=== PATIENT | male | born 1960 | race Caucasian/White ===

== ENCOUNTER 2019-03-18 17:07 | Emergency (ER) | payer MEDICARE, SELFPAY ==
[2019-03-18 17:21] VITALS: BP 132/76; PULSE 62; RESP 20; TEMP 36.7; O2SAT 100; BMI 28.5
[2019-03-18 18:54] LABS: Basophils # 0.1 10^3/uL (0.0-0.1); Basophils % 0.6 %; Eosinophils # 0.2 10^3/uL (0.0-0.8); Eosinophils % 1.9 %; Hematocrit 50.4 % (42.0-52.0); Hemoglobin 16.5 g/dL (11.7-16.6); Lymphocytes % 18.2 %; Mean Corpuscular HGB Conc 32.7 g/dL (30.0-36.0); Mean Corpuscular Hemoglobin 28.3 pg (28.0-34.0); Mean Corpuscular Volume 86.4 fL (80-94); Mean Platelet Volume 10.6 fL (7.4-10.4); Monocytes # 0.9 10^3/uL (0.2-0.9); Monocytes % 8.1 %; Neutrophils # 7.6 10^3/uL (1.8-7.7); Neutrophils % 70.6 %; Nucleated Red Blood Cells % 0 %; Platelet Count 210 10^3/cmm (130-400); Red Blood Count 5.83 10^6/uL (4.1-5.3); Red Cell Distribution Width 13.8 % (12.1-15.1); White Blood Count 10.8 10^3/uL (4.0-10.0)
[2019-03-18 19:02] LABS: Alanine Aminotransferase 20 U/L (0-41); Albumin Level 4.8 g/dL (3.5-5.2); Alkaline Phosphatase 106 IU/L (40-130); Anion Gap 16.1 (5-19); Aspartate Amino Transferase 17 U/L (0-40); Blood Urea Nitrogen 11 mg/dL (6-20); Carbon Dioxide 26 mmol/L (22-29); Chloride 99 mmol/L (98-107); Glomerular Filtration Rate 98.9 mL/min (90-130); Glucose 139 mg/dL (74-109); Lipase 196 U/L (13-60); Potassium 4.1 mmol/L (3.5-5.1); Sodium 137 mmol/L (136-145); Total Bilirubin 0.5 mg/dL (0.15-1.2); Total Protein 7.8 g/dL (6.6-8.7)
--- NOTE | 2019-03-18 19:47 | ED_ITS ---
Entered by Karena Stroud, acting as scribe for Lisa Sanchez Mar 18, 2019 17:07 HPI - Abdominal Pain General: Chief Complaint: Abdominal Pain Stated Complaint: abd pain Time Seen by Provider: 03/18/19 19:46 Source: patient Mode of arrival: ambulatory Limitations: no limitations History of Present Illness: HPI narrative: 59 yo male presents to ED with complaints of abdominal pain, nausea, and back pain. He said it feels like his stomach is going to blow up. The patient states this began Friday03.13.2019. He said he has pancreatitis. He said he has basically been on a liquid diet since then, with the exception of some eggs. The patient states he has had this pancreatitis flare due to eating the wrong foods. He denies alcohol use. MD elicited complaint: abdominal pain Pertinent past history: other (pancreatitis) Onset (ago): day(s) (5 days) Pain Consistency: constant Location: Diffuse Severity: moderate Quality: cramping Radiation: none Migration to: no migration Exacerbating factors: nothing Relieving factors: nothing Associated Symptoms: Denies chills, coffee ground emesis, constipation, GI cramping, diarrhea, dysuria, fever(s), hematochezia, hematuria, hematemesis, melena, nausea, syncope and vomiting Review of Systems Const: Denies: fever or chills Card: Denies: syncope GI: Denies: nausea, vomiting, vomiting blood, coffee grounds in vomit, diarrhea, constipation, cramping, blood in stool or black tarry stool : Denies: painful urination or blood in urine PFSH ED PFSH: Statuses (acute, chronic, etc) shown below reflect problem list status as previously entered and may not be historically accurate Social History Smoking and tobacco status: current every day smoker Physical Exam Const: COMMON NORMALS: no apparent distress, oriented x3, no limitations, healthy appearing and well nourished EXAM LIMITATIONS: no altered mental status GENERAL APPEARANCE: cooperative, well kempt and well developed ORIENTATION/CONSCIOUSNESS: Yes awake HENMT: COMMON NORMALS: normocephalic, head/scalp atraumatic, hearing grossly normal bilaterally, external ears normal, EAC's normal, external nose normal and moist oral mucous membranes HEAD & SCALP: normal to inspection, normocephalic and atraumatic FACE & SINUS: normal facial exam and face symmetric NOSE: external nose normal and nares normal EXTERNAL EAR: Yes external ears normal EXTERNAL AUDITORY CANAL: EAC's normal MOUTH: oral and palatal mucosa normal and tongue normal Eye: COMMON NORMALS: PERRL, EOMs intact bilaterally, conjunctivae normal and no scleral icterus GENERAL EYE: normal appearance of both eyes and normal light reflex CONJUNCTIVA: Yes conjunctivae normal SCLERA: sclerae normal CORNEA: Yes corneas normal PUPIL: Yes PERRL DIRECT OPHTHALMOSCOPY: Yes normal light reflex Neck/C-Spine: COMMON NORMALS: full ROM, no lymphadenopathy, supple, no meningeal signs and no JVD GENERAL: Yes normal visual inspection and Yes trachea midline CERVICAL SPINE: Yes cervical ROM normal Chest: COMMONS NORMALS: inspection of chest normal and palpation of chest normal Resp: COMMON NORMALS: normal respiratory effort, no retractions, no use of accessory muscles and clear to auscultation bilaterally EFFORT & INSPECTION: Yes able to speak in complete sentences AUSCULTATION: clear to auscultation bilaterally Cardio: COMMON NORMALS: no JVD, regular rate, regular rhythm, S1 normal heart sound, S2 normal heart sound, no gallops, no clicks, no murmurs and no rub JUGULAR VENOUS DISTENTION: no JVD RATE: regular rate RHYTHM: regular rhythm HEART SOUNDS: S1 normal and S2 normal GI: COMMON NORMALS: soft to palpation and no hepatosplenomegaly PALPATION: Yes soft, Yes tender Details: other (Diffusely) and Yes no hepatosplenomegaly : COMMON NORMALS: Yes no CVA tenderness BLADDER/KIDNEY EXAM: Yes no CVA tenderness Back/Pelvis: COMMON NORMALS: no CVA tenderness, thoracic and lumbar spine normal to inspection, no thoracic nor lumbar tenderness and thoraco-lumbar ROM normal Extremity: COMMON NORMALS: normal to inspection, full ROM, normal capillary refill, no joint enlargement, no clubbing, cyanosis or edema and no calf tenderness Neuro: COMMON NORMALS: oriented x3, CN's II-XII intact bilaterally, moves all extremities, no focal motor deficits and no sensory deficits noted MENINGEAL SIGNS: Yes no meningeal signs Psych: COMMON NORMALS: mental status grossly normal, thought process normal, cooperative, affect normal, speech normal and activity/motor behavior normal APPEARANCE: Yes well kempt SPEECH: Yes normal speech THOUGHT PROCESS: normal thought process Skin: COMMON NORMALS: no rashes or lesions noted, skin turgor normal, no jaundice, no petechiae and no mottling GENERAL SKIN EXAM: no rashes or les ions noted and turgor normal Course Vital Signs: Vital signs: Vital Signs Temperature 98.0 F 03/18/19 17:21 Pulse Rate 50 L 03/18/19 23:57 Respiratory Rate 18 03/18/19 23:57 Blood Pressure 123/60 03/18/19 23:57 Pulse Oximetry 98 03/18/19 23:57 MDM - Abdominal Pain MDM Narrative: Medical decision making narrative: 2345-we have been waiting for Dr. Austin to admit the patient but now the patient has changed his mind and wants to be discharged. He agrees to return should his symptoms change or worsen but at this time he would like to go home. He agrees to return should his symptoms change or worsen but his plan is to follow-up with his primary care physician Dr. Flores tomorrow and he will return here only if necessary. He agrees to follow a clear liquid diet, take pain medications and nausea medicines as necessary. Lab Data: Attestation: I reviewed the patient's lab results. Labs: Lab Results 03/18/19 03/18/19 03/18/19 Range/Units 18:40 18:40 21:01 WBC 10.8 H (4.0-10.0) 10^3/ uL RBC 5.83 H (4.1-5.3) 10^6/u L Hgb 16.5 (11.7-16.6) g/dL Hct 50.4 (42.0-52.0) % MCV 86.4 (80-94) fL MCH 28.3 (28.0-34.0) pg MCHC 32.7 (30.0-36.0) g/dL RDW 13.8 (12.1-15.1) % Plt Count 210 (130-400) 10^3/c mm MPV 10.6 H (7.4-10.4) fL Neut % (Auto) 70.6 % Lymph % (Auto) 18.2 % [place] % (Auto) 8.1 % Eos % (Auto) 1.9 % Baso % (Auto) 0.6 % Neut # (Auto) 7.6 (1.8-7.7) 10^3/u L Lymph # (Auto) 2.0 (0.8-4.8) 10^3/u L [place] # (Auto) 0.9 (0.2-0.9) 10^3/u L Eos # (Auto) 0.2 (0.0-0.8) 10^3/u L Baso # (Auto) 0.1 (0.0-0.1) 10^3/u L Nucleated RBC % (a uto) 0 % Nucleated RBCs # 0.0 /100WBC Sodium 137 (136-145) mmol/L Potassium 4.1 (3.5-5.1) mmol/L Chloride 99 (98-107) mmol/L Carbon Dioxide 26 (22-29) mmol/L Anion Gap 16.1 (5-19) BUN 11 (6-20) mg/dL Creatinine 0.8 (0.7-1.2) mg/dL GFR Calculation 98.9 (90-130) mL/min Glucose 139 H (74-109) mg/dL Calcium 10.0 (8.6-10.0) mg/Dl Total Bilirubin 0.5 (0.15-1.2) mg/dL AST 17 (0-40) U/L ALT 20 (0-41) U/L Alkaline Phosphata se 106 (40-130) IU/L Total Protein 7.8 (6.6-8.7) g/dL Albumin 4.8 (3.5-5.2) g/dL Globulin 3.0 (1.3-4.6) g/dL Lipase 196 H (13-60) U/L Urine Color Yellow (Yellow) Urine Appearance Clear (CLEAR) Urine pH 5 (5-7) Ur Specific Gravit y 1.025 (1.005-1.030) Urine Protein Neg (Negative) Urine Glucose (UA) Norm (Normal) Urine Ketones 2+ H (Negative) Urine Occult Blood Neg (Negative) Urine Nitrate Negative (Negative) Urine Bilirubin Neg (NEGATIVE) Urine Urobilinogen 1 H (Negative) mg/dL Ur Leukocyte Rachel ase Negative (Negative) Urine RBC 0-4 H (0-2) /hpf Urine WBC None (0-5) /hpf Ur Squamous Epith Cells None (0-5) Urine Bacteria Trace (NONE) Urine Mucus 2+ Imaging Data ^: CT Abd/Pel: Radiologist's impression: [facility] [address] [place] [address] CT Scan Report Signed Patient: Pranav Johnson MR#: [id number] : 1960 Acct:[id number] Age/Sex: 59 / M ADM Date: 03/18/19 Loc: ER Attending Dr: Ordering Physician: Lisa Sanchez DO Date of Service: 03/18/19 Procedure(s): CT abdomen pelvis w con* [id number] Accession Number(s): [id number] cc: Lisa Sanchez DO PROCEDURE INFORMATION: Exam: CT Abdomen And Pelvis With Contrast Exam date and time: 03/18/2019 8:27 PM Age: 59 years old Clinical indication: Abdominal pain; Prior surgery; Surgery type: Gb TECHNIQUE: Imaging protocol: Computed tomography of the abdomen and pelvis with intravenous contrast. Total DLP: 846.68 mGy-cm Radiation optimization: All CT scans at this facility use at least one of these dose optimization techniques: automated exposure control; mA and/or kV adjustment per patient size (includes targeted exams where dose is matched to clinical indication); or iterative reconstruction. Contrast material: OMNI 300; Contrast volume: 95 ml; Contrast route: IV; COMPARISON: CT Abdom[place] [id number] 01/12/2019 5:12 PM FINDINGS: Lungs: Lung bases are clear. Liver: The liver is normal. Gallbladder and bile ducts: The gallbladder is absent. There is no intrahepatic or extrahepatic bile duct dilation. Pancreas: There is subtle diffuse peripancreatic edema. Calcifications are seen in the pancreatic head suggesting chronic pancreatitis. The pancreatic duct is mildly dilated in the head. No mass. No fluid collection. Spleen: The spleen is unremarkable. Adrenals: The adrenal glands are unremarkable. Kidneys and ureters: There is a nonobstructive stone in the left kidney. There is no hydronephrosis or ureteral dilation. The right kidney and ureter are unremarkable. Stomach and bowel: The stomach is unremarkable. The small bowel is nondilated. There is no sign of inflammation. The colon is unremarkable. Appendix: The appendix is normal. Intraperitoneal space: There is no free air or significant intraperitoneal free fluid. Vasculature: There is mild aortic atherosclerotic disease. Lymph nodes: There is no lymphadenopathy in the retroperitoneum, mesentery, pelvis or inguinal regions. Bladder: The urinary bladder is unremarkable. Reproductive: The prostate and seminal vesicles are unremarkable. Bones/joints: There is moderate degenerative disease in the lumbar spine. There is mild degenerative disease of the right hip. Soft tissues: The abdominal wall is intact. CT/CT abdomen pelvis w con* [id number] IMPRESSION: Suspect mild acute on chronic interstitial edematous pancreatitis. No hemorrhage or fluid collection. Radiation Dose CTDIVOL = (mGy): DLP = 846.68 (mGy-cm) Dictated By: Matthias Castrejon MD 03/18/192129 Signed By: Matthias Castrejon MD 03/18/192130 Discharge Plan Discharge Patient Disposition: Home, Self-Care Clinical Impression: Pancreatitis Qualifiers: Chronicity: chronic Pancreatitis type: idiopathic Qualified Code(s): K86.1 - Other chronic pancreatitis Condition: Stable Prescriptions: [place] 5-325 mg tablet 1 tab PO Q8H PRN (Reason: pain) Qty: 14 RF: 0 Discharge Orders: Discharge Order (Routine); Ordered 03/18/19 Ordered By: Lisa Sanchez Referrals: Hector Flores DO [Primary Care Provider] - 1-3 days Discharge Diet: Clear Liquid Discharge Activity: Increase activity as tolerated Patient Instructions: Pancreatitis (ED) Activity Restrictions/Additional Instructions: Please return to the ER immediately for any of the signs or symptoms listed on your discharge instruction sheets, worsening/changing of your symptoms, you are not getting better as quickly as expected, or for ANY other cause or concerns. Follow a clear liquid diet and take the pain medications as I have prescribed you. Be certain to follow-up with Dr. Flores or return here if your symptoms change or worsen at all. Discharge Date/Time: 03/18/19 23:59 Coding Level of Care Code ED Supervisor [employer] for Chg Fwd The documentation recorded by the Luanne meehan Valerie R, accurately reflects the service I personally performed and the decisions made by Daniel henderson Eli N Mar 18, 2019 17:07
--- NOTE | 2019-03-18 19:52 | CTR_ITS ---
PROCEDURE INFORMATION: Exam: CT Abdomen And Pelvis With Contrast Exam date and time: 03/18/2019 8:27 PM Age: 59 years old Clinical indication: Abdominal pain; Prior surgery; Surgery type: Gb TECHNIQUE: Imaging protocol: Computed tomography of the abdomen and pelvis with intravenous contrast. Total DLP: 846.68 mGy-cm Radiation optimization: All CT scans at this facility use at least one of these dose optimization techniques: automated exposure control; mA and/or kV adjustment per patient size (includes targeted exams where dose is matched to clinical indication); or iterative reconstruction. Contrast material: OMNI 300; Contrast volume: 95 ml; Contrast route: IV; COMPARISON: CT Abdomen/[place] [id number] 01/12/2019 5:12 PM FINDINGS: Lungs: Lung bases are clear. Liver: The liver is normal. Gallbladder and bile ducts: The gallbladder is absent. There is no intrahepatic or extrahepatic bile duct dilation. Pancreas: There is subtle diffuse peripancreatic edema. Calcifications are seen in the pancreatic head suggesting chronic pancreatitis. The pancreatic duct is mildly dilated in the head. No mass. No fluid collection. Spleen: The spleen is unremarkable. Adrenals: The adrenal glands are unremarkable. Kidneys and ureters: There is a nonobstructive stone in the left kidney. There is no hydronephrosis or ureteral dilation. The right kidney and ureter are unremarkable. Stomach and bowel: The stomach is unremarkable. The small bowel is nondilated. There is no sign of inflammation. The colon is unremarkable. Appendix: The appendix is normal. Intraperitoneal space: There is no free air or significant intraperitoneal free fluid. Vasculature: There is mild aortic atherosclerotic disease. Lymph nodes: There is no lymphadenopathy in the retroperitoneum, mesentery, pelvis or inguinal regions. Bladder: The urinary bladder is unremarkable. Reproductive: The prostate and seminal vesicles are unremarkable. Bones/joints: There is moderate degenerative disease in the lumbar spine. There is mild degenerative disease of the right hip. Soft tissues: The abdominal wall is intact. CT/CT abdomen pelvis w con* [id number] IMPRESSION: Suspect mild acute on chronic interstitial edematous pancreatitis. No hemorrhage or fluid collection. Radiation Dose CTDIVOL = (mGy): DLP = 846.68 (mGy-cm)
[2019-03-18 20:32] VITALS: RESP 18; O2SAT 96
[2019-03-18] MEDS: HYDROmorphone 1 mg/mL INJ 1 mL IVP ×2 (20:32→21:57)
[2019-03-18] MEDS: ondansetron 2 mg/ML SDV 2 mL 4 MG IVP (20:33)
[2019-03-18] MEDS: sodium chloride 0.9% 2,857.62 ML 2857.6 ML IV (20:34)
[2019-03-18] MEDS: iohexol 300 mg/mL 100 mL Btl 95 ML IV (20:46)
[2019-03-18 21:20] LABS: Bilirubin Urine Neg (NEGATIVE); Blood Urine Neg (Negative); Glucose Urine UA Norm (Normal); Ketones Urine 2+ (Negative); Leukocyte Esterase Urine Negative (Negative); Nitrate Urine Negative (Negative); Protein Urine Neg (Negative); Specific Gravity, Urine 1.025 (1.005-1.030); Urine Appearance Clear (CLEAR); Urine Color Yellow (Yellow); Urobilinogen Urine 1 mg/dL (Negative); pH Urine 5 (5-7)
--- NOTE | 2019-03-18 21:27 | PC.NURSE ---
PT WAITING CT RESULTS AND LAB RESULTS. IVF'S INFUSING WITHOUT DIFFICULTY. MONITOR RECORDING VITAL SIGNS. NAD. RESTING WITH EYES OPEN.
[2019-03-18 21:32] LABS: Add Urine Culture? No; Bacteria Urine TRACE; Mucus Urine 2+; RBC Urine 0-4 /hpf (0-2)
[2019-03-18 23:57] VITALS: BP 123/60; PULSE 50; RESP 18; O2SAT 98
== END 2019-03-18 23:59 | disposition home or self-care (01) ==
PROVIDERS: Emergency Medicine; Emergency Provider Emergency Medicine; Family Provider Family Medicine; PCP Family Medicine
DX: K86.1 Other chronic pancreatitis (principal); F17.210 Nicotine dependence, cigarettes, uncomplicated
CPT/HCPCS: 36415; 74177; 80053; 81001; 83690; 85025; 96360; 96374; 96375; 99282; J1170; J2405; J7030; Q9967

== ENCOUNTER → 2019-07-28 11:02 | Outpatient (BNVA) | payer MEDICARE, SELFPAY | PROVIDERS: Family Provider Family Medicine; PCP Family Medicine; Visit Provider Family Medicine | DX: K86.1 Other chronic pancreatitis (principal); E55.9 Vitamin D deficiency, unspecified | CPT/HCPCS: 36415; 80053; 80061; 82150; 82306; 83690; 85025 ==

== ENCOUNTER 2019-10-14 19:18 | Emergency (ER) | payer MEDICARE, SELFPAY ==
[2019-10-14] VITALS (7 sets, daily range): BP systolic 107–123; BP diastolic 61–83; PULSE 70–83; RESP 14–17; TEMP 37.3; O2SAT 94–96; BMI 27.1
--- NOTE | 2019-10-14 20:03 | XRR_ITS ---
PROCEDURE INFORMATION: Exam: XR Chest, 1 View Exam date and time: 10/14/2019 8:29 PM Age: 59 years old Clinical indication: Other: Pleuritic pain; Prior surgery; Surgery type: Gb TECHNIQUE: Imaging protocol: XR of the chest Views: 1 view. COMPARISON: CR Chest 2 views* [id number] 07/20/2015 7:11 PM FINDINGS: Lungs: Linear platelike atelectasis suspected within the lingula adjacent to the left heart border. Lungs are otherwise well aerated. Pleural space: Unremarkable. No pleural effusion. No pneumothorax. Heart/Mediastinum: Unremarkable. No cardiomegaly. Bones/joints: Unremarkable. XR/XR chest 1V portable [id number] IMPRESSION: Linear platelike atelectasis suspected within the lingula adjacent to the left heart border. Lungs are otherwise well aerated.
--- NOTE | 2019-10-14 20:03 | CTR_ITS ---
PROCEDURE INFORMATION: Exam: CT Abdomen And Pelvis With Contrast Exam date and time: 10/14/2019 8:14 PM Age: 59 years old Clinical indication: Abdominal pain; Localized; Right lower quadrant (rlq); Prior surgery; Surgery type: Gb, pancreatic stent TECHNIQUE: Imaging protocol: Computed tomography of the abdomen and pelvis with intravenous contrast. Radiation optimization: All CT scans at this facility use at least one of these dose optimization techniques: automated exposure control; mA and/or kV adjustment per patient size (includes targeted exams where dose is matched to clinical indication); or iterative reconstruction. Contrast material: OMNI 300; Contrast volume: 95 ml; Contrast route: INTRAVENOUS (IV); COMPARISON: CT abdomen pelvis w con* [id number] 03/18/2019 9:00 PM RADIATION DOSE METRICS: Total DLP (mGy-cm): 717.28 FINDINGS: Liver: Normal. No mass. Gallbladder and bile ducts: Cholecystectomy. Pancreas: Pancreatic duct stent. Spleen: Normal. No splenomegaly. Adrenals: Normal. No mass. Kidneys and ureters: Left kidney nonobstructive calyceal stone. Stomach and bowel: Constipation. Appendix: No evidence of appendicitis. Intraperitoneal space: Unremarkable. No free air. No significant fluid collection. Vasculature: Unremarkable. No abdominal aortic aneurysm. Lymph nodes: Unremarkable. No enlarged lymph nodes. Bladder: Unremarkable as visualized. Reproductive: Unremarkable as visualized. Bones/joints: Unremarkable. No acute fracture. Soft tissues: Unremarkable. CT/CT abdomen pelvis w con* [id number] IMPRESSION: 1. Negative for acute inflammatory process in the abdomen or pelvis 2. Pancreatic duct stent. 3. Cholecystectomy. 4. Left kidney nonobstructive calyceal stone. 5. Constipation. Radiation Dose CTDIVOL = (mGy): DLP = 717.28 (mGy-cm)
--- NOTE | 2019-10-14 20:06 | W.ED.ABDPA2 ---
HPI - Abdominal Pain General: Chief Complaint: Abdominal Pain Stated Complaint: ab pain Time Seen by Provider: 10/14/19 19:59 Source: patient Mode of arrival: ambulatory Limitations: no limitations History of Present Illness: HPI narrative: Pranav is a nice 59-year-old male who comes in complaining of right upper quadrant abdominal pain. 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 He denies any vomiting but has been nauseated. He denies any lower abdominal pain. He has been constipated but he states that is not atypical for him. The patient is most concerned about his pancreatic stent. 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 There is currently still a stent in place and he is scheduled to have it out next Friday. Patient is concerned this could be causing that problem. He states his pain is not like his typical pancreatic pain and more like a pulled muscle. The patient states it is possible he may have just pulled a muscle when he was painting. His gallbladder is gone. Denies any cough or shortness of breath or chest pain. Associated Symptoms: Denies chills, coffee ground emesis, constipation, GI cramping, diarrhea, dysuria, fever(s), heartburn, hematochezia, hematuria, hematemesis, melena, nausea, syncope and vomiting Review of Systems Const: Denies: fever(s), chills, body aches, fatigue, malaise or diaphoresis Eyes: Denies: change in vision, blurry vision, blind spots, photophobia, eye discharge or eye redness ENMT: Denies: throat pain, odynophagia, hoarseness, swelling of lips/tongue, oral sores, ear or mastoid pain, ear discharge, change in hearing or nasal discharge Card: Denies: chest pain, palpitations, irregular heart rhythm, edema, lightheadedness, syncope, pre-syncope, dyspnea on exertion or orthopnea Resp: Denies: dyspnea, productive cough, non-productive cough, wheezing, hemoptysis or chest congestion GI: Denies: nausea, vomiting, hematemesis, coffee ground emesis, heartburn, diarrhea, constipation, GI cramping, hematochezia or melena : Denies: flank pain, dysuria, urinary frequency, urinary urgency or hematuria Musc: Denies: neck pain, back pain, extremity pain, extremity swelling, joint pain, joint swelling, joint redness, joint warmth or joint stiffness Skin/Breast: Denies: rash, pruritus, erythema, skin tenderness or jaundice Neuro: Denies: headache(s), numbness in extremities, weakness in extremities, sensory changes, lack of coordination, difficulty walking, dizziness, vertigo, confusion, Slurred speech present or seizure-like activity Ian/Lymph: Denies: easy bruising, easy bleeding, petechiae, purpura or enlarged lymph nodes All/Imm: Denies: urticaria, throat swelling, tongue swelling, facial swelling or acute wheezing PFSH ED PFSH: Medical History (Updated 10/14/19 @ 22:04 by Lisa Sanchez) Acute pancreatitis Diabetes GERD (gastroesophageal reflux disease) Hyperlipidemia Idiopathic chronic pancreatitis Insomnia Presence of pancreatic duct stent PTSD (post-traumatic stress disorder) Surgical History (Updated 10/14/19 @ 20:07 by Lisa Sanchez) History of back surgery S/P cholecystectomy Social History Smoking and tobacco status: current every day smoker cigarettes Packs smoked per day: 1 Alcohol intake: never Physical Exam Const: COMMON NORMALS: no acute distress, patient oriented x3, no limitations, healthy appearing and well nourished GENERAL APPEARANCE: cooperative, well kempt and well developed HENMT: COMMON NORMALS: normocephalic, atraumatic, external ears normal, EAC's normal and Normal external nose present HEAD & SCALP: normal to inspection, normocephalic and atraumatic FACE & SINUS: normal facial exam and face symmetric NOSE: Normal external nose present and Normal nares present EXTERNAL EAR: Yes external ears normal EXTERNAL AUDITORY CANAL: EAC's normal MOUTH: Normal oral and palatal mucosa present, lip normal and tongue normal Eye: COMMON NORMALS: Equal, round and reactive pupils present and conjunctivae normal GENERAL EYE: appearance normal, both eyes and all related structures ALIGNMENT: Yes alignment normal PERIORBITAL: periorbital findings normal EYELID: eyelids normal CONJUNCTIVA: Yes conjunctivae normal SCLERA: sclerae normal PUPIL: Yes Equal, round and reactive pupils present Neck/C-Spine: COMMON NORMALS: full ROM, no lymphadenopathy, supple, no meningeal signs and no JVD GENERAL: Yes normal visual inspection and Yes trachea midline Chest: COMMONS NORMALS: normal inspection of the chest and normal palpation of entire chest wall Resp: COMMON NORMALS: normal respiratory effort, No retractions and No use of accessory muscles EFFORT & INSPECTION: Yes able to speak in complete sentences and Yes symmetric chest movement AUSCULTATION: no crackles, no rales, no rhonchi and no wheezes Cardio: COMMON NORMALS: no JVD, regular rate, regular rhythm, S1 normal heart sound present and S2 normal heart sound present RATE: regular rate RHYTHM: regular rhythm HEART SOUNDS: S1 normal heart sound present, S2 normal heart sound present, no click, no gallops, no murmurs, no rubs and abnormal split S2 GI: COMMON NORMALS: Soft to palpation and No hepatosplenomegaly present PALPATION: Yes Soft to palpation, Yes Tenderness to palpation present (GI) (Moderate diffusely), No Guarding due to palpation present (GI), No Rigid due to palpation, Yes No hepatosplenomegaly present, No Hernia present, No Palpable mass present and No Pulsatile mass present : COMMON NORMALS: Yes no CVA tenderness BLADDER/KIDNEY EXAM: Yes no CVA tenderness Back/Pelvis: COMMON NORMALS: no CVA tenderness, thoracic and lumbar spine normal to inspection, no thoracic nor lumbar tenderness and thoraco-lumbar ROM normal Extremity: COMMON NORMALS: normal to inspection, full ROM, capillary refill normal, no joint enlargement, no clubbing, cyanosis or edema and no calf tenderness Neuro: COMMON NORMALS: patient oriented x3, CN's II-XII intact bilaterally, moves all extremities, no focal motor deficits and no sensory deficits noted MENINGEAL SIGNS: Yes no meningeal signs SPEECH: speech normal Psych: COMMON NORMALS: mental status grossly normal, Normal thought process present, cooperative, normal affect, speech normal and activity/motor behavior normal APPEARANCE: Yes well kempt SPEECH: Yes normal speech THOUGHT PROCESS: Normal thought process present Skin: COMMON NORMALS: no rashes or lesions noted, turgor normal, no jaundice, no petechiae and no mottling GENERAL SKIN EXAM: no rashes or lesions noted and turgor normal Course Vital Signs: Vital signs: Vital Signs Temperature 99.1 F 10/14/19 19:54 Pulse Rate 75 10/14/19 22:11 Respiratory Rate 16 10/14/19 22:11 Blood Pressure 115/67 10/14/19 22:11 Pulse Oximetry 95 10/14/19 22:11 MDM - Abdominal Pain MDM Narrative: Medical decision making narrative: The case was reviewed with 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 Reyes. He agrees with the patient's work-up and plan. He believes the patient can be discharged to follow-up with him on Friday as scheduled. I see no sign of acute life threats in the patient's abdomen or based upon his history or physical exam. He could be gastritis, pulled muscle, early pneumonia, or several other things that could be present. The patient declines any further evaluation and care at this time as a CT scan is shown his stents in place he is satisfied and ready to go home. He agrees to return should his symptoms change or worsen and he will follow-up as directed with his plant maintenance engineer. Lab Data: Attestation: I reviewed the patient's lab results. Labs: Lab Results 10/14/19 10/14/19 10/14/19 Range/Units 20:05 20:05 20:05 WBC 11.7 H (4.0-10.0) 10^3/ uL RBC 5.68 H (4.1-5.3) 10^6/u L Hgb 16.6 (11.7-16.6) g/dL Hct 50.9 (42.0-52.0) % MCV 89.6 (80-94) fL MCH 29.2 (28.0-34.0) pg MCHC 32.6 (30.0-36.0) g/dL RDW 13.3 (12.1-15.1) % Plt Count 188 (130-400) 10^3/c mm MPV 10.2 (7.4-10.4) fL Neut % (Auto) 67.0 % Lymph % (Auto) 18.5 % [place] % (Auto) 10.1 % Eos % (Auto) 2.7 % Baso % (Auto) 0.8 % Neut # (Auto) 7.84 H (1.8-7.7) 10^3/u L Lymph # (Auto) 2.2 (0.8-4.8) 10^3/u L [place] # (Auto) 1.2 H (0.2-0.9) 10^3/u L Eos # (Auto) 0.3 (0.0-0.8) 10^3/u L Baso # (Auto) 0.1 (0.0-0.1) 10^3/u L Nucleated RBC % (a uto) 0 % Nucleated RBCs # 0.0 /100WBC D-Dimer 0.54 (0-0.59) ug/mIFE U Sodium 136 (136-145) mmol/L Potassium 4.5 (3.5-5.1) mmol/L Chloride 98 (98-107) mmol/L Carbon Dioxide 30 H (22-29) mmol/L Anion Gap 12.5 (5-19) BUN 18 (6-20) mg/dL Creatinine 1.0 (0.7-1.2) mg/dL GFR Calculation 76.5 L (90-130) mL/min Glucose 135 H (65-115) mg/dL Calculated Osmolal ity 281 L (285-295) mOsm/k g Calcium 9.6 (8.5-10.5) mg/dL Total Bilirubin 0.5 (0.15-1.2) mg/dL AST 15 (0-40) U/L ALT 16 (0-41) U/L Alkaline Phosphata se 110 (40-130) IU/L Total Protein 7.5 (6.6-8.7) g/dL Albumin 4.6 (3.5-5.2) g/dL Globulin 2.9 (1.3-4.6) g/dL Lipase 130 H (13-60) U/L Urine Color (Yellow) Urine Appearance (CLEAR) Urine pH (5-7) Ur Specific Gravit y (1.005-1.030) Urine Protein (Negative) Urine Glucose (UA) (Normal) Urine Ketones (Negative) Urine Blood (Negative) Urine Nitrate (Negative) Urine Bilirubin (NEGATIVE) Urine Urobilinogen (Negative) mg/dL Ur Leukocyte Rachel ase (Negative) Urine RBC (0-2) /hpf Urine WBC (0-5) /hpf Ur Squamous Epith Cells (0-5) Amorphous Sediment Urine Bacteria (NONE) 10/14/19 Range/Units 21:16 WBC (4.0-10.0) 10^3/ uL RBC (4.1-5.3) 10^6/u L Hgb (11.7-16.6) g/dL Hct (42.0-52.0) % MCV (80-94) fL MCH (28.0-34.0) pg MCHC (30.0-36.0) g/dL RDW (12.1-15.1) % Plt Count (130-400) 10^3/c mm MPV (7.4-10.4) fL Neut % (Auto) % Lymph % (Auto) % [place] % (Auto) % Eos % (Auto) % Baso % (Auto) % Neut # (Auto) (1.8-7.7) 10^3/u L Lymph # (Auto) (0.8-4.8) 10^3/u L [place] # (Auto) (0.2-0.9) 10^3/u L Eos # (Auto) (0.0-0.8) 10^3/u L Baso # (Auto) (0.0-0.1) 10^3/u L Nucleated RBC % (a uto) % Nucleated RBCs # /100WBC D-Dimer (0-0.59) ug/mIFE U Sodium (136-145) mmol/L Potassium (3.5-5.1) mmol/L Chloride (98-107) mmol/L Carbon Dioxide (22-29) mmol/L Anion Gap (5-19) BUN (6-20) mg/dL Creatinine (0.7-1.2) mg/dL GFR Calculation (90-130) mL/min Glucose (65-115) mg/dL Calculated Osmolal ity (285-295) mOsm/k g Calcium (8.5-10.5) mg/dL Total Bilirubin (0.15-1.2) mg/dL AST (0-40) U/L ALT (0-41) U/L Alkaline Phosphata se (40-130) IU/L Total Protein (6.6-8.7) g/dL Albumin (3.5-5.2) g/dL Globulin (1.3-4.6) g/dL Lipase (13-60) U/L Urine Color Dark yellow (Yellow) Urine Appearance Clear (CLEAR) Urine pH 5 (5-7) Ur Specific Gravit y 1.020 (1.005-1.030) Urine Protein Neg (Negative) Urine Glucose (UA) 4+ H (Normal) Urine Ketones Negative (Negative) Urine Blood Neg (Negative) Urine Nitrate Negative (Negative) Urine Bilirubin Neg (NEGATIVE) Urine Urobilinogen 1 H (Negative) mg/dL Ur Leukocyte Rachel ase Negative (Negative) Urine RBC Rare (0-2) /hpf Urine WBC 0-4 H (0-5) /hpf Ur Squamous Epith Cells Rare (0-5) Amorphous Sediment Not Reportable Urine Bacteria Trace (NONE) Imaging Data ^: CXR: My impression: No acute cardiopulmonary findings. Atelectasis left lung base CT Abd/Pel: Radiologist's impression: [place] [address] CT Scan Report Signed Patient: Pranav Johnson Unit #: [id number] : [id number] Age/Sex: 59 / M ADM Date: 10/14/19 Loc: ER Room/Bed: Attending Dr: Ordering Provider/Ordering MD: Lisa Sanchez DO Date of Service: 10/14/19 Procedure(s): CT abdomen pelvis w con* [id number] Accession Number(s): [id number] Report Number: [id number] PROCEDURE INFORMATION: Exam: CT Abdomen And Pelvis With Contrast Exam date and time: 10/14/2019 8:14 PM Age: 59 years old Clinical indication: Abdominal pain; Localized; Right lower quadrant (rlq); Prior surgery; Surgery type: Gb, pancreatic stent TECHNIQUE: Imaging protocol: Computed tomography of the abdomen and pelvis with intravenous contrast. Radiation optimization: All CT scans at this facility use at least one of these dose optimization techniques: automated exposure control; mA and/or kV adjustment per patient size (includes targeted exams where dose is matched to clinical indication); or iterative reconstruction. Contrast material: OMNI 300; Contrast volume: 95 ml; Contrast route: INTRAVENOUS (IV); COMPARISON: CT abdomen pelvis w con* [id number] 03/18/2019 9:00 PM RADIATION DOSE METRICS: Total DLP (mGy-cm): 717.28 FINDINGS: Liver: Normal. No mass. Gallbladder and bile ducts: Cholecystectomy. Pancreas: Pancreatic duct stent. Spleen: Normal. No splenomegaly. Adrenals: Normal. No mass. Kidneys and ureters: Left kidney nonobstructive calyceal stone. Stomach and bowel: Constipation. Appendix: No evidence of appendicitis. Intraperitoneal space: Unremarkable. No free air. No significant fluid collection. Vasculature: Unremarkable. No abdominal aortic aneurysm. Lymph nodes: Unremarkable. No enlarged lymph nodes. Bladder: Unremarkable as visualized. Reproductive: Unremarkable as visualized. Bones/joints: Unremarkable. No acute fracture. Soft tissues: Unremarkable. CT/CT abdomen pelvis w con* [id number] IMPRESSION: 1. Negative for acute inflammatory process in the abdomen or pelvis 2. Pancreatic duct stent. 3. Cholecystectomy. 4. Left kidney nonobstructive calyceal stone. 5. Constipation. Radiation Dose CTDIVOL = (mGy): DLP = 717.28 (mGy-cm) Dictated By: Wander Park MD Signed By: Wander Park MD Signed Date/Time: 10/14/192048 DD/ 47 Discharge Plan Discharge Patient Disposition: Home Clinical Impression: Abdominal pain Qualifiers: Abdominal location: upper abdomen, unspecified Qualified Code(s): R10.10 - Upper abdominal pain, unspecified Condition: Stable Prescriptions: New Zofran 4 mg tablet 4 mg PO Q6H PRN (Reason: nausea and vomiting) Qty: 20 RF: 0 No Action cholecalciferol (vitamin D3) 50,000 unit capsule 50,000 unit PO .week RF: 0 lovastatin 40 mg tablet 40 mg PO QDAY RF: 0 sildenafil [Viagra] 100 mg tablet 100 mg PO QDAY PRNRF: 0 fluticasone propionate 50 mcg/actuation spray,suspension 1 spray INTRANASAL BID RF: 0 (DME) blood-glucose meter [FreeStyle [place]] Kit See Rx Instructions .ROUTE .MEDSUPPLY Qty: 1 RF: 0 (DME) FreeStyle Lite Strips Strip See Rx Instructions .ROUTE .MEDSUPPLY Qty: 10 RF: 0 Creon 24,000-76,000 -120,000 unit capsule,delayed release(DR/EC) 1 cap PO TID Qty: 90 RF: 11 pregabalin 50 mg capsule 50 mg PO BID Qty: 60 RF: 2 Discharge Orders: Discharge Order (Routine); Ordered 10/14/19 Ordered By: Lisa Sanchez Referrals: Hector Flores DO [Primary Care Provider] - 1-3 days Discharge Diet: Advance as tolerated and Clear Liquid Discharge Activity: Increase activity as tolerated Patient Instructions: Abdominal Pain (ED) Activity Restrictions/Additional Instructions: Please return to the ER immediately for any of the signs or symptoms listed on your discharge instruction sheets, worsening/changing of your symptoms, you are not getting better as quickly as expected, or for ANY other cause or concerns. I have reviewed your case with Dr. Reyes, he wants you to continue to take your medications that he has prescribed you. Be certain to follow-up on Friday for your pancreas stent to be removed. Return to the ER for return of your pain, fever, vomiting, blood in her stools, or for any other cause for concern. Discharge Date/Time: 10/14/19 22:12 Coding Level of Care Code ED Assistant Controller for Lilia Calvin Exam Comprehensive
[2019-10-14 20:20] LABS: Basophils # 0.1 10^3/uL (0.0-0.1); Basophils % 0.8 %; Eosinophils # 0.3 10^3/uL (0.0-0.8); Eosinophils % 2.7 %; Hematocrit 50.9 % (42.0-52.0); Hemoglobin 16.6 g/dL (11.7-16.6); Lymphocytes # 2.2 10^3/uL (0.8-4.8); Lymphocytes % 18.5 %; Mean Corpuscular HGB Conc 32.6 g/dL (30.0-36.0); Mean Corpuscular Hemoglobin 29.2 pg (28.0-34.0); Mean Corpuscular Volume 89.6 fL (80-94); Mean Platelet Volume 10.2 fL (7.4-10.4); Monocytes # 1.2 10^3/uL (0.2-0.9); Monocytes % 10.1 %; Neutrophils # 7.84 10^3/uL (1.8-7.7); Nucleated Red Blood Cells % 0 %; Platelet Count 188 10^3/cmm (130-400); Red Blood Count 5.68 10^6/uL (4.1-5.3); Red Cell Distribution Width 13.3 % (12.1-15.1); White Blood Count 11.7 10^3/uL (4.0-10.0)
[2019-10-14] MEDS: HYDROmorphone 1 mg/mL INJ 1 mL IVP ×2 (20:23→21:03)
[2019-10-14] MEDS: ondansetron 2 mg/ML SDV 2 mL 4 MG IVP (20:23)
[2019-10-14] MEDS: sodium chloride 0.9% 1,000 ML 999 ML IV (20:23)
[2019-10-14 20:31] LABS: Alanine Aminotransferase 16 U/L (0-41); Albumin Level 4.6 g/dL (3.5-5.2); Alkaline Phosphatase 110 IU/L (40-130); Anion Gap 12.5 (5-19); Aspartate Amino Transferase 15 U/L (0-40); Blood Urea Nitrogen 18 mg/dL (6-20); Calcium 9.6 mg/dL (8.5-10.5); Carbon Dioxide 30 mmol/L (22-29); Chloride 98 mmol/L (98-107); Globulin 2.9 g/dL (1.3-4.6); Glomerular Filtration Rate 76.5 mL/min (90-130); Glucose 135 mg/dL (65-115); Lipase 130 U/L (13-60); Osmolality Calculated 281 mOsm/kg (285-295); Potassium 4.5 mmol/L (3.5-5.1); Sodium 136 mmol/L (136-145); Total Bilirubin 0.5 mg/dL (0.15-1.2); Total Protein 7.5 g/dL (6.6-8.7)
[2019-10-14] MEDS: iohexol 300 mg/mL 100 mL Btl IV (20:31)
[2019-10-14 21:15] LABS: D Dimer 0.54 ug/mIFEU (0-0.59)
[2019-10-14] MEDS: sodium chloride 0.9% 1,000 ML 100 ML IV (21:39)
[2019-10-14] MEDS: cyclobenzaprine 10 mg Tablet PO (21:53)
[2019-10-14] MEDS: lidocaine 2% viscous 15 ML, aluminum-mag hydrox-simethicon 30 ML, sucralfate oral liq 1 GM PO (21:54)
[2019-10-14 21:57] LABS: Bacteria Urine TRACE; Bilirubin Urine Neg (NEGATIVE); Blood Urine Neg (Negative); Glucose Urine UA 4+ (Normal); Ketones Urine Negative (Negative); Leukocyte Esterase Urine Negative (Negative); Nitrate Urine Negative (Negative); Protein Urine Neg (Negative); RBC Urine RARE /hpf (0-2); Squamous Epithelial Cell Urine RARE (0-5); Urine Appearance Clear (CLEAR); Urine Color Dark Yellow (Yellow); Urobilinogen Urine 1 mg/dL (Negative); WBC Urine 0-4 /hpf (0-5); pH Urine 5 (5-7)
== END 2019-10-14 22:12 | disposition home or self-care (01) ==
PROVIDERS: Emergency Medicine; Emergency Provider Emergency Medicine; PCP Family Medicine
DX: R10.10 Upper abdominal pain, unspecified (principal); E78.5 Hyperlipidemia, unspecified; F17.210 Nicotine dependence, cigarettes, uncomplicated; E11.9 Type 2 diabetes mellitus without complications
CPT/HCPCS: 12345; 71045; 74177; 80053; 81001; 83690; 85025; 85378; 96360; 96361; 96374; 96375; 96376; 99283; 99284; J1170; J2405; J7030; Q9967

== ENCOUNTER 2019-11-24 09:27 | Outpatient (CLI) | payer MEDICARE, SELFPAY ==
[2019-11-24 09:59] LABS: Basophils # 0.1 10^3/uL (0.0-0.1); Basophils % 1.4 %; Eosinophils # 0.3 10^3/uL (0.0-0.8); Eosinophils % 3.5 %; Hematocrit 56.2 % (42.0-52.0); Hemoglobin 17.8 g/dL (11.7-16.6); Lymphocytes % 23.2 %; Mean Corpuscular HGB Conc 31.7 g/dL (30.0-36.0); Mean Corpuscular Hemoglobin 28.3 pg (28.0-34.0); Mean Corpuscular Volume 89.3 fL (80-94); Monocytes # 0.7 10^3/uL (0.2-0.9); Monocytes % 8.1 %; Neutrophils # 5.48 10^3/uL (1.8-7.7); Neutrophils % 62.8 %; Nucleated Red Blood Cells % 0 %; Platelet Count 215 10^3/cmm (130-400); Red Blood Count 6.29 10^6/uL (4.1-5.3); Red Cell Distribution Width 13.4 % (12.1-15.1); White Blood Count 8.7 10^3/uL (4.0-10.0)
[2019-11-24 10:19] LABS: Estmated Average Glucose 177; Hemoglobin A1C 7.8 % (4.0-6.0)
[2019-11-24 10:21] LABS: Alanine Aminotransferase 21 U/L (0-41); Albumin Level 4.5 g/dL (3.5-5.2); Alkaline Phosphatase 116 IU/L (40-130); Anion Gap 15.4 (5-19); Aspartate Amino Transferase 13 U/L (0-40); Blood Urea Nitrogen 14 mg/dL (6-20); Calcium 9.2 mg/dL (8.5-10.5); Carbon Dioxide 26 mmol/L (22-29); Chloride 102 mmol/L (98-107); Chol HDL Ratio 5.68 mg/dL (1.0-5.00); Cholesterol 193 mg/dL (0-200); Globulin 3.2 g/dL (1.3-4.6); Glomerular Filtration Rate 86.4 mL/min (90-130); Glucose 238 mg/dL (65-115); HDL Cholesterol 34 mg/dL (60-100); LDL Cholesterol Calculated 89 mg/dL (50-129); LDL HDL Ratio 2.62 RATIO (0.00-3.22); Osmolality Calculated 292 mOsm/kg (285-295); Potassium 4.4 mmol/L (3.5-5.1); Sodium 139 mmol/L (136-145); Total Bilirubin 0.5 mg/dL (0.15-1.2); Total Protein 7.7 g/dL (6.6-8.7); Triglycerides 348 mg/dL (0-150)
== END 2019-11-24 09:28 | disposition home or self-care (01) ==
LOC: LAB 09:29
PROVIDERS: PCP Family Medicine; Visit Provider Family Medicine
DX: E11.9 Type 2 diabetes mellitus without complications (principal); E78.5 Hyperlipidemia, unspecified; Z96.89 Presence of other specified functional implants; Z00.00 Encounter for general adult medical examination without abnormal findings
CPT/HCPCS: 80053; 80061; 83036; 85025

== ENCOUNTER 2019-12-16 07:54 | Outpatient (CLI) | payer MEDICARE, SELFPAY ==
[2019-12-16 08:40] LABS: Basophils # 0.1 10^3/uL (0.0-0.1); Basophils % 1.2 %; Eosinophils # 0.3 10^3/uL (0.0-0.8); Eosinophils % 3.2 %; Hematocrit 53.4 % (42.0-52.0); Hemoglobin 17.5 g/dL (11.7-16.6); Lymphocytes % 23.4 %; Mean Corpuscular HGB Conc 32.8 g/dL (30.0-36.0); Mean Corpuscular Hemoglobin 28.5 pg (28.0-34.0); Mean Corpuscular Volume 87.1 fL (80-94); Mean Platelet Volume 10.5 fL (7.4-10.4); Monocytes # 0.6 10^3/uL (0.2-0.9); Monocytes % 7.6 %; Neutrophils % 63.9 %; Nucleated Red Blood Cells % 0 %; Platelet Count 194 10^3/cmm (130-400); Red Blood Count 6.13 10^6/uL (4.1-5.3); Red Cell Distribution Width 13.2 % (12.1-15.1); White Blood Count 8.5 10^3/uL (4.0-10.0)
--- NOTE | 2019-12-16 10:07 | ONC CON_ITS ---
Dr. Reid New Patient Note Patient: Pranav Johnson Unit #: [id number]: 1960 Dicatated By: Juan Reid M.D.Date of Visit: Dec 16, 2019 Onc MED New Patient/Consult Referring Physician: Dr. Hector Flores M.D. History of Present Illness: Mr. Pranav Johnson, is a 59-year-old gentleman with 40+ year history of heavy smoking. 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 As per patient, it was about couple of months ago he was told about 'high' red blood counts. But patient denies any headaches blurred vision double vision denies any shortness of breath denies any oxygen use, denies any chest pain or heaviness. Patient still smokes about a pack a day.No family history of blood disorder or polycythemia No fever chills, no wheezing or shortness of breath, no palpitation, no lower extremity edema, no abdominal fullness, no peripheral lymphadenopathy, no night sweats., No jaundice Past Medical History: Mr. Johnson's medical history consists of gastroesophageal reflux disease, hyperlipidemia, idiopathic chronic pancreatitis, post traumatic stress disorder, and type II diabetes. Past Surgical History: Mr. Johnson's surgical/procedural history consists of back surgery and cholecystectomy. Medications: [place]on 1 [place]apsule ([place] [address]45 Units) Capsule Delayed Release Particles Oral t.i.d., Lovastatin 1 Tablet (of 40 mg) Oral daily, Lyrica 1 Capsule (of 50 mg) Oral b.i.d., metFORMIN HCl 1 Tablet (of 500 mg) Oral b.i.d., Vitamin D2 1 Tablet (of 50 mcg ) Oral q 1 week Allergies: Nabumetone Social History: Mr. Johnson is . He is a daily smoker who smokes 1.0 pack/day. He has no history of drinking. He has indicated exposure to the following products: cigarettes. Family History: There is no documented family history. Review Of Symptoms: Constitutional - Appetite is diminished and weight has decreased. No fever, night sweats, or hot flashes. Energy level is fair, ENMT - Positive for sinus congestion/drainage. No mouth sores. No sore throat or difficulty swallowing, Hematologic/Lymphatic - No abnormal bruising or bleeding, Respiratory - No shortness of breath. No cough. No pleuritic pain or hemoptysis, Cardiovascular - No angina pain. No palpitations, Gastrointestinal - Positive for nausea, no vomiting. Positive for heartburn and acid reflux. No diarrhea. Positive for constipation. No blood in the stool or black stools, Genitourinary (M) - No dysuria or hematuria. Positive for urinary frequency. No urgency or incontinence, Musculoskeletal - No joint or bone pain, Neurologic - No headache, Positive for dizziness. No numbness or tingling. No other focal neurologic symptoms, Psychiatric - Positive for anxiety, depression and insomnia. Vital Signs: Performed on Dec 16, 2019 08:48: 0, 26.12, 2.10 sq.m, 72 in, 97 %, 76 /min, 18 /min, 135/78 mm(hg), 97.8 F (LOW), and 192.6 lbs (HIGH). Performance Status: 0 - Fully active, able to carry on all predisease activities without restrictions. (ECOG) Physical Examination: ENMT - No mouth sores, no thrush, no jaundice, Respiratory - Poor air entry with bilateral lateral mild wheezing, Cardiovascular - Regular rate and rhythm of heart, Abdomen - Soft, bowel sounds present, Extremities - No visible edema. Lab/Imaging: Most recent lab results are not available for this patient. Impression: Polycythemia, secondary to hypoxia due to chronic smoking, COPD, or sleep apnea, or primary due to myeloproliferative disorder like P vera or erythropoietin like secreting tumor.Labs checked on November 24, 2019 showed white blood count 8.7 hemoglobin 17.8 hematocrit 56.2 platelets 215,000 with a normal differential History of chronic smoking 40+ year, still smoking about a pack a day. COPD Chronic pancreatitis due to pancreas duct stone Diabetes mellitus Plan: Discussed with patient regarding his labs white blood count 8.5 hemoglobin 17.5 hematocrit 53.4 platelets 194,000 with a normal differential Clinically, patient doing well with no signs symptoms due to polycythemia, etiology remained unclear but could be secondary to chronic hypoxemia due to chronic smoking or underlying COPD but other conditions like primary/myeloproliferative disorder P vera cannot be ruled out. At this point will consider erythropoietin level, Johan 2 mutation testing, check pulse ox on exertion, andPatient was advised to maintain good hydration and take 1 aspirin a day then return to clinic in 2 weeks with CBC CMP and chest x-ray Patient was advised to quit smoking and was offered any assistance he may need. Signed By: Juan Reid M.D. <<Signature on File>>
[2019-12-24 22:18] LABS: CALR Exon 9 Mutation NOT DETECTED (NOT DETECTED); CSF3R Exon 14/17 Mutation NOT DETECTED (NOT DETECTED); JAK2 Exon 12 Mutation NOT DETECTED (NOT DETECTED); JAK2 V617 Block Specimen ID NG; JAK2 V617 Clinical Indication NG; JAK2 V617 Mutation NOT DETECTED (NOT DETECTED); JAK2 V617 Specimen Source NG; MPL Exon 12 Mutation NOT DETECTED (NOT DETECTED)
== END 2019-12-16 07:55 | disposition home or self-care (01) ==
LOC: ONCMED 07:57
PROVIDERS: PCP Family Medicine; Visit Provider Internal Medicine Hematology & Oncology
DX: D75.1 Secondary polycythemia (principal); F17.210 Nicotine dependence, cigarettes, uncomplicated; J44.9 Chronic obstructive pulmonary disease, unspecified; K86.89 Other specified diseases of pancreas; E11.9 Type 2 diabetes mellitus without complications; Z79.84 Long term (current) use of oral hypoglycemic drugs
CPT/HCPCS: 85025; 99203

== ENCOUNTER 2019-12-20 08:08 | Outpatient (CLI) | payer MEDICARE, SELFPAY ==
[2019-12-21 15:43] LABS: Erythropoietin 12.4 mIU/mL (2.6-18.5)
== END 2019-12-20 08:09 | disposition home or self-care (01) ==
LOC: ONCMED 08:10
PROVIDERS: PCP Family Medicine; Visit Provider Internal Medicine Hematology & Oncology
DX: D75.1 Secondary polycythemia (principal)
CPT/HCPCS: 36415; 82668

== ENCOUNTER 2019-12-31 06:15 | Outpatient (CLI) | payer MEDICARE, SELFPAY ==
[2019-12-31 08:45] LABS: Basophils # 0.1 10^3/uL (0.0-0.1); Basophils % 1.2 %; Eosinophils # 0.2 10^3/uL (0.0-0.8); Eosinophils % 2.4 %; Hematocrit 54.7 % (42.0-52.0); Hemoglobin 17.8 g/dL (11.7-16.6); Lymphocytes # 2.8 10^3/uL (0.8-4.8); Mean Corpuscular HGB Conc 32.5 g/dL (30.0-36.0); Mean Corpuscular Hemoglobin 28.8 pg (28.0-34.0); Mean Corpuscular Volume 88.4 fL (80-94); Mean Platelet Volume 10.5 fL (7.4-10.4); Monocytes # 0.9 10^3/uL (0.2-0.9); Monocytes % 8.7 %; Neutrophils # 5.91 10^3/uL (1.8-7.7); Neutrophils % 59.2 %; Nucleated Red Blood Cells % 0 %; Platelet Count 242 10^3/cmm (130-400); Red Blood Count 6.19 10^6/uL (4.1-5.3)
[2019-12-31 09:02] LABS: Alanine Aminotransferase 12 U/L (0-41); Albumin Level 4.3 g/dL (3.5-5.2); Alkaline Phosphatase 113 IU/L (40-130); Anion Gap 15.2 (5-19); Aspartate Amino Transferase 11 U/L (0-40); Blood Urea Nitrogen 16 mg/dL (6-20); Calcium 9.2 mg/dL (8.5-10.5); Carbon Dioxide 27 mmol/L (22-29); Chloride 104 mmol/L (98-107); Globulin 3.3 g/dL (1.3-4.6); Glomerular Filtration Rate 86.4 mL/min (90-130); Glucose 179 mg/dL (65-115); Osmolality Calculated 300 mOsm/kg (285-295); Potassium 4.2 mmol/L (3.5-5.1); Sodium 142 mmol/L (136-145); Total Bilirubin 0.3 mg/dL (0.15-1.2); Total Protein 7.6 g/dL (6.6-8.7)
--- NOTE | 2019-12-31 09:47 | ONC FU_ITS ---
Dr. Reid follow up note Patient: Pranav Johnson Unit #: [id number]: 1960 Dicatated By: Juan Reid M.D.Date of Visit:Dec 31, 2019 Onc Med Follow-up/Prog Note History of Present Illness: Mr. Pranav Johnson, is a 59-year-old gentleman with 40+ year history of heavy smoking. 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 As per patient, it was about couple of months ago he was told about 'high' red blood counts. But patient denies any headaches blurred vision double vision denies any shortness of breath denies any oxygen use, denies any chest pain or heaviness. Patient still smokes about a pack a day. Johan 2 mutation checked on December 16, 2019 showed no mutation detected No fever chills, no wheezing or shortness of breath, no palpitation, no lower extremity edema, no abdominal fullness, no peripheral lymphadenopathy, no night sweats., Came for follow-up, denies any specific complaints, no fever no chills no nausea vomiting, no headaches no chest pain no heaviness no palpitation , Still smoking about pack a day and maintaining good hydration and taking aspirin a day Medications: Creon 1 Capsule (of 11845-54552 Units) Capsule Delayed Release Particles Oral t.i.d., Lovastatin 1 Tablet (of 40 mg) Oral daily, Lyrica 1 Capsule (of 50 mg) Oral b.i.d., metFORMIN HCl 1 Tablet (of 500 mg) Oral b.i.d., Vitamin D2 1 Tablet (of 50 mcg ) Oral q 1 week Allergies: Nabumetone Review of Systems: Constitutional - Appetite is diminished and weight has decreased. No fever, night sweats, or hot flashes. Energy level is fair, ENMT - Positive for sinus congestion/drainage. No mouth sores. No sore throat or difficulty swallowing, Hematologic/Lymphatic - No abnormal bruising or bleeding, Respiratory - No shortness of breath. No cough. No pleuritic pain or hemoptysis, Cardiovascular - No angina pain. No palpitations, Gastrointestinal - Positive for nausea, no vomiting. Positive for heartburn and acid reflux. No diarrhea. Positive for constipation. No blood in the stool or black stools, Genitourinary (M) - No dysuria or hematuria. Positive for urinary frequency. No urgency or incontinence, Musculoskeletal - No joint or bone pain, Neurologic - No headache, Positive for dizziness. No numbness or tingling. No other focal neurologic symptoms, Psychiatric - Positive for anxiety, depression and insomnia. Vital Signs: Performed on Dec 31, 2019 09:08 Height - 72.00 in Weight - 193.2 lbs (HIGH) BSA - 2.10 sq.m BMI - 26.20 Temperature - 97.8 F (LOW) Pulse - 77 /min Respiration - 18 /min BP - 117/66 mm(hg) O2 Sat - 97 % Pain - 0 Performance Status: 0 - Fully active, able to carry on all predisease activities without restrictions. (ECOG) Physical Examination: ENMT - No mouth sores, no thrush, no jaundice, Respiratory - Lungs are clear to auscultation, Cardiovascular - Regular rate and rhythm of heart, Abdomen - Soft, bowel sounds present, Extremities - No visible edema. Lab/Imaging: Most recent lab results are not available for this patient. Impression: Polycythemia, secondary to hypoxia due to chronic smoking, COPD, or sleep apnea,Less likely primary due to myeloproliferative disorder like P vera or erythropoietin like secreting tumor As Johan 2 mutation checked December 16, 2019 showed no abnormal mutation Labs checked on November 24, 2019 showed white blood count 8.7 hemoglobin 17.8 hematocrit 56.2 platelets 215,000 with a normal differential History of chronic smoking 40+ year, still smoking about a pack a day. COPD Chronic pancreatitis due to pancreas duct stone Diabetes mellitus Plan: Discussed with patient regarding his labs white blood count 10 hemoglobin 17.8 hematocrit 54.7 platelets 242,000 CMP within normal limits and Johan 2 mutation results which showed no mutation detected Clinically, patient doing well with no new signs symptoms, maintaining good hydration, taking aspirin a day but still smoking about pack a day and his follow-up CBC shows persistent polycythemia which is secondary to chronic smoking causing hypoxemia which is causing secondary polycythemia, patient was advised to quit smoking and was offered any assistance he may need. Patient is not symptomatic but if his hematocrit continues to go up and beyond 55, then we may consider phlebotomy, patient was advised usually patient with secondary polycythemia when treated with phlebotomy symptoms he experienced symptoms like generalized weakness and fatigue. So it would be better for him to quit smoking, with that there is a good possibility is secondary polycythemia may resolve. Patient said he would quit smoking, Patient was advised to call in case he has any unusual headaches or heaviness in chest Return to clinic in 1 month with CBC. Signed By: Juan Reid M.D. <<Signature on File>>
== END 2019-12-31 06:16 | disposition home or self-care (01) ==
LOC: ONCMED 06:17
PROVIDERS: PCP Family Medicine; Visit Provider Internal Medicine Hematology & Oncology
DX: D75.1 Secondary polycythemia (principal); F17.210 Nicotine dependence, cigarettes, uncomplicated; J44.9 Chronic obstructive pulmonary disease, unspecified; K86.1 Other chronic pancreatitis; E11.9 Type 2 diabetes mellitus without complications; Z79.84 Long term (current) use of oral hypoglycemic drugs
CPT/HCPCS: 36415; 80053; 85025; G0463

== ENCOUNTER 2020-01-27 05:57 | Outpatient (CLI) | payer MEDICARE, SELFPAY ==
[2020-01-27 10:10] LABS: Basophils # 0.1 10^3/uL (0.0-0.1); Eosinophils # 0.3 10^3/uL (0.0-0.8); Eosinophils % 3.4 %; Hematocrit 50.9 % (42.0-52.0); Hemoglobin 16.4 g/dL (11.7-16.6); Lymphocytes # 1.8 10^3/uL (0.8-4.8); Lymphocytes % 20.4 %; Mean Corpuscular HGB Conc 32.2 g/dL (30.0-36.0); Mean Platelet Volume 10.3 fL (7.4-10.4); Monocytes # 0.6 10^3/uL (0.2-0.9); Monocytes % 7.3 %; Neutrophils # 5.88 10^3/uL (1.8-7.7); Neutrophils % 67.2 %; Nucleated Red Blood Cells % 0 %; Platelet Count 207 10^3/cmm (130-400); Red Blood Count 5.85 10^6/uL (4.1-5.3); Red Cell Distribution Width 12.5 % (12.1-15.1); White Blood Count 8.8 10^3/uL (4.0-10.0)
[2020-01-27 11:19] LABS: Alanine Aminotransferase 14 U/L (0-41); Albumin Level 4.3 g/dL (3.5-5.2); Alkaline Phosphatase 102 IU/L (40-130); Anion Gap 13.9 (5-19); Aspartate Amino Transferase 11 U/L (0-40); Blood Urea Nitrogen 12 mg/dL (6-20); Calcium 9.3 mg/dL (8.5-10.5); Carbon Dioxide 29 mmol/L (22-29); Chloride 101 mmol/L (98-107); Globulin 2.9 g/dL (1.3-4.6); Glomerular Filtration Rate 98.9 mL/min (90-130); Glucose 234 mg/dL (65-115); Osmolality Calculated 297 mOsm/kg (285-295); Potassium 3.9 mmol/L (3.5-5.1); Sodium 140 mmol/L (136-145); Total Bilirubin 0.4 mg/dL (0.15-1.2); Total Protein 7.2 g/dL (6.6-8.7)
== END 2020-01-27 05:58 | disposition home or self-care (01) ==
PROVIDERS: PCP Family Medicine; Visit Provider Internal Medicine Medical Oncology
DX: D75.1 Secondary polycythemia (principal)
CPT/HCPCS: 36415; 80053; 85025

== ENCOUNTER 2020-01-28 05:57 | Outpatient (CLI) | payer MEDICARE, SELFPAY ==
--- NOTE | 2020-01-28 10:26 | ONC FU_ITS ---
Dr. Reid follow up note Patient: Pranav Johnson Unit #: [id number]: 1960 Dicatated By: Juan Reid M.D.Date of Visit:Jan 28, 2020 Onc Med Follow-up/Prog Note History of Present Illness: Mr. Pranav Johnson, is a 59-year-old gentleman with 40+ year history of heavy smoking. 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 As per patient, it was about couple of months ago he was told about 'high' red blood counts. But patient denies any headaches blurred vision double vision denies any shortness of breath denies any oxygen use, denies any chest pain or heaviness. Patient still smokes about a pack a day. Johan 2 mutation checked on December 16, 2019 showed no mutation detected No fever chills, no wheezing or shortness of breath, no palpitation, no lower extremity edema, no abdominal fullness, no peripheral lymphadenopathy, no night sweats., Came for follow-up, denies any specific complaints, no headaches no shortness of breath no chest pain, no fever chills, no nausea or vomiting, no diarrhea constipation. Patient said he has cut down his smoking significantly now smoke about half a pack or less a day Medications: Creon 1 Capsule ([place] 77406-57445 Units) Capsule Delayed Release Particles Oral t.i.d., Lovastatin 1 Tablet (of 40 mg) Oral daily, Lyrica 1 Capsule (of 50 mg) Oral b.i.d., metFORMIN HCl 1 Tablet (of 500 mg) Oral b.i.d., Vitamin D2 1 Tablet (of 50 mcg ) Oral q 1 week Allergies: Nabumetone Review of Systems: Review of Systems is not available for this patient. Vital Signs: Performed on Jan 28, 2020 09:05 Height - 72.00 in Weight - 188.2 lbs (LOW) BSA - 2.08 sq.m BMI - 25.52 Temperature - 98.0 F (LOW) Pulse - 75 /min Respiration - 18 /min BP - 122/78 mm(hg) O2 Sat - 96 % Pain - 0 Performance Status: 0 - Fully active, able to carry on all predisease activities without restrictions. (ECOG) Physical Examination: ENMT - No mouth sores, no thrush, no jaundice, Respiratory - Lungs are clear to auscultation, Cardiovascular - Regular rate and rhythm of heart, Abdomen - Soft, bowel sounds present, Extremities - No visible edema or rash. Lab/Imaging: Test performed on Dec 31, 2019 08:33 Sodium 142 mmol/L Potassium 4.2 mmol/L Chloride 104 mmol/L CO2 27 mmol/L Anion Gap 15.2 BUN 16 mg/dL Creatinine 0.9 mg/dL Cr Clearance (Est) 109.54 mL/min eGFR 86.4 mL/min Glucose 179 mg/dL Osmolality - Calculated 300 mOsm/kg Calcium 9.2 mg/dL Protein, Total 7.6 g/dL Albumin 4.3 g/dL Globulin 3.3 g/dL Bilirubin, Total 0.3 mg/dL ALT (SGPT) 12 U/L AST (SGOT) 11 U/L Alkaline Phosphatase 113 IU/L WBC 10.0 10 3/uL RBC 6.19 10 6/uL HGB 17.8 g/dL HCT 54.7 % MCV 88.4 fL MCH 28.8 pg MCHC 32.5 g/dL RDW 13.0 % Platelet Count 242 10 3/cmm MPV 10.5 fL Neutrophils 5.91 10 3/uL Lymphocytes 2.8 10 3/uL Monocytes 0.9 10 3/uL Eosinophils 0.2 10 3/uL Basophils 0.1 10 3/uL Neutrophil % 59.2 % Lymphocyte % 28.0 % Monocyte % 8.7 % Eosinophil % 2.4 % Basophils % 1.2 % NRBC % 0 % Test performed on Dec 20, 2019 08:25 Erythropoietin 12.4 mIU/mL Impression: Polycythemia, secondary to hypoxia due to chronic smoking, COPD, or sleep apnea,Less likely primary due to myeloproliferative disorder like P vera or erythropoietin like secreting tumor As Johan 2 mutation checked December 16, 2019 showed no abnormal mutation Labs checked on November 24, 2019 showed white blood count 8.7 hemoglobin 17.8 hematocrit 56.2 platelets 215,000 with a normal differential History of chronic smoking 40+ year, still smoking about a pack a day. COPD Chronic pancreatitis due to pancreas duct stone Diabetes mellitus Plan: Discussed with patient regarding his labs white blood count 8.8 hemoglobin 16.4 hematocrit 50.9 compared to 54.7 on December 31, 2019 platelets 207,000 CMP within normal limits except glucose 224 Clinically, patient doing well with no new signs symptoms and his follow-up CBC shows further improvement in his hematocrit and patient is trying to cut down his smoking and he was encouraged and was offered any assistance he may need. We will continue to monitor and he will return to clinic in 2 months with CBC and patient was advised to maintain hydration and quit smoking. Signed By: Juan Reid M.D. <<Signature on File>>
== END 2020-01-28 05:58 | disposition home or self-care (01) ==
LOC: ONCMED 05:59
PROVIDERS: PCP Family Medicine; Visit Provider Internal Medicine Hematology & Oncology
DX: D75.1 Secondary polycythemia (principal); R09.02 Hypoxemia; F17.210 Nicotine dependence, cigarettes, uncomplicated; J44.9 Chronic obstructive pulmonary disease, unspecified; K86.1 Other chronic pancreatitis; K86.89 Other specified diseases of pancreas; E11.9 Type 2 diabetes mellitus without complications
CPT/HCPCS: G0463

== ENCOUNTER 2020-02-29 06:49 | Emergency (ER) | payer MEDICARE, SELFPAY ==
[2020-02-29] VITALS (7 sets, daily range): BP systolic 112–122; BP diastolic 59–74; PULSE 52–76; RESP 16–26; TEMP 36.2; O2SAT 98–100; BMI 26.7
--- NOTE | 2020-02-29 07:13 | CT_ITS ---
WS: [id number] CT ABDOMEN AND PELVIS WITH CONTRAST HISTORY: Right-sided abdominal pain. History of pancreatitis. TECHNIQUE: Imaging performed of the abdomen and pelvis with IV contrast. Single phase imaging of the abdomen. Coronal and sagittal reformats are submitted. All CT scans at [facility] use at least one of these dose optimization techniques: automated exposure control; mA and/or kV adjustment per patient size (includes targeted exams where dose is matched to clinical indication); or iterativ e reconstruction. IV CONTRAST: Omnipaque 300; 95 mL IV. Oral contrast: No DLP: 1033.06 mGy.cm COMPARISON: 10/14/2019 Lower thorax: Lung bases are clear. Heart is normal size. Small hiatal hernia. Liver/biliary system: Mildly prominent liver. New marked dilatation of the intrahepatic ducts since t he prior study. No hepatic mass is identified. Common bile duct measures 11 mm. Gallbladder: Status post cholecystectomy. Pancreas: There are numerous calcifications along the pancreatic duct. Previously seen pancreatic anai t stent has been removed. Pancreatic duct measures 5.7 mm. There is an additional cystic mass in the anterior tail of the pancreas measuring 12 mm which is new. Pancreatic head is mildly enlarged and ed ematous with no mass. There are numerous small calcifications in the pancreatic head. There is inflam mation and edema near the ampulla of Vater. Edema extends into the duodenum. Spleen: Normal. Adrenal glands: Normal. Right kidney: Normal. Left kidney: Nonobstructing 3 mm calcification mid kidney. Aorta: Mild atherosclerosis with no aneurysm. Lymphadenopathy: There are several small lymph nodes surrounding the pancreas especially the pancreat ic head measuring up to 9 mm. There are a few small shoddy retroperitoneal lymph nodes. Free fluid: None. GI tract: Constipation. Normal appendix. Small bowel is mildly distended with fluid. Abdominal wall: Unremarkable abdominal wall. No hernia. Pelvis: Well-distended urinary bladder. Bones: Lumbar spondylitic changes. CT/CT abdomen pelvis w con* [id number] IMPRESSION: 1. Development of significant intrahepatic and extrahepatic bile duct dilatati on since 10/14/2019. 2. Pancreatic duct stent has been removed and there is new pancreatic duct dil atation with innumerable calcifications along the duct with inflammatory change s and enlargement of the pancreatic head. Inflammatory changes extend to involv e the duodenum and ampulla of Vater. No definite calcification in the distal CB D. Findings consistent with acute pancreatitis and obstruction of the distal co mmon bile duct. 3. New cyst in the pancreatic tail measuring 12 mm. May be related to a small pseudocyst or branch duct IPMN. 4. Prior cholecystectomy. 5. Mild fluid distention of small bowel may be related to the inflammatory pro cess in the mid abdomen. 6. Numerous minimally prominent lymph nodes surrounding the pancreas and duode num. Notified Antonio Martin DO at 02/29/2020 8:06 AM. Unable to contact Dr. Dallin lazo at this time.
--- NOTE | 2020-02-29 07:13 | ED_ITS ---
HPI - Abdominal Pain General: Chief Complaint: Abdominal Pain Stated Complaint: ABD PAIN Time Seen by Provider: 02/29/20 07:03 History of Present Illness: HPI narrative: 59-year-old male presents with abdominal pain. 2 weeks ago was hospitalized at [facility] for pancreatitis. 2 days ago began having abdominal pain similar to what he had before. He states he is not had a bowel movement for the last 4 to 5 days. Patient has severe cramping abdominal pain radiating into his back. He denies any dysuria urgency or frequency. He denies any melena hematemesis coffee- ground emesis. Patient states he does not drink. MD elicited complaint: abdominal pain Pertinent past history: constipation and other (Pancreatitis) Onset (ago): day(s) Pain Consistency: constant Location: Epigastric and LUQ Severity: severe Quality: cramping Radiation: back Exacerbating factors: eating and vomiting Associated Symptoms: Reports anorexia, bloating, change in bowel habits, constipation, GI cramping, dyspepsia and vomiting; Denies change in stool character, chills, coffee ground emesis, diarrhea, dysuria, excessive flatus, fever(s), heartburn, hematochezia, hematuria, hematemesis, fecal incontinence, loose stools, melena, nausea, poor appetite and syncope Review of Systems Const: Denies: fever(s) ENMT: Denies: throat pain, ear or mastoid pain, nasal discharge or nasal congestion Card: Denies: syncope Resp: Denies: dyspnea, productive cough or non-productive cough GI: Reports: vomiting, constipation, bloating, GI cramping and change in bowel habits; Denies: nausea, hematemesis, coffee ground emesis, heartburn, diarrhea, excessive flatus, fecal incontinence, change in stool character, hematochezia or melena : Denies: dysuria or hematuria Skin/Breast: Denies: rash or pruritus PFSH ED PFSH: Medical History (Updated 02/29/20 @ 09:04 by Antonio Martin DO) Acute pancreatitis Diabetes GERD (gastroesophageal reflux disease) Hyperlipidemia Idiopathic chronic pancreatitis Insomnia Presence of pancreatic duct stent PTSD (post-traumatic stress disorder) Surgical History History of back surgery S/P cholecystectomy Social History (Reviewed 02/29/20 @ 07:36 by JEFF Jaime Smoking and tobacco status: current every day smoker cigarettes Packs smoked per day: 1 Alcohol intake: never Physical Exam Const: COMMON NORMALS: no acute distress GENERAL APPEARANCE: cooperative and comfortable ORIENTATION/CONSCIOUSNESS: Yes awake, Yes oriented to person, Yes oriented to place and Yes oriented to time HENMT: COMMON NORMALS: normocephalic, atraumatic and hearing grossly normal bilaterally HEAD & SCALP: normocephalic and atraumatic Neck/C-Spine: COMMON NORMALS: no JVD Resp: COMMON NORMALS: normal respiratory effort, No retractions, No use of accessory muscles and clear to auscultation bilaterally AUSCULTATION: clear to auscultation bilaterally Cardio: COMMON NORMALS: no JVD, regular rate, regular rhythm and No murmurs present (Cardio) RATE: regular rate RHYTHM: regular rhythm GI: COMMON NORMALS: Soft to palpation and No hepatosplenomegaly present AUSCULTATION: Yes normoactive bowel sounds PALPATION: Yes Soft to palpation, Yes Tenderness to palpation present (GI) Details: LUQ, No Guarding due to palpation present (GI) and Yes No hepatosplenomegaly present Extremity: COMMON NORMALS: normal to inspection, capillary refill normal, no clubbing, cyanosis or edema, no calf tenderness and no pedal edema Neuro: SENSORIUM/ORIENTATION: Yes oriented to person, Yes oriented to place and Yes oriented to time Skin: COMMON NORMALS: no rashes or lesions noted GENERAL SKIN EXAM: no rashes or lesions noted Course Vital Signs: Vital signs: Vital Signs Temperature 97.2 F L 02/29/20 06:57 Pulse Rate 66 02/29/20 11:10 Respiratory Rate 16 02/29/20 11:04 Blood Pressure 112/72 02/29/20 10:31 Pulse Oximetry 98 02/29/20 11:10 MDM - Abdominal Pain MDM Narrative: Medical decision making narrative: Patient has acute pancreatitis with dilation the common bile duct swelling at the ampulla Vater. He may need stents replaced. He had them previously but they are removed at his last hospitalization evidently. Discussed with the patient and then discussed with the GI specialist that [facility] as well as with the hospitalist there. We have no beds available in our facility at this time when her boarding 7 patients in the emergency room additionally we do not have GI services here and he likely will need an ERCP at some point. Due to these things will transfer him to [place] where he has been seen before. Lab Data: Labs: Lab Results 02/29/20 02/29/20 02/29/20 Range/Units 07:25 07:25 07:28 WBC 12.3 H (4.0-10.0) 10^3/ uL RBC 5.63 H (4.1-5.3) 10^6/u L Hgb 15.5 (11.7-16.6) g/dL Hct 49.1 (42.0-52.0) % MCV 87.2 (80-94) fL MCH 27.5 L (28.0-34.0) pg MCHC 31.6 (30.0-36.0) g/dL RDW 13.5 (12.1-15.1) % Plt Count 356 (130-400) 10^3/c mm MPV 10.2 (7.4-10.4) fL Neut % (Auto) 80.3 % Lymph % (Auto) 9.1 % [place] % (Auto) 8.1 % Eos % (Auto) 1.1 % Baso % (Auto) 0.7 % Neut # (Auto) 9.86 H (1.8-7.7) 10^3/u L Lymph # (Auto) 1.1 (0.8-4.8) 10^3/u L [place] # (Auto) 1.0 H (0.2-0.9) 10^3/u L Eos # (Auto) 0.1 (0.0-0.8) 10^3/u L Baso # (Auto) 0.1 (0.0-0.1) 10^3/u L Nucleated RBC % (a uto) 0 % Nucleated RBCs # 0.0 /100WBC Sodium 132 L (136-145) mmol/L Potassium 4.6 (3.5-5.1) mmol/L Chloride 94 L (98-107) mmol/L Carbon Dioxide 26 (22-29) mmol/L Anion Gap 16.6 (5-19) BUN 11 (6-20) mg/dL Creatinine 0.9 (0.7-1.2) mg/dL GFR Calculation 86.4 L (90-130) mL/min Glucose 316 H (65-115) mg/dL Calculated Osmolal ity 285 (285-295) mOsm/k g Calcium 9.8 (8.5-10.5) mg/dL Total Bilirubin 1.3 H (0.15-1.2) mg/dL AST 158 H (0-40) U/L ALT 345 H (0-41) U/L Alkaline Phosphata se 758 H (40-130) IU/L Total Protein 8.4 (6.6-8.7) g/dL Albumin 4.5 (3.5-5.2) g/dL Globulin 3.9 (1.3-4.6) g/dL Lipase 1018 H (13-60) U/L Urine Color Yellow (Yellow) Urine Appearance Clear (CLEAR) Urine pH 5.0 (5-7) Ur Specific Gravit y 1.025 (1.005-1.030) Urine Protein Neg (Negative) Urine Glucose (UA) 4+ H (Normal) Urine Ketones Negative (Negative) Urine Blood Neg (Negative) Urine Nitrate Negative (Negative) Urine Bilirubin 1+ H (Negative) Urine Urobilinogen 1 H (Negative) mg/dL Ur Leukocyte Rachel ase Negative (Negative) Discharge Plan Discharge Patient Disposition: Xfer Short-Term Hosp Clinical Impression: Pancreatitis, Common bile duct dilatation, Cyst of pancreas Condition: Stable Referrals: Hector Flores DO [Primary Care Provider] - Coding Level of Care Code ED [employer] for g Fwd Exam Comprehensive
--- NOTE | 2020-02-29 07:14 | XR_ITS ---
WS: [id number] PORTABLE CHEST HISTORY: dyspnea/cough COMPARISON: 10/14/2019 Lungs are clear and well expanded. No pleural effusion or pneumothorax. Cardiac size: Normal. Mediastinum/Aorta: Normal mediastinum. No osseous abnormality seen. XR/XR chest 1V portable [id number] IMPRESSION: Unremarkable portable chest.
[2020-02-29] MEDS: sodium chloride 0.9% 1,000 ML 999 ML IV (07:31)
[2020-02-29] MEDS: morphine 4 mg/mL SDV 1 mL IVP ×3 (07:35→11:04)
[2020-02-29] MEDS: ondansetron 2 mg/ML SDV 2 mL 4 MG IVP ×2 (07:35→11:02)
[2020-02-29 07:47] LABS: Add Urine Microscopic? NO
[2020-02-29 07:48] LABS: Basophils # 0.1 10^3/uL (0.0-0.1); Basophils % 0.7 %; Eosinophils # 0.1 10^3/uL (0.0-0.8); Eosinophils % 1.1 %; Hematocrit 49.1 % (42.0-52.0); Hemoglobin 15.5 g/dL (11.7-16.6); Lymphocytes # 1.1 10^3/uL (0.8-4.8); Lymphocytes % 9.1 %; Mean Corpuscular HGB Conc 31.6 g/dL (30.0-36.0); Mean Corpuscular Hemoglobin 27.5 pg (28.0-34.0); Mean Corpuscular Volume 87.2 fL (80-94); Mean Platelet Volume 10.2 fL (7.4-10.4); Monocytes % 8.1 %; Neutrophils # 9.86 10^3/uL (1.8-7.7); Neutrophils % 80.3 %; Nucleated Red Blood Cells % 0 %; Platelet Count 356 10^3/cmm (130-400); Red Blood Count 5.63 10^6/uL (4.1-5.3); Red Cell Distribution Width 13.5 % (12.1-15.1); White Blood Count 12.3 10^3/uL (4.0-10.0)
[2020-02-29] MEDS: iohexol 300 mg/mL 100 mL Btl IV (07:57)
[2020-02-29 08:07] LABS: Alanine Aminotransferase 345 U/L (0-41); Albumin Level 4.5 g/dL (3.5-5.2); Alkaline Phosphatase 758 IU/L (40-130); Anion Gap 16.6 (5-19); Aspartate Amino Transferase 158 U/L (0-40); Blood Urea Nitrogen 11 mg/dL (6-20); Calcium 9.8 mg/dL (8.5-10.5); Carbon Dioxide 26 mmol/L (22-29); Chloride 94 mmol/L (98-107); Globulin 3.9 g/dL (1.3-4.6); Glomerular Filtration Rate 86.4 mL/min (90-130); Glucose 316 mg/dL (65-115); Osmolality Calculated 285 mOsm/kg (285-295); Potassium 4.6 mmol/L (3.5-5.1); Sodium 132 mmol/L (136-145); Total Bilirubin 1.3 mg/dL (0.15-1.2); Total Protein 8.4 g/dL (6.6-8.7)
[2020-02-29 08:13] LABS: Lipase 1018 U/L (13-60)
[2020-02-29 08:16] LABS: Bilirubin Urine 1+ (Negative); Blood Urine Neg (Negative); Glucose Urine UA 4+ (Normal); Ketones Urine Negative (Negative); Leukocyte Esterase Urine Negative (Negative); Nitrate Urine Negative (Negative); Protein Urine Neg (Negative); Specific Gravity, Urine 1.025 (1.005-1.030); Urine Appearance Clear (CLEAR); Urine Color Yellow (Yellow); Urobilinogen Urine 1 mg/dL (Negative)
== END 2020-02-29 11:11 | disposition short-term general hospital (02) ==
PROVIDERS: Emergency Provider Family Medicine; PCP Family Medicine
DX: K85.90 Acute pancreatitis without necrosis or infection, unspecified (principal); K83.8 Other specified diseases of biliary tract; K86.2 Cyst of pancreas; E11.9 Type 2 diabetes mellitus without complications; E78.5 Hyperlipidemia, unspecified; F17.210 Nicotine dependence, cigarettes, uncomplicated
CPT/HCPCS: 12345; 71045; 74177; 80053; 81003; 83690; 85025; 96361; 96374; 96375; 96376; 99283; 99285; J2270; J2405; J7030; Q9967

== ENCOUNTER → 2020-04-13 09:47 | Outpatient (BNVA) | payer MEDICARE, SELFPAY | PROVIDERS: PCP Family Medicine; Visit Provider Family Medicine | DX: E11.9 Type 2 diabetes mellitus without complications (principal); K86.1 Other chronic pancreatitis; Z90.49 Acquired absence of other specified parts of digestive tract; D75.1 Secondary polycythemia; E55.9 Vitamin D deficiency, unspecified | CPT/HCPCS: 36415; 80053; 80061; 81000; 82306; 83036; 83690; 85025 ==

== ENCOUNTER 2020-04-19 20:24 | Emergency (ER) | payer MEDICARE, SELFPAY ==
[2020-04-19] VITALS (8 sets, daily range): BP systolic 94–171; BP diastolic 54–78; PULSE 60–79; RESP 16–20; TEMP 36.7; O2SAT 94–99; BMI 23.0
[2020-04-19] MEDS: ondansetron 2 mg/ML SDV 2 mL 4 MG IVP (20:44)
[2020-04-19] MEDS: sodium chloride 0.9% 1,000 ML 999 ML IV ×2 (20:45→23:08)
[2020-04-19 20:52] LABS: Basophils # 0.1 10^3/uL (0.0-0.1); Basophils % 0.8 %; Eosinophils # 0.3 10^3/uL (0.0-0.8); Eosinophils % 3.1 %; Hematocrit 52.1 % (42.0-52.0); Lymphocytes # 2.5 10^3/uL (0.8-4.8); Lymphocytes % 23.1 %; Mean Corpuscular HGB Conc 32.6 g/dL (30.0-36.0); Mean Corpuscular Hemoglobin 28.4 pg (28.0-34.0); Mean Corpuscular Volume 87.1 fL (80-94); Mean Platelet Volume 10.5 fL (7.4-10.4); Monocytes # 0.8 10^3/uL (0.2-0.9); Monocytes % 7.3 %; Neutrophils # 6.97 10^3/uL (1.8-7.7); Nucleated Red Blood Cells % 0 %; Platelet Count 259 10^3/cmm (130-400); Red Blood Count 5.98 10^6/uL (4.1-5.3); Red Cell Distribution Width 13.9 % (12.1-15.1); White Blood Count 10.7 10^3/uL (4.0-10.0)
[2020-04-19 21:09] LABS: Alanine Aminotransferase 14 U/L (0-41); Albumin Level 4.6 g/dL (3.5-5.2); Alkaline Phosphatase 124 IU/L (40-130); Anion Gap 12.4 (5-19); Aspartate Amino Transferase 11 U/L (0-40); Blood Urea Nitrogen 14 mg/dL (8-23); C Reactive Protein 3.1 mg/L (0.0-4.9); Calcium 9.3 mg/dL (8.5-10.5); Carbon Dioxide 31 mmol/L (22-29); Chloride 96 mmol/L (98-107); Globulin 3.5 g/dL (1.3-4.6); Glomerular Filtration Rate 137.4 mL/min (90-130); Glucose 194 mg/dL (65-115); Magnesium 2.1 mg/dL (1.7-2.3); Osmolality Calculated 288 mOsm/kg (285-295); Potassium 3.4 mmol/L (3.5-5.1); Sodium 136 mmol/L (136-145); Total Bilirubin 0.3 mg/dL (0.15-1.2); Total Protein 8.1 g/dL (6.6-8.7)
[2020-04-19 21:20] LABS: INR 0.95 (0.8-1.2)
[2020-04-19 21:21] LABS: Lipase 478 U/L (13-60)
--- NOTE | 2020-04-19 21:39 | CTR_ITS ---
PROCEDURE INFORMATION: Exam: CT Abdomen And Pelvis With Contrast Exam date and time: 04/19/2020 9:45 PM Age: 60 years old Clinical indication: Localized; Prior surgery; Surgery type: Gb, back, pancreatic duct stent; Patient HX: Upper abdominal pain x 3 days; Additional info: Pancreatitis, recurrent, S/P sent TECHNIQUE: Imaging protocol: Computed tomography of the abdomen and pelvis with contrast. Radiation optimization: All CT scans at this facility use at least one of these dose optimization techniques: automated exposure control; mA and/or kV adjustment per patient size (includes targeted exams where dose is matched to clinical indication); or iterative reconstruction. Contrast material: OMNI 300; Contrast volume: 95 ml; Contrast route: INTRAVENOUS (IV); COMPARISON: CT abdomen pelvis w con* [id number] 02/29/2020 7:40 AM RADIATION DOSE METRICS: Total DLP (mGy-cm): 552.42 FINDINGS: Liver: Normal. No mass. Gallbladder and bile ducts: There is very mild diffuse dilation of the intrahepatic bile ducts system which is decreased from prior after common bile duct stenting. The common bile duct stent position is unremarkable. The common bile duct diameter is normal around the stent. Pancreas: Atrophic pancreatic parenchyma with calcifications of the pancreatic parenchyma. Interval stenting of the main pancreatic duct with unremarkable position. The pancreatic duct diameter is normal. Small cystic lesion in the pancreatic tail is stable from prior measuring 17 mm transverse diameter. No acute peripancreatic inflammation. No focal peripancreatic fluid collection. Spleen: Normal. No splenomegaly. Adrenal glands: Normal. No mass. Kidneys and ureters: Unremarkable. No hydronephrosis. Punctate nonobstructing interpolar left kidney stone. Tiny subcentimeter cortical cystic lesions too small to characterize bilaterally. Stomach and bowel: No inflammatory thickening of the gastric wall or the duodenal wall. Negative for pneumatosis intestinalis. Negative for bowel obstruction or perforation. Moderate fecal volume. Appendix: No evidence of appendicitis. Intraperitoneal space: Negative for pneumoperitoneum. Vasculature: Mild atherosclerosis. No vascular occlusion. No active bleeding. Lymph nodes: Unremarkable. No enlarged lymph nodes. Urinary bladder: Unremarkable as visualized. Reproductive: Unremarkable as visualized. Bones/joints: No aggressive bone lesions. No acute fractures of lumbar spine or pelvis. Hip joint alignments are intact. Lumbar spinal alignment is unremarkable. Soft tissues: Lumbar paraspinal muscles are symmetric. Ventral abdominal wall intact. CT/CT abdomen pelvis w con* [id number] IMPRESSION: 1. No acute abnormalities in the abdomen or pelvis. 2. Sequela of chronic calcific pancreatitis noted. 3. Status post stenting of the common bile duct and the main pancreatic duct without complication. 4. Stable peripancreatic cystic lesion near the pancreatic tail. Radiation Dose CTDIVOL = (mGy): DLP = 552.42 (mGy-cm)
[2020-04-19] MEDS: morphine 4 mg/mL SDV 1 mL 8 MG IVP (21:58)
[2020-04-19 22:10] LABS: Add Urine Microscopic? YES; Bilirubin Urine 1+ (Negative); Blood Urine Neg (Negative); Glucose Urine UA 4+ (Normal); Ketones Urine 1+ (Negative); Leukocyte Esterase Urine Negative (Negative); Nitrate Urine Negative (Negative); Protein Urine Neg (Negative); Urine Appearance SL Hazy (CLEAR); Urine Color Yellow (Yellow); Urobilinogen Urine 1 mg/dL (Negative); pH Urine 5 (5-7)
[2020-04-19 22:12] LABS: Add Urine Culture? No; Bacteria Urine TRACE /hpf; Calcium Oxalate Crystals Urine 25-40 /hpf; Mucus Urine 1+ /hpf; RBC Urine RARE /hpf (0-2); Squamous Epithelial Cell Urine RARE /hpf (0-5); WBC Urine RARE /hpf (0-5)
[2020-04-19] MEDS: iohexol 300 mg/mL 100 mL Btl IV (22:21)
--- NOTE | 2020-04-19 23:15 | ED_ITS ---
HPI - Abdominal Pain General: Chief Complaint: Abdominal Pain Stated Complaint: Pancreas swollen/painful Time Seen by Provider: 04/19/20 20:32 Source: patient and family Mode of arrival: ambulatory Limitations: no limitations History of Present Illness: HPI narrative: 60-year-old male with a history of recurrent pancreatitis presenting with increased abdominal pain and nausea over the past 3 days. It feels similar in nature to previous episodes of acute pancreatitis. He had a new CBD stent placed 2 months ago at [facility]. Was doing well up until about 3 days ago-eating mainly soups, bread, other light meals. He did,however, consume quite a bit of potato salad and other high-fat foods on Super Bowl Friday, 4 days ago, the day before his symptoms started. No fever. Decreased appetite and nausea, but no vomiting. No diarrhea. He ran out of the pancreatic enzymes he had been prescribed previously, and has not been able to get a refill. He also has pain in his esophagus and stomach when he swallows or tries to drink water. He does have a history of peptic ulcer disease. Pertinent past history: other (Pancreatitis) Onset (ago): day(s) Pain Consistency: constant and colicky Location: Diffuse, Periumbilical and LLQ Severity: similar to previous episodes Quality: cramping and stabbing Radiation: none Migration to: no migration Exacerbating factors: eating Associated Symptoms: Reports anorexia, bloating, dyspepsia, heartburn and nausea; Denies chills, coffee ground emesis, dysuria, fever(s), hematemesis and vomiting Review of Systems General: Reports: 10 or more systems reviewed and unremarkable except in HPI and below Const: Reports: change in appetite, fatigue and malaise; Denies: fever(s), chills, body aches or diaphoresis Eyes: Denies: change in vision, blurry vision or blind spots ENMT: Denies: throat pain, odynophagia, mouth pain or swelling of lips/tongue Card: Denies: chest pain, palpitations or irregular heart rhythm Resp: Denies: dyspnea, wheezing or chest congestion GI: Reports: abdominal pain, nausea, heartburn and bloating; Denies: vomiting, hematemesis, coffee ground emesis or dysphagia : Denies: flank pain, difficulty urinating, dysuria or urinary hesitancy Musc: Denies: back pain or extremity swelling Skin/Breast: Denies: rash, pruritus, erythema or changes in skin color Neuro: Denies: headache(s), numbness in extremities, weakness in extremities or lack of coordination PFSH ED PFSH: Medical History (Updated 04/28/20 @ 00:00 by ) Acute pancreatitis Diabetes GERD (gastroesophageal reflux disease) Hyperlipidemia Idiopathic chronic pancreatitis Insomnia Presence of pancreatic duct stent PTSD (post-traumatic stress disorder) Surgical History History of back surgery S/P cholecystectomy Social History Smoking and tobacco status: current every day smoker cigarettes Packs smoked per day: 1 Alcohol intake: never Physical Exam Const: COMMON NORMALS: average body habitus and patient oriented x3 GENERAL APPEARANCE: in distress, anxious and ill appearing HENMT: COMMON NORMALS: normocephalic and atraumatic HEAD & SCALP: normocephalic and atraumatic FACE & SINUS: normal facial exam and face symmetric Eye: COMMON NORMALS: Equal, round and reactive pupils present, EOMs intact bilaterally and no scleral icterus Resp: COMMON NORMALS: normal respiratory effort EFFORT & INSPECTION: Yes able to speak in complete sentences, No tachypneic and No respiratory distress Cardio: COMMON NORMALS: regular rate, regular rhythm, S1 normal heart sound present and S2 normal heart sound present RATE: regular rate RHYTHM: regular rhythm HEART SOUNDS: S1 normal heart sound present and S2 normal heart sound present GI: COMMON NORMALS: Soft to palpation INSPECTION: No abdominal wall ecchymosis, No Abdominal wall edema, No Anasarca and No abdominal distension PALPATION: Yes Soft to palpation, Yes Tenderness to palpation present (GI) (Epigastric), Yes Guarding due to palpation present (GI), No Hernia present, No Palpable mass present, No Pulsatile mass present and No Rebound tenderness present : COMMON NORMALS: Yes no CVA tenderness BLADDER/KIDNEY EXAM: Yes no CVA tenderness Back/Pelvis: COMMON NORMALS: no CVA tenderness and thoracic and lumbar spine normal to inspection Neuro: KYAW COMA SCALE: document GCS findings COMMON NORMALS: patient oriented x3 and no focal motor deficits Skin: COMMON NORMALS: no rashes or lesions noted, no wounds and no jaundice GENERAL SKIN EXAM: no rashes or lesions noted Course Vital Signs: Vital signs: Vital Signs Temperature 98.1 F 04/19/20 20:30 Pulse Rate 58 L 04/20/20 01:06 Respiratory Rate 17 04/20/20 01:06 Blood Pressure 93/66 04/20/20 01:06 Pulse Oximetry 98 04/20/20 01:06 MDM - Abdominal Pain MDM Narrative: Medical decision making narrative: 60-year-old male with chronic pancreatitis presenting with recurrent epigastric pain. Initially appeared ill on exam, complaining of nausea and vomiting. His vital signs were stable however. He appeared volume depleted, treated with IV fluid, antiemetics, analgesia Lipase 478. She CT shows changes of chronic pancreatitis, no new obstruction or acute inflammatory changes. Stents of the common bile duct and main pancreatic duct seem to be functioning. He was feeling much better after medication, was able to tolerate clears. Wanted to go home. Instructed him to drink only clears until his pain had was completely gone. He does not drink alcohol. Also instructed him to avoid all NSAIDs. Zofran p.o. prescription Prompt follow-up with his PCP in the next 2 to 3 days for reevaluation. Instructed to return immediately to the ER if he develop fever, worsening pain, or if he was unable to keep down liquids. Differential Diagnosis: Differential diagnosis abdominal pain: Likely abdominal pain, gastroenteritis, pancreatitis and small bowel obstruction Medical Records: Attestation: I reviewed the patient's medical records. Lab Data: Attestation: I reviewed the patient's lab results. Labs: Lab Results 04/19/20 04/19/20 04/19/20 Range/Units 20:44 20:44 20:44 WBC 10.7 H (4.0-10.0) 10^3/ uL RBC 5.98 H (4.1-5.3) 10^6/u L Hgb 17.0 H (11.7-16.6) g/dL Hct 52.1 H (42.0-52.0) % MCV 87.1 (80-94) fL MCH 28.4 (28.0-34.0) pg MCHC 32.6 (30.0-36.0) g/dL RDW 13.9 (12.1-15.1) % Plt Count 259 (130-400) 10^3/c mm MPV 10.5 H (7.4-10.4) fL Neut % (Auto) 65.0 % Lymph % (Auto) 23.1 % [place] % (Auto) 7.3 % Eos % (Auto) 3.1 % Baso % (Auto) 0.8 % Neut # (Auto) 6.97 (1.8-7.7) 10^3/u L Lymph # (Auto) 2.5 (0.8-4.8) 10^3/u L [place] # (Auto) 0.8 (0.2-0.9) 10^3/u L Eos # (Auto) 0.3 (0.0-0.8) 10^3/u L Baso # (Auto) 0.1 (0.0-0.1) 10^3/u L Nucleated RBC % (a uto) 0 % Nucleated RBCs # 0.0 /100WBC PT 13.00 (12.1-14.9) SECO NDS INR 0.95 (0.8-1.2) Sodium 136 (136-145) mmol/L Potassium 3.4 L (3.5-5.1) mmol/L Chloride 96 L (98-107) mmol/L Carbon Dioxide 31 H (22-29) mmol/L Anion Gap 12.4 (5-19) BUN 14 (8-23) mg/dL Creatinine 0.6 L (0.7-1.2) mg/dL GFR Calculation 137.4 H (90-130) mL/min Glucose 194 H (65-115) mg/dL Calculated Osmolal ity 288 (285-295) mOsm/k g Calcium 9.3 (8.5-10.5) mg/dL Magnesium 2.1 (1.7-2.3) mg/dL Total Bilirubin 0.3 (0.15-1.2) mg/dL AST 11 (0-40) U/L ALT 14 (0-41) U/L Alkaline Phosphata se 124 (40-130) IU/L C-Reactive Protein 3.1 (0.0-4.9) mg/L Total Protein 8.1 (6.6-8.7) g/dL Albumin 4.6 (3.5-5.2) g/dL Globulin 3.5 (1.3-4.6) g/dL Lipase 478 H (13-60) U/L Urine Color (Yellow) Urine Appearance (CLEAR) Urine pH (5-7) Ur Specific Gravit y (1.005-1.030) Urine Protein (Negative) Urine Glucose (UA) (Normal) Urine Ketones (Negative) Urine Blood (Negative) Urine Nitrate (Negative) Urine Bilirubin (Negative) Urine Urobilinogen (Negative) mg/dL Ur Leukocyte Rachel ase (Negative) Urine RBC (0-2) /hpf Urine WBC (0-5) /hpf Ur Squamous Epith Cells (0-5) /hpf Calcium Oxalate Cr ystal /hpf Amorphous Sediment Urine Bacteria (NONE) /hpf Urine Mucus /hpf 04/19/20 Range/Units 21:33 WBC (4.0-10.0) 10^3/ uL RBC (4.1-5.3) 10^6/u L Hgb (11.7-16.6) g/dL Hct (42.0-52.0) % MCV (80-94) fL MCH (28.0-34.0) pg MCHC (30.0-36.0) g/dL RDW (12.1-15.1) % Plt Count (130-400) 10^3/c mm MPV (7.4-10.4) fL Neut % (Auto) % Lymph % (Auto) % [place] % (Auto) % Eos % (Auto) % Baso % (Auto) % Neut # (Auto) (1.8-7.7) 10^3/u L Lymph # (Auto) (0.8-4.8) 10^3/u L [place] # (Auto) (0.2-0.9) 10^3/u L Eos # (Auto) (0.0-0.8) 10^3/u L Baso # (Auto) (0.0-0.1) 10^3/u L Nucleated RBC % (a uto) % Nucleated RBCs # /100WBC PT (12.1-14.9) SECO NDS INR (0.8-1.2) Sodium (136-145) mmol/L Potassium (3.5-5.1) mmol/L Chloride (98-107) mmol/L Carbon Dioxide (22-29) mmol/L Anion Gap (5-19) BUN (8-23) mg/dL Creatinine (0.7-1.2) mg/dL GFR Calculation (90-130) mL/min Glucose (65-115) mg/dL Calculated Osmolal ity (285-295) mOsm/k g Calcium (8.5-10.5) mg/dL Magnesium (1.7-2.3) mg/dL Total Bilirubin (0.15-1.2) mg/dL AST (0-40) U/L ALT (0-41) U/L Alkaline Phosphata se (40-130) IU/L C-Reactive Protein (0.0-4.9) mg/L Total Protein (6.6-8.7) g/dL Albumin (3.5-5.2) g/dL Globulin (1.3-4.6) g/dL Lipase (13-60) U/L Urine Color Yellow (Yellow) Urine Appearance Sl hazy (CLEAR) Urine pH 5 (5-7) Ur Specific Gravit y 1.030 (1.005-1.030) Urine Protein Neg (Negative) Urine Glucose (UA) 4+ H (Normal) Urine Ketones 1+ H (Negative) Urine Blood Neg (Negative) Urine Nitrate Negative (Negative) Urine Bilirubin 1+ H (Negative) Urine Urobilinogen 1 H (Negative) mg/dL Ur Leukocyte Rachel ase Negative (Negative) Urine RBC Rare (0-2) /hpf Urine WBC Rare (0-5) /hpf Ur Squamous Epith Cells Rare (0-5) /hpf Calcium Oxalate Cr ystal 25-40 H /hpf Amorphous Sediment Not Reportable Urine Bacteria Trace (NONE) /hpf Urine Mucus 1+ /hpf Discharge Plan Discharge Patient Disposition: Home Clinical Impression: Abdominal pain, Acute on chronic pancreatitis, Nausea Condition: Stable Prescriptions: New Protonix 40 mg tablet,delayed release (DR/EC) 40 mg PO DAILY Qty: 30 RF: 0 No Action sildenafil [Viagra] 100 mg tablet 100 mg PO QDAY PRNRF: 0 fluticasone propionate 50 mcg/actuation spray,suspension 1 spray INTRANASAL BID RF: 0 Creon 24,000-76,000 -120,000 unit capsule,delayed release(DR/EC) 1 cap PO TID Qty: 90 RF: 11 (DME) FreeStyle Lite Strips Strip See Rx Instructions .ROUTE .MEDSUPPLY Qty: 10 RF: 11 (DME) blood-glucose meter [FreeStyle [place]] Kit See Rx Instructions .ROUTE .MEDSUPPLY Qty: 1 RF: 0 metformin 1,000 mg tablet 1,000 mg PO BID Qty: 60 RF: 5 lidocaine 4 % gel 1 applic TOPICAL BID Qty: 10 RF: 4 lovastatin 40 mg tablet 40 mg PO QDAY Qty: 30 RF: 11 pregabalin 50 mg capsule See Rx Instructions PO BID Qty: 60 RF: 4 Zofran 4 mg tablet 4 mg PO Q6H PRN (Reason: nausea and vomiting) Qty: 20 RF: 0 Discharge Orders: Discharge ED (Routine); Ordered 04/20/20 Ordered By: Miryam Castaneda Referrals: Hector Flores DO [Primary Care Provider] - Discharge Diet: Clear Liquid Discharge Activity: Increase activity as tolerated Patient Instructions: Pancreatitis (ED), Clear Liquid Diet (ED) Activity Restrictions/Additional Instructions: Clear liquids only until pain has resolved. Avoid alcohol and fatty foods. Follow-up with your PCP as scheduled next week. Return immediately to the ER if your pain worsens, you develop fever, vomiting, or cannot keep any liquids down. Coding Level of Care Code ED Underwriting Technician for Lilia Calvin
[2020-04-20] MEDS: pantoprazole DR 40 mg Tablet PO (00:09)
[2020-04-20 00:17] VITALS: BP 105/70; RESP 18; O2SAT 98
[2020-04-20] MEDS: sucralfate 1 gm Tablet PO (01:05)
[2020-04-20 01:06] VITALS: BP 93/66; PULSE 58; RESP 17; O2SAT 98
== END 2020-04-20 01:10 | disposition home or self-care (01) ==
PROVIDERS: Nurse Practitioner Family; Emergency Provider Family Medicine; PCP Family Medicine
DX: K86.1 Other chronic pancreatitis (principal); R11.0 Nausea; Z79.84 Long term (current) use of oral hypoglycemic drugs; E11.9 Type 2 diabetes mellitus without complications; E78.5 Hyperlipidemia, unspecified; F17.210 Nicotine dependence, cigarettes, uncomplicated
CPT/HCPCS: 74177; 80053; 81001; 83690; 83735; 85025; 85610; 86140; 96361; 96374; 96375; 99283; J2270; J2405; J7030; Q9967

== ENCOUNTER 2020-04-28 10:40 | Outpatient (CLI) | payer MEDICARE, SELFPAY ==
--- NOTE | 2020-04-28 10:49 | XRR_ITS ---
PROCEDURE INFORMATION: Exam: XR Right Shoulder Exam date and time: 04/28/2020 10:56 AM Age: 60 years old Clinical indication: Shoulder; Right; Patient HX: No known trauma, pain since dec 2019; Additional info: M25.519 - pain in unspecified shoulder TECHNIQUE: Imaging protocol: XR Right shoulder. Views: 2 or more views. COMPARISON: No relevant prior studies available. FINDINGS: Bones/joints: No fracture or dislocation. There is mild degenerative changes of the right glenohumeral and acromioclavicular joints, manifested by joint space narrowing and small periarticular osteophytes. Soft tissues: Normal. XR/XR shoulder RT min 2V* [id number] IMPRESSION: Mild degenerative changes of the right glenohumeral and acromioclavicular joints.
== END 2020-04-28 10:41 | disposition home or self-care (01) ==
PROVIDERS: PCP Family Medicine; Visit Provider Family Medicine
DX: M25.511 Pain in right shoulder (principal)
CPT/HCPCS: 73030

== ENCOUNTER 2020-06-13 17:30 | Emergency (ER) | payer MEDICARE, SELFPAY ==
[2020-06-13 17:40] VITALS: BP 126/61; PULSE 70; RESP 20; TEMP 36.7; O2SAT 98; BMI 23.0
--- NOTE | 2020-06-13 17:53 | CTR_ITS ---
PROCEDURE INFORMATION: Exam: CT Abdomen And Pelvis With Contrast Exam date and time: 06/13/2020 6:13 PM Age: 60 years old Clinical indication: Abdominal pain; Localized; Upper; Prior surgery; Surgery type: Gb, back, pancreatic duct stent; Patient HX: Abd pain x 5 days, nausea TECHNIQUE: Imaging protocol: Computed tomography of the abdomen and pelvis with contrast. Radiation optimization: All CT scans at this facility use at least one of these dose optimization techniques: automated exposure control; mA and/or kV adjustment per patient size (includes targeted exams where dose is matched to clinical indication); or iterative reconstruction. Contrast material: OMNI 300; Contrast volume: 95 ml; Contrast route: INTRAVENOUS (IV); COMPARISON: CT abdomen pelvis w con* [id number] 04/19/2020 10:33 PM RADIATION DOSE METRICS: Total DLP (mGy-cm): 1426.22 FINDINGS: Lungs: The visualized lung bases are clear. Liver: Normal size and density. No focal mass. Gallbladder and bile ducts: Status post cholecystectomy. A stent is present within the common duct without dilatation of the common duct. There is mild diffuse intrahepatic biliary dilatation. Pancreas: Stent present within the pancreatic duct. Minimal dilatation of the distal portion of the duct. Scattered calcifications throughout pancreas, likely from prior episodes of pancreatitis. Small cystic lesion in the pancreatic tail is again noted and is slightly smaller than on the prior exam. Spleen: No splenomegaly or mass. Adrenal glands: Normal. Kidneys and ureters: A 3 mm left renal stone. No hydronephrosis. Normal renal enhancement. Stomach and bowel: A large amount of formed stool throughout the colon. A few distal diverticula. No signs of acute diverticulitis. Appendix: No evidence of appendicitis. Intraperitoneal space: No free air. No free fluid or evidence of abscess. Vasculature: A small amount of mixed hard and soft plaque throughout the mid to distal aorta and iliac arteries. Lymph nodes: No lymphadenopathy. Urinary bladder: Normal CT appearance. Reproductive: The prostate gland is at the upper limit of normal for size at 4.5 cm in transverse dimension. Bones/joints: Moderate degenerative changes of the spine. Soft tissues: Within normal limits. CT/CT abdomen pelvis w con* [id number] IMPRESSION: 1. A large amount of formed stool throughout the colon suggesting constipation. 2. Unchanged mild intrahepatic biliary dilatation. 3. Nonobstructing 3 mm left renal stone. Radiation Dose CTDIVOL = (mGy): DLP = 1426.22 (mGy-cm)
[2020-06-13] MEDS: iohexol 300 mg/mL 100 mL Btl IV (18:17)
--- NOTE | 2020-06-13 18:18 | ED_ITS ---
HPI - Abdominal Pain General: Chief Complaint: Abdominal Pain Stated Complaint: pancreas Time Seen by Provider: 06/13/20 17:52 Source: patient Mode of arrival: ambulatory Limitations: no limitations History of Present Illness: HPI narrative: 60-year-old male has a history of pancreatitis. He states he had a stent placed in his duct 1 year ago as he kept having recurrent pancreatitis. He states that last 5 days he has had pain with increasing last 2 days. States pain is sharp in nature and is in the epigastric region. He denies any vomiting or diarrhea. He has had some nausea. Denies any fever. MD elicited complaint: abdominal pain Associated Symptoms: Denies chills, dysuria and fever(s) Review of Systems Const: Denies: fever(s), chills, body aches or change in appetite Eyes: Denies: blurry vision or eye discomfort ENMT: Denies: throat pain or dental pain Card: Denies: chest pain Resp: Denies: dyspnea GI: Reports: abdominal pain : Denies: dysuria Musc: Denies: neck pain or back pain Skin/Breast: Denies: rash Neuro: Denies: headache(s) Psych: Denies: depression Ian/Lymph: Denies: easy bruising All/Imm: Denies: urticaria PFSH ED PFSH: Medical History (Updated 06/13/20 @ 19:01 by Be Rivera MD) Acute pancreatitis Diabetes GERD (gastroesophageal reflux disease) Hyperlipidemia Idiopathic chronic pancreatitis Insomnia Presence of pancreatic duct stent PTSD (post-traumatic stress disorder) Surgical History History of back surgery S/P cholecystectomy Social History Smoking and tobacco status: current every day smoker cigarettes Packs smoked per day: 1 Alcohol intake: never Physical Exam Const: COMMON NORMALS: no acute distress, patient oriented x3 and healthy appearing HENMT: COMMON NORMALS: normocephalic and atraumatic HEAD & SCALP: normocephalic and atraumatic Eye: COMMON NORMALS: Equal, round and reactive pupils present and EOMs intact bilaterally PUPIL: Yes Equal, round and reactive pupils present Neck/C-Spine: COMMON NORMALS: full ROM and supple Chest: COMMONS NORMALS: normal inspection of the chest and normal palpation of entire chest wall Resp: COMMON NORMALS: normal respiratory effort, No retractions, No use of accessory muscles and clear to auscultation bilaterally AUSCULTATION: clear to auscultation bilaterally Cardio: COMMON NORMALS: regular rate, regular rhythm and No murmurs present (Cardio) RATE: regular rate RHYTHM: regular rhythm GI: COMMON NORMALS: Normal to inspection, nondistended, normoactive bowel sounds present, Soft to palpation and no masses PALPATION: Yes Soft to palpation and Yes Tenderness to palpation present (GI) (epigastric) Extremity: COMMON NORMALS: normal to inspection and full ROM Neuro: COMMON NORMALS: patient oriented x3, moves all extremities and no focal motor deficits Psych: COMMON NORMALS: mental status grossly normal, Normal thought process present and cooperative THOUGHT PROCESS: Normal thought process present Skin: COMMON NORMALS: no rashes or lesions noted and no wounds GENERAL SKIN EXAM: no rashes or lesions noted Course Vital Signs: Vital signs: Vital Signs Temperature 98.1 F 06/13/20 17:40 Pulse Rate 70 06/13/20 17:40 Respiratory Rate 18 06/13/20 18:34 Blood Pressure 126/61 06/13/20 17:40 Pulse Oximetry 98 06/13/20 17:40 MDM - Abdominal Pain MDM Narrative: Medical decision making narrative: Pranav presents here with abdominal pain likely from constipation. Lipase is mildly elevated but his CT scan shows no signs of ductal blockage or pancreatitis. He does have some dilation which is chronic in nature. Patient pain believes likely from his constipation. Will trial meds for home. I did inform him do an all liquid diet. I told him if he has any vomiting or worsening pain he is to return immediately. He understands and agrees to plan. Lab Data: Labs: Lab Results 06/13/20 06/13/20 Range/Units 18:01 18:01 WBC 9.9 (4.0-10.0) 10^3/ uL RBC 5.94 H (4.1-5.3) 10^6/u L Hgb 17.0 H (11.7-16.6) g/dL Hct 52.1 H (42.0-52.0) % MCV 87.7 (80-94) fL MCH 28.6 (28.0-34.0) pg MCHC 32.6 (30.0-36.0) g/dL RDW 13.2 (12.1-15.1) % Plt Count 222 (130-400) 10^3/c mm MPV 11.2 H (7.4-10.4) fL Neut % (Auto) 70.3 % Lymph % (Auto) 17.5 % [place] % (Auto) 7.2 % Eos % (Auto) 3.6 % Baso % (Auto) 1.0 % Neut # (Auto) 6.98 (1.8-7.7) 10^3/u L Lymph # (Auto) 1.7 (0.8-4.8) 10^3/u L [place] # (Auto) 0.7 (0.2-0.9) 10^3/u L Eos # (Auto) 0.4 (0.0-0.8) 10^3/u L Baso # (Auto) 0.1 (0.0-0.1) 10^3/u L Nucleated RBC % (a uto) 0 % Nucleated RBCs # 0.0 /100WBC Sodium 141 (136-145) mmol/L Potassium 3.8 (3.5-5.1) mmol/L Chloride 100 (98-107) mmol/L Carbon Dioxide 29 (22-29) mmol/L Anion Gap 15.8 (5-19) BUN 14 (8-23) mg/dL Creatinine 0.5 L (0.7-1.2) mg/dL GFR Calculation 169.6 H (90-130) mL/min Glucose 159 H (65-115) mg/dL Calculated Osmolal ity 296 H (285-295) mOsm/k g Calcium 9.6 (8.5-10.5) mg/dL Total Bilirubin 0.4 (0.15-1.2) mg/dL AST 15 (0-40) U/L ALT 20 (0-41) U/L Alkaline Phosphata se 115 (40-130) IU/L Total Protein 7.5 (6.6-8.7) g/dL Albumin 4.5 (3.5-5.2) g/dL Globulin 3.0 (1.3-4.6) g/dL Lipase 351 H (13-60) U/L Imaging Data ^: CT Abd/Pel: Attestation: I personally reviewed and interpreted this imaging study as follows: Radiologist's impression: [address] [address] [address] Scan Report Signed Patient: Pranav Johnson Unit #: [id number] : 1960 Age/Sex: 60 / M ADM Date: 06/13/20 Loc: ER Room/Bed: Attending Dr: Ordering Provider/Ordering MD: Antonio Martin DO Date of Service: 06/13/20 Procedure(s): CT abdomen pelvis w con* [id number] Accession Number(s): [id number] Report Number: [id number] PROCEDURE INFORMATION: Exam: CT Abdomen And Pelvis With Contrast Exam date and time: 06/13/2020 6:13 PM Age: 60 years old Clinical indication: Abdominal pain; Localized; Upper; Prior surgery; Surgery type: Gb, back, pancreatic duct stent; Patient HX: Abd pain x 5 days, nausea TECHNIQUE: Imaging protocol: Computed tomography of the abdomen and pelvis with contrast. Radiation optimization: All CT scans at this facility use at least one of these dose optimization techniques: automated exposure control; mA and/or kV adjustment per patient size (includes targeted exams where dose is matched to clinical indication); or iterative reconstruction. Contrast material: OMNI 300; Contrast volume: 95 ml; Contrast route: INTRAVENOUS (IV); COMPARISON: CT abdomen pelvis w con* [id number] 04/19/2020 10:33 PM RADIATION DOSE METRICS: Total DLP (mGy-cm): 1426.22 FINDINGS: Lungs: The visualized lung bases are clear. Liver: Normal size and density. No focal mass. Gallbladder and bile ducts: Status post cholecystectomy. A stent is present within the common duct without dilatation of the common duct. There is mild diffuse intrahepatic biliary dilatation. Pancreas: Stent present within the pancreatic duct. Minimal dilatation of the distal portion of the duct. Scattered calcifications throughout pancreas, likely from prior episodes of pancreatitis. Small cystic lesion in the pancreatic tail is again noted and is slightly smaller than on the prior exam. Spleen: No splenomegaly or mass. Adrenal glands: Normal. Kidneys and ureters: A 3 mm left renal stone. No hydronephrosis. Normal renal enhancement. Stomach and bowel: A large amount of formed stool throughout the colon. A few distal diverticula. No signs of acute diverticulitis. Appendix: No evidence of appendicitis. Intraperitoneal space: No free air. No free fluid or evidence of abscess. Vasculature: A small amount of mixed hard and soft plaque throughout the mid to distal aorta and iliac arteries. Lymph nodes: No lymphadenopathy. Urinary bladder: Normal CT appearance. Reproductive: The prostate gland is at the upper limit of normal for size at 4.5 cm in transverse dimension. Bones/joints: Moderate degenerative changes of the spine. Soft tissues: Within normal limits. CT/CT abdomen pelvis w con* [id number] IMPRESSION: 1. A large amount of formed stool throughout the colon suggesting constipation. 2. Unchanged mild intrahepatic biliary dilatation. 3. Nonobstructing 3 mm left renal stone. Discharge Plan Discharge Patient Disposition: Home Clinical Impression: Idiopathic chronic pancreatitis Constipation Qualifiers: Constipation type: unspecified constipation type Qualified Code(s): K59.00 - Constipation, unspecified Condition: Stable Prescriptions: New hydrocodone-acetaminophen 5-325 mg tablet 1 tab PO Q6H PRN (Reason: pain) Qty: 14 RF: 0 ondansetron 4 mg tablet,disintegrating 4 mg PO Q6H PRN (Reason: nausea and vomiting) Qty: 14 RF: 0 Miralax 17 gram/dose powder 17 g PO DAILY PRN (Reason: constipation) Qty: 119 RF: 0 No Action sildenafil [Viagra] 100 mg tablet 100 mg PO QDAY PRN (Reason: UNKNOWN) RF: 0 fluticasone propionate 50 mcg/actuation spray,suspension 1 spray INTRANASAL BID@0800,2000 RF: 0 (DME) FreeStyle Lite Strips Strip See Rx Instructions .ROUTE .MEDSUPPLY Qty: 10 RF: 11 (DME) blood-glucose meter [FreeStyle [place]] Kit See Rx Instructions .ROUTE .MEDSUPPLY Qty: 1 RF: 0 lovastatin 40 mg tablet 40 mg PO DAILY@0800 RF: 0 Protonix 40 mg tablet,delayed release (DR/EC) 40 mg PO DAILY@0800 RF: 0 metformin 1,000 mg tablet 1,000 mg PO BID@08,20 RF: 0 pregabalin 50 mg capsule 50 mg PO BID@08,20 RF: 0 Creon 24,000-76,000 -120,000 unit capsule,delayed release(DR/EC) 2 cap PO BID@ RF: 0 lidocaine 4 % gel 1 applic TOPICAL BID@ RF: 0 ondansetron HCl [Zofran] 4 mg tablet 4 mg PO Q6H PRN (Reason: nausea and vomiting) Qty: 20 RF: 0 Discharge Orders: Discharge ED (Routine); Ordered 06/13/20 Ordered By: Be Rivera Referrals: Hector Flores, [Primary Care Provider] - 1-3 days Discharge Diet: Advance as tolerated Discharge Activity: Resume usual activity Patient Instructions: Pancreatitis (ED), Constipation (ED), Opioid Safety Coding Level of Care Code ED Conditioning Machine Operator for Chg Fwd Exam Comprehensive
[2020-06-13] MEDS: ondansetron 2 mg/ML SDV 2 mL 4 MG IVP (18:24)
[2020-06-13] MEDS: sodium chloride 0.9% 1,000 ML 999 ML IV (18:25)
[2020-06-13 18:34] VITALS: RESP 18
[2020-06-13 18:34] LABS: Basophils # 0.1 10^3/uL (0.0-0.1); Eosinophils # 0.4 10^3/uL (0.0-0.8); Eosinophils % 3.6 %; Hematocrit 52.1 % (42.0-52.0); Lymphocytes # 1.7 10^3/uL (0.8-4.8); Lymphocytes % 17.5 %; Mean Corpuscular HGB Conc 32.6 g/dL (30.0-36.0); Mean Corpuscular Hemoglobin 28.6 pg (28.0-34.0); Mean Corpuscular Volume 87.7 fL (80-94); Mean Platelet Volume 11.2 fL (7.4-10.4); Monocytes # 0.7 10^3/uL (0.2-0.9); Monocytes % 7.2 %; Neutrophils # 6.98 10^3/uL (1.8-7.7); Neutrophils % 70.3 %; Nucleated Red Blood Cells % 0 %; Platelet Count 222 10^3/cmm (130-400); Red Blood Count 5.94 10^6/uL (4.1-5.3); Red Cell Distribution Width 13.2 % (12.1-15.1); White Blood Count 9.9 10^3/uL (4.0-10.0)
[2020-06-13] MEDS: HYDROmorphone 1 mg/mL INJ 1 mL IVP (18:34)
[2020-06-13 18:47] LABS: Alanine Aminotransferase 20 U/L (0-41); Albumin Level 4.5 g/dL (3.5-5.2); Alkaline Phosphatase 115 IU/L (40-130); Anion Gap 15.8 (5-19); Aspartate Amino Transferase 15 U/L (0-40); Blood Urea Nitrogen 14 mg/dL (8-23); Calcium 9.6 mg/dL (8.5-10.5); Carbon Dioxide 29 mmol/L (22-29); Chloride 100 mmol/L (98-107); Glomerular Filtration Rate 169.6 mL/min (90-130); Glucose 159 mg/dL (65-115); Osmolality Calculated 296 mOsm/kg (285-295); Potassium 3.8 mmol/L (3.5-5.1); Sodium 141 mmol/L (136-145); Total Bilirubin 0.4 mg/dL (0.15-1.2); Total Protein 7.5 g/dL (6.6-8.7)
[2020-06-13 18:54] LABS: Lipase 351 U/L (13-60)
[2020-06-13] MEDS: lactulose oral liq 20 gm/30 mL UDC 30 GM PO (19:05)
[2020-06-13 19:10] VITALS: PULSE 60; RESP 18; O2SAT 98
== END 2020-06-13 19:11 | disposition home or self-care (01) ==
PROVIDERS: Family Medicine; Emergency Provider Emergency Medicine; PCP Family Medicine
DX: K86.1 Other chronic pancreatitis (principal); K59.00 Constipation, unspecified; Z79.84 Long term (current) use of oral hypoglycemic drugs; E11.9 Type 2 diabetes mellitus without complications; E78.5 Hyperlipidemia, unspecified; F17.210 Nicotine dependence, cigarettes, uncomplicated
CPT/HCPCS: 74177; 80053; 83690; 85025; 96361; 96374; 96375; 99284; J1170; J2405; J7030; Q9967

== ENCOUNTER → 2020-07-28 14:13 | Outpatient (BNVA) | payer MEDICARE, SELFPAY | PROVIDERS: PCP Family Medicine; Visit Provider Internal Medicine | DX: Z01.812 Encounter for preprocedural laboratory examination (principal); Z20.822 Contact with and (suspected) exposure to COVID-19 | CPT/HCPCS: 87635 ==

== ENCOUNTER 2020-07-30 19:42 | Emergency (ER) | payer MEDICARE, SELFPAY ==
[2020-07-30 20:01] VITALS: BP 96/58; PULSE 80; RESP 15; TEMP 36.9; O2SAT 97; BMI 23.0
--- NOTE | 2020-07-30 20:14 | ED_ITS ---
HPI - Abdominal Pain General: Chief Complaint: Abdominal Pain Stated Complaint: Pancreas issues Time Seen by Provider: 07/30/20 20:07 Source: patient Mode of arrival: ambulatory Limitations: no limitations History of Present Illness: HPI narrative: 60-year-old male has a chronic history of pancreatitis does have a stent in his pancreatic duct. He states that over the last 2 days been having epigastric pain that feels like his previous pancreatitis. States pain is sharp in nature and rates it a 6 out of 10. He denies any vomiting or diarrhea. Denies any fevers. Denies any worsening improving factors. MD elicited complaint: abdominal pain Associated Symptoms: Denies chills, dysuria and fever(s) Review of Systems Const: Denies: fever(s), chills, body aches or change in appetite Eyes: Denies: blurry vision or eye discomfort ENMT: Denies: throat pain or dental pain Card: Denies: chest pain Resp: Denies: dyspnea GI: Reports: abdominal pain : Denies: dysuria Musc: Denies: neck pain or back pain Skin/Breast: Denies: rash Neuro: Denies: headache(s) Psych: Denies: depression Ian/Lymph: Denies: easy bruising All/Imm: Denies: urticaria PFSH ED PFSH: Medical History (Updated 07/30/20 @ 21:57 by Be Rivera MD) Acute pancreatitis Diabetes GERD (gastroesophageal reflux disease) Hyperlipidemia Idiopathic chronic pancreatitis Insomnia Presence of pancreatic duct stent PTSD (post-traumatic stress disorder) Surgical History History of back surgery S/P cholecystectomy Social History Smoking and tobacco status: current every day smoker cigarettes Packs smoked per day: 1 Alcohol intake: never Physical Exam Const: COMMON NORMALS: no acute distress, patient oriented x3 and healthy appearing HENMT: COMMON NORMALS: normocephalic and atraumatic HEAD & SCALP: normocephalic and atraumatic Eye: COMMON NORMALS: Equal, round and reactive pupils present and EOMs intact bilaterally PUPIL: Yes Equal, round and reactive pupils present Neck/C-Spine: COMMON NORMALS: full ROM and supple Chest: COMMONS NORMALS: normal inspection of the chest and normal palpation of entire chest wall Resp: COMMON NORMALS: normal respiratory effort, No retractions, No use of accessory muscles and clear to auscultation bilaterally AUSCULTATION: clear to auscultation bilaterally Cardio: COMMON NORMALS: regular rate, regular rhythm and No murmurs present (Cardio) RATE: regular rate RHYTHM: regular rhythm GI: COMMON NORMALS: Normal to inspection, nondistended, normoactive bowel sounds present, Soft to palpation and no masses PALPATION: Yes Soft to palpation and Yes Tenderness to palpation present (GI) Details: other (epigastric) Extremity: COMMON NORMALS: normal to inspection and full ROM Neuro: COMMON NORMALS: patient oriented x3, moves all extremities and no focal motor deficits Psych: COMMON NORMALS: mental status grossly normal, Normal thought process present and cooperative THOUGHT PROCESS: Normal thought process present Skin: COMMON NORMALS: no rashes or lesions noted and no wounds GENERAL SKIN EXAM: no rashes or lesions noted Course Vital Signs: Vital signs: Vital Signs Temperature 98.4 F 07/30/20 20:01 Pulse Rate 80 07/30/20 20:01 Respiratory Rate 18 07/30/20 20:22 Blood Pressure 96/58 07/30/20 20:01 Pulse Oximetry 98 07/30/20 20:22 MDM - Abdominal Pain MDM Narrative: Medical decision making narrative: Pranav presents with pancreatitis that is mild in nature. He is in no pain currently I did offer him admission but he states he like to try pain meds at home. Will prescribe him hydrocodone and he is to do an all liquid diet. He is to follow-up with his building serviceman in 2 to 4 days return to the ER if he has any worsening symptoms. He understands agrees to this plan. Lab Data: Labs: Lab Results 07/30/20 07/30/20 Range/Units 20:17 20:17 WBC 10.5 H (4.0-10.0) 10^3/ uL RBC 5.50 H (4.1-5.3) 10^6/u L Hgb 15.8 (11.7-16.6) g/dL Hct 48.8 (42.0-52.0) % MCV 88.7 (80-94) fL MCH 28.7 (28.0-34.0) pg MCHC 32.4 (30.0-36.0) g/dL RDW 13.4 (12.1-15.1) % Plt Count 167 (130-400) 10^3/c mm MPV 10.3 (7.4-10.4) fL Neut % (Auto) 72.5 % Lymph % (Auto) 14.1 % [place] % (Auto) 10.3 % Eos % (Auto) 1.8 % Baso % (Auto) 0.4 % Neut # (Auto) 7.59 (1.8-7.7) 10^3/u L Lymph # (Auto) 1.5 (0.8-4.8) 10^3/u L [place] # (Auto) 1.1 H (0.2-0.9) 10^3/u L Eos # (Auto) 0.2 (0.0-0.8) 10^3/u L Baso # (Auto) 0.0 (0.0-0.1) 10^3/u L Nucleated RBC % (a uto) 0 % Nucleated RBCs # 0.0 /100WBC Sodium 135 L (136-145) mmol/L Potassium 3.8 (3.5-5.1) mmol/L Chloride 97 L (98-107) mmol/L Carbon Dioxide 25 (22-29) mmol/L Anion Gap 16.8 (5-19) BUN 12 (8-23) mg/dL Creatinine 0.5 L (0.7-1.2) mg/dL GFR Calculation 169.6 H (90-130) mL/min Glucose 220 H (65-115) mg/dL Calculated Osmolal ity 287 (285-295) mOsm/k g Calcium 8.7 (8.5-10.5) mg/dL Total Bilirubin 0.8 (0.15-1.2) mg/dL AST 9 (0-40) U/L ALT 9 (0-41) U/L Alkaline Phosphata se 100 (40-130) IU/L Total Protein 6.9 (6.6-8.7) g/dL Albumin 4.4 (3.5-5.2) g/dL Globulin 2.5 (1.3-4.6) g/dL Lipase 136 H (13-60) U/L Imaging Data ^: CT Abd/Pel: Attestation: I personally reviewed and interpreted this imaging study as follows: Rad[facility]'s [facility] [address] [place] [address] CT Scan Report Signed Patient: Pranav Johnson Unit #: [id number] : 1960 Age/Sex: 60 / M ADM Date: 07/30/20 Loc: ER Room/Bed: Attending Dr: Ordering Provider/Ordering MD: Be Rivera MD Date of Service: 07/30/20 Procedure(s): CT abdomen pelvis w con* [id number] Accession Number(s): [id number] Report Number: [id number] PROCEDURE INFORMATION: Exam: CT Abdomen And Pelvis With Contrast Exam date and time: 07/30/2020 8:50 PM Age: 60 years old Clinical indication: Abdominal pain; Prior surgery; Surgery date: 6+ months; Surgery type: Gb, pancreatic stent; Patient HX: C/O epigastric pain w HX of pancreatitis and stent; Additional info: Abd pain TECHNIQUE: Imaging protocol: Computed tomography of the abdomen and pelvis with contrast. Radiation optimization: All CT scans at this facility use at least one of these dose optimization techniques: automated exposure control; mA and/or kV adjustment per patient size (includes targeted exams where dose is matched to clinical indication); or iterative reconstruction. Contrast material: OMNI 300; Contrast volume: 95 ml; Contrast route: INTRAVENOUS (IV); COMPARISON: CT abdomen pelvis w con* [id number] 06/13/2020 6:30 PM RADIATION DOSE METRICS: Total DLP (mGy-cm): 1283.14 FINDINGS: Lungs: Lung bases are clear. Liver: The liver is normal. Gallbladder and bile ducts: There is mild intrahepatic bile duct dilation. The common bile duct is mildly dilated measuring up to 9 mm diameter. There is a stent in the common bile duct which is appropriately positioned. The proximal portion is near the sydnee hepatis and the distal portion is in the proximal duodenum just past the ampulla. There is an adjacent pancreatic duct stent which is also appropriately positioned. Pancreas: There is no pancreatic duct dilation.There are scattered calcifications in the pancreatic parenchyma consistent with chronic pancreatitis. There is mild peripancreatic edema involving the head, neck and uncinate process. There is central mesenteric edema in the upper abdomen, likely related to pancreatitis. Spleen: The spleen is unremarkable. Adrenal glands: The adrenal glands are unremarkable. Kidneys and ureters: There is a nonobstructive stone in the left kidney. There is no hydronephrosis or ureteral dilation. Stomach and bowel: The stomach is decompressed, preventing meaningful evaluation of wall thickness. The small bowel is nondilated. The colon is unremarkable. Appendix: The appendix is normal. Intraperitoneal space: There is no free air or significant intraperitoneal free fluid. Vasculature: There is moderate aortic atherosclerotic disease. Lymph nodes: There are multiple small upper mesenteric lymph nodes. There is no retroperitoneal or pelvic lymphadenopathy. Urinary bladder: The urinary bladder is unremarkable. Reproductive: The prostate and seminal vesicles are unremarkable. Bones/joints: There is moderate degenerative disease in the lumbar spine. The pelvis and proximal femora are intact. Soft tissues: The abdominal wall is intact. CT/CT abdomen pelvis w con* [id number] IMPRESSION: 1. Acute on chronic interstitial edematous pancreatitis involving the head, neck and uncinate process. No sign of necrosis or hemorrhage. 2. Satisfactory common bile duct and pancreatic duct stent positions. There is mild intrahepatic biliary dilation. Biliary dilation is similar to 06/13/2020. There is no pancreatic duct dilation. 3. Incidental findings above. Discharge Plan Discharge Patient Disposition: Home Clinical Impression: Pancreatitis Qualifiers: Chronicity: chronic Pancreatitis type: unspecified pancreatitis type Qualified Code(s): K86.1 - Other chronic pancreatitis Condition: Stable Prescriptions: New hydrocodone-acetaminophen 5-325 mg tablet 1 tab PO Q6H PRN (Reason: pain) Qty: 14 RF: 0 ondansetron 4 mg tablet,disintegrating 4 mg PO Q6H PRN (Reason: nausea and vomiting) Qty: 14 RF: 0 No Action sildenafil [Viagra] 100 mg tablet 100 mg PO QDAY PRN (Reason: UNKNOWN) RF: 0 fluticasone propionate 50 mcg/actuation spray,suspension 1 spray INTRANASAL BID@0800,2000 RF: 0 (DME) FreeStyle Lite Strips Strip See Rx Instructions .ROUTE .MEDSUPPLY Qty: 10 RF: 11 (DME) blood-glucose meter [FreeStyle [place]] Kit See Rx Instructions .ROUTE .MEDSUPPLY Qty: 1 RF: 0 pantoprazole 40 mg tablet,delayed release (DR/EC) See Rx Instructions .ROUTE .COMPLEX Qty: 90 RF: 0 lovastatin 40 mg tablet 40 mg PO DAILY@0800 RF: 0 metformin 1,000 mg tablet 1,000 mg PO BID@ RF: 0 pregabalin 50 mg capsule 50 mg PO BID@ RF: 0 Creon 24,000-76,000 -120,000 unit capsule,delayed release(DR/EC) 2 cap PO BID@799,1999 RF: 0 lidocaine 4 % gel 1 applic TOPICAL BID@799,1999 RF: 0 hydrocodone-acetaminophen 5-325 mg tablet 1 tab PO Q6H PRN (Reason: pain) Qty: 14 RF: 0 ondansetron 4 mg tablet,disintegrating 4 mg PO Q6H PRN (Reason: nausea and vomiting) Qty: 14 RF: 0 Miralax 17 gram/dose powder 17 g PO DAILY PRN (Reason: constipation) Qty: 119 RF: 0 ondansetron HCl [Zofran] 4 mg tablet 4 mg PO Q6H PRN (Reason: nausea and vomiting) Qty: 20 RF: 0 Discharge Orders: Discharge ED (Routine); Ordered 07/30/20 Ordered By: Be Rivera Referrals: Hector Flores DO [Primary Care Provider] - 1-3 days Discharge Diet: Advance as tolerated Discharge Activity: Resume usual activity Patient Instructions: Pancreatitis (ED), Opioid Safety Coding Level of Care Code ED Business Info Consultant for Lig Fwd Exam Comprehensive
[2020-07-30 20:22] VITALS: RESP 18; O2SAT 98
[2020-07-30] MEDS: HYDROmorphone 1 mg/mL INJ 1 mL IVP (20:22)
[2020-07-30] MEDS: ondansetron 2 mg/ML SDV 2 mL 4 MG IVP (20:22)
[2020-07-30 20:25] LABS: Basophils % 0.4 %; Eosinophils # 0.2 10^3/uL (0.0-0.8); Eosinophils % 1.8 %; Hematocrit 48.8 % (42.0-52.0); Hemoglobin 15.8 g/dL (11.7-16.6); Lymphocytes # 1.5 10^3/uL (0.8-4.8); Lymphocytes % 14.1 %; Mean Corpuscular HGB Conc 32.4 g/dL (30.0-36.0); Mean Corpuscular Hemoglobin 28.7 pg (28.0-34.0); Mean Corpuscular Volume 88.7 fL (80-94); Mean Platelet Volume 10.3 fL (7.4-10.4); Monocytes # 1.1 10^3/uL (0.2-0.9); Monocytes % 10.3 %; Neutrophils # 7.59 10^3/uL (1.8-7.7); Neutrophils % 72.5 %; Nucleated Red Blood Cells % 0 %; Platelet Count 167 10^3/cmm (130-400); Red Cell Distribution Width 13.4 % (12.1-15.1); White Blood Count 10.5 10^3/uL (4.0-10.0)
[2020-07-30 20:42] LABS: Alanine Aminotransferase 9 U/L (0-41); Albumin Level 4.4 g/dL (3.5-5.2); Alkaline Phosphatase 100 IU/L (40-130); Anion Gap 16.8 (5-19); Aspartate Amino Transferase 9 U/L (0-40); Blood Urea Nitrogen 12 mg/dL (8-23); Calcium 8.7 mg/dL (8.5-10.5); Carbon Dioxide 25 mmol/L (22-29); Chloride 97 mmol/L (98-107); Globulin 2.5 g/dL (1.3-4.6); Glomerular Filtration Rate 169.6 mL/min (90-130); Glucose 220 mg/dL (65-115); Lipase 136 U/L (13-60); Osmolality Calculated 287 mOsm/kg (285-295); Potassium 3.8 mmol/L (3.5-5.1); Sodium 135 mmol/L (136-145); Total Bilirubin 0.8 mg/dL (0.15-1.2); Total Protein 6.9 g/dL (6.6-8.7)
[2020-07-30] MEDS: iohexol 300 mg/mL 100 mL Btl IV (21:01)
== END 2020-07-30 22:36 | disposition home or self-care (01) ==
PROVIDERS: Emergency Provider Emergency Medicine; PCP Family Medicine
DX: K86.1 Other chronic pancreatitis (principal); Z79.84 Long term (current) use of oral hypoglycemic drugs; E11.9 Type 2 diabetes mellitus without complications; E78.5 Hyperlipidemia, unspecified; F17.210 Nicotine dependence, cigarettes, uncomplicated
CPT/HCPCS: 74177; 80053; 83690; 85025; 96374; 96375; 99283; J1170; J2405; Q9967

== ENCOUNTER 2020-08-04 08:22 | Day surgery (SDC) | payer MEDICARE, SELFPAY ==
[2020-08-02 14:17] VITALS: BMI 23.1
--- NOTE | 2020-08-04 08:52 | ANES.PREANE2 ---
Pre-Anesthetic Assessment Pre-Anesthetic Assessment: Height/Weight: Height 1.83 m Weight 77.564 kg Preop Diagnosis: abominal pain Proposed Procedure: Operation Date: 08/04/20 10:15 Proposed Procedures p EGD 76576 R10.13(Not Applicable) - Polo Wilson MD Familial anesthetic complications: None Was Beta Annalee taken within 24 hours: N/A Was Clonidine taken within 24 hours: N/A Last intake: NPO > 8 hrs Social: Social History: Tobacco and No alcohol Exam: Pre-Anes Outpt Exam: alert, oriented x 3, clear to auscultation bilaterally and regular rate & rhythm Airway: Cervical ROM: WNL MP: 3 Dentition: Partials GI: GI: GERD Comments: pancreatitis Metabolic: Metabolic: DM and Hyperlipidemia Musc/skel: Musc/skel: Lower Back Pain and OA/DJD (shoulder) Anesthetic Plan: ASA status: 3 Anesthesia: MAC Risk of > 500 ml blood loss (7ml/kg in children): No PFSH Anesthesia PFSH: Medical History (Updated 07/30/20 @ 21:57 by Be Rivera MD) Acute pancreatitis Diabetes GERD (gastroesophageal reflux disease) Hyperlipidemia Idiopathic chronic pancreatitis Insomnia Presence of pancreatic duct stent PTSD (post-traumatic stress disorder) Surgical History History of back surgery S/P cholecystectomy Social History Smoking and tobacco status: current every day smoker cigarettes Packs smoked per day: 1 Alcohol intake: never Data Anesthesia Cardiac Studies: No Data to Display
--- NOTE | 2020-08-04 09:45 | P.HP_ITS ---
Same Day Surgery H&P Indication for Procedure/HPI DATE OF PROCEDURE: August 04, 2020 CHIEF COMPLAINT/INDICATIONFOR SURGICAL PROCEDURE: Epigastric pain PREOP DIAGNOSIS: epig pain PLANNED PROCEDRUE: Operation Date: 08/04/20 10:15 Proposed Procedures p EGD 46620 R10.13(Not Applicable) - Polo Wilson MD Medications/Allergies* Home Medications Medication Instructions Recorded Confirmed Type fluticasone propionate 50 1 spray INTRANASAL BID@08,199904/01/19 08/02/20 History mcg/actuation nasal PRN spray,suspension [id number] [Creon] 2 cap PO BID@08,199906/13/20 08/02/20 History lovastatin 40 mg PO DAILY@19006/13/20 08/02/20 History metformin 1,000 mg PO BID@06/13/20 08/02/20 History pregabalin 50 mg PO BID@06/13/20 08/02/20 History pantoprazole 40 mg PO DAILY 08/02/20 08/02/20 History Allergies/Adverse Reactions Allergy/AdvReac Type Severity Reaction Status Date / Time nabumetone [From Relafen] Allergy Severe ALGY-Anaphy Verified 08/02/20 14:10 laxis Pertinent History/Comorbid Conditions* Medical History (Updated 07/30/20 @ 21:57 by Be Rivera MD) Acute pancreatitis Diabetes GERD (gastroesophageal reflux disease) Hyperlipidemia Idiopathic chronic pancreatitis Insomnia Presence of pancreatic duct stent PTSD (post-traumatic stress disorder) Surgical History (Updated 10/14/19 @ 20:07 by Lisa Sanchez) History of back surgery S/P cholecystectomy Social History Smoking and tobacco status: current every day smoker cigarettes Packs smoked per day: 1 Alcohol intake: never Pertinent Exam Findings alert, oriented x 3, clear to auscultation bilaterally, regular rate & rhythm, operative site marked and procedure specific exam findings Recommendations Surgery/Procedure today Coding Level of Care Code Acute Piping Drafter for Lilia Calvin
[2020-08-04 09:55] VITALS: BP 109/71; PULSE 60; RESP 16; TEMP 36.2; O2SAT 93
[2020-08-04 10:22] LABS: Glucose Point of Care 197 mg/dL (70-110)
[2020-08-04] MEDS: sodium chloride 0.9% 1,000 ML 30 ML IV (10:30)
[2020-08-04 10:56] VITALS: BP 116/70; PULSE 60; RESP 16; TEMP 36.3; O2SAT 96
[2020-08-04 11:12] VITALS: BP 105/67; PULSE 63; RESP 16; O2SAT 98
--- NOTE | 2020-08-04 13:14 | ANE.PACU2 ---
Inpatient post-anesthesia follow up: Airway intact: Yes Vital signs: Temperature 97.4 F Pulse Rate 63 Respiratory Rate 16 Blood Pressure 105/67 Pulse Oximetry 98 Oxygen Delivery Me thod Room Air Oxygen Flow Rate Fraction of Inspir ed Oxygen Hydration adequate: Yes Nausea and vomiting: No Pain level: 2 Mental status: Baseline
== END 2020-08-04 11:24 | disposition home or self-care (01) ==
PROVIDERS: PCP Family Medicine; Visit Provider Internal Medicine
PROC: 0DJ08ZZ Inspection of Upper Intestinal Tract, Via Natural or Artificial Opening Endoscopic (ICD-10-PCS; CPT 43235; principal; 2020-08-04 10:15)
DX: R10.13 Epigastric pain (principal); E11.9 Type 2 diabetes mellitus without complications; K21.9 Gastro-esophageal reflux disease without esophagitis; E78.5 Hyperlipidemia, unspecified; F17.210 Nicotine dependence, cigarettes, uncomplicated; M19.019 Primary osteoarthritis, unspecified shoulder
CPT/HCPCS: 36416; 43235; 82962; 96360; J2704; J7030

== ENCOUNTER 2020-08-24 15:46 | Emergency (ER) | payer MEDICARE, SELFPAY ==
[2020-08-24 16:01] VITALS: BP 135/82; PULSE 80; RESP 16; TEMP 36.3; O2SAT 96; BMI 23.0
--- NOTE | 2020-08-24 16:07 | ECG_ITS ---
[facility] Test Date: 2020-08-24 Pat Name: Pranav Johnson Department: Room: Gender: Male Retread Builder: : 1960 Requested By: Antonio Barahona Order Number: [id number] Nina MD: Patrick Clark M.D. Measurements Intervals [place] Rate: 62 P: 56 ND: 146 QRS: 37 QRSD: 93 T: 56 QT: 395 QTc: 404 Interpretive Statements SINUS RHYTHM Compared to ECG 04/12/2015 07:05:01 Atrial flutter no longer present ST (T wave) deviation no longer present Electronically Signed On 08-24-2020 18:21:31 CDT by Patrick Clark M.D. [id number]
[2020-08-24] MEDS: ondansetron 2 mg/ML SDV 2 mL 4 MG IVP (16:29)
[2020-08-24] MEDS: sodium chloride 0.9% 1,000 ML 999 ML IV ×2 (16:29→16:38)
[2020-08-24 16:40] VITALS: BP 122/73; PULSE 66; RESP 16; O2SAT 97
[2020-08-24 16:41] LABS: Basophils # 0.1 10^3/uL (0.0-0.1); Basophils % 0.6 %; Eosinophils # 0.3 10^3/uL (0.0-0.8); Eosinophils % 2.3 %; Hematocrit 46.9 % (42.0-52.0); Hemoglobin 15.4 g/dL (11.7-16.6); Lymphocytes # 1.5 10^3/uL (0.8-4.8); Lymphocytes % 13.7 %; Mean Corpuscular HGB Conc 32.8 g/dL (30.0-36.0); Mean Corpuscular Hemoglobin 28.6 pg (28.0-34.0); Mean Corpuscular Volume 87.2 fL (80-94); Mean Platelet Volume 11.1 fL (7.4-10.4); Monocytes # 0.8 10^3/uL (0.2-0.9); Monocytes % 7.6 %; Neutrophils % 75.3 %; Nucleated Red Blood Cells % 0 %; Platelet Count 199 10^3/cmm (130-400); Red Blood Count 5.38 10^6/uL (4.1-5.3); Red Cell Distribution Width 13.2 % (12.1-15.1); White Blood Count 10.8 10^3/uL (4.0-10.0)
--- NOTE | 2020-08-24 16:58 | ED_ITS ---
HPI - Abdominal Pain General: Chief Complaint: Abdominal Pain Stated Complaint: STATES PANCREAS PROBLEMS Time Seen by Provider: 08/24/20 16:07 History of Present Illness: HPI narrative: 60-year-old male with a history of pancreatitis recurrent. He previous that his gallbladder out he has had multiple stents in the past and talking to him he has an appointment scheduled with a GI doctor for an evaluation in [place]. His description it sounds like they are planning on doing a sphincterotomy. 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 He does not remember any particular trigger food he ate yesterday but he has noticed that he has increasing frequency of these episodes. MD elicited complaint: abdominal pain Pertinent past history: other (Pancreatitis/? Sphincter of Oddi disease) Onset (ago): year(s) Pain Consistency: constant Location: Epigastric and LUQ Severity: severe Quality: cramping Radiation: none Migration to: no migration Exacerbating factors: eating Relieving factors: nothing Associated Symptoms: Reports anorexia, bloating, GI cramping and poor appetite; Denies belching, change in bowel habits, change in stool character, chills, coffee ground emesis, constipation, diarrhea, dyspepsia, dysuria, excessive flatus, fever(s), heartburn, hematochezia, hematuria, hematemesis, fecal incontinence, loose stools, melena, nausea, syncope and vomiting Review of Systems Const: Denies: fever(s) or chills ENMT: Denies: throat pain, ear or mastoid pain, nasal discharge or nasal congestion Card: Denies: syncope Resp: Denies: dyspnea, productive cough or non-productive cough GI: Reports: bloating and GI cramping; Denies: nausea, vomiting, hematemesis, coffee ground emesis, heartburn, diarrhea, constipation, belching, excessive flatus, fecal incontinence, change in bowel habits, change in stool character, hematochezia or melena : Denies: dysuria or hematuria Skin/Breast: Denies: rash or pruritus PFS ED PFSH: Medical History (Updated 08/24/20 @ 18:18 by Antonio Martin DO) Acute pancreatitis Diabetes GERD (gastroesophageal reflux disease) Hyperlipidemia Idiopathic chronic pancreatitis Insomnia Presence of pancreatic duct stent PTSD (post-traumatic stress disorder) Surgical History History of back surgery S/P cholecystectomy Social History Smoking and tobacco status: current every day smoker cigarettes Packs smoked per day: 1 Alcohol intake: never Physical Exam Const: COMMON NORMALS: no acute distress GENERAL APPEARANCE: cooperative and comfortable ORIENTATION/CONSCIOUSNESS: Yes awake, Yes oriented to person, Yes oriented to place and Yes oriented to time HENMT: COMMON NORMALS: normocephalic, atraumatic, hearing grossly normal bilaterally and external ears normal HEAD & SCALP: normocephalic and atraumatic EXTERNAL EAR: Yes external ears normal Neck/C-Spine: COMMON NORMALS: no JVD Resp: COMMON NORMALS: normal respiratory effort, No retractions, No use of accessory muscles and clear to auscultation bilaterally AUSCULTATION: clear to auscultation bilaterally Cardio: COMMON NORMALS: no JVD, regular rate, regular rhythm and No murmurs present (Cardio) RATE: regular rate RHYTHM: regular rhythm GI: COMMON NORMALS: No hepatosplenomegaly present AUSCULTATION: Yes normoactive bowel sounds PALPATION: Yes Tenderness to palpation present (GI) Details: LUQ, No Guarding due to palpation present (GI) and Yes No hepatosplenomegaly present Extremity: COMMON NORMALS: normal to inspection, capillary refill normal, no clubbing, cyanosis or edema, no calf tenderness and no pedal edema Neuro: SENSORIUM/ORIENTATION: Yes oriented to person, Yes oriented to place and Yes oriented to time Skin: COMMON NORMALS: no rashes or lesions noted GENERAL SKIN EXAM: no rashes or lesions noted Course Vital Signs: Vital signs: Vital Signs Temperature 97.3 F L 08/24/20 16:01 Pulse Rate 69 08/24/20 18:53 Respiratory Rate 16 08/24/20 18:53 Blood Pressure 112/76 08/24/20 18:53 Pulse Oximetry 96 08/24/20 18:53 MDM - Abdominal Pain MDM Narrative: Medical decision making narrative: Patient improved with pain medications. He did not fill the last hydrocodone prescription he was given. Called and discussed with the clinic he is to see in a few days in [place]. They agree that we tried to get him up to [place] today they would not likely be able to get the ERCP done any sooner. His pain is better he is comfortable going home discussed he is doing clear liquids only until he is seen in for the ERC. given promethazine hydrocodone at discharge. Reviewed laboratory tests with him his lipase is slightly elevated but much less than it has been in the past. He was given IV fluids as well and discharged home. Return if pain becomes uncontrollable Lab Data: Labs: Lab Results 08/24/20 08/24/20 08/24/20 Range/Units 16:30 16:30 17:30 WBC 10.8 H (4.0-10.0) 10^3/ uL RBC 5.38 H (4.1-5.3) 10^6/u L Hgb 15.4 (11.7-16.6) g/dL Hct 46.9 (42.0-52.0) % MCV 87.2 (80-94) fL MCH 28.6 (28.0-34.0) pg MCHC 32.8 (30.0-36.0) g/dL RDW 13.2 (12.1-15.1) % Plt Count 199 (130-400) 10^3/c mm MPV 11.1 H (7.4-10.4) fL Neut % (Auto) 75.3 % Lymph % (Auto) 13.7 % [place] % (Auto) 7.6 % Eos % (Auto) 2.3 % Baso % (Auto) 0.6 % Neut # (Auto) 8.10 H (1.8-7.7) 10^3/u L Lymph # (Auto) 1.5 (0.8-4.8) 10^3/u L [place] # (Auto) 0.8 (0.2-0.9) 10^3/u L Eos # (Auto) 0.3 (0.0-0.8) 10^3/u L Baso # (Auto) 0.1 (0.0-0.1) 10^3/u L Nucleated RBC % (a uto) 0 % Nucleated RBCs # 0.0 /100WBC Sodium 137 (136-145) mmol/L Potassium 4.5 (3.5-5.1) mmol/L Chloride 100 (98-107) mmol/L Carbon Dioxide 27 (22-29) mmol/L Anion Gap 14.5 (5-19) BUN 16 (8-23) mg/dL Creatinine 0.7 (0.7-1.2) mg/dL GFR Calculation 115.0 (90-130) mL/min Glucose 299 H (65-115) mg/dL Calculated Osmolal ity 296 H (285-295) mOsm/k g Calcium 8.8 (8.5-10.5) mg/dL Total Bilirubin 0.4 (0.15-1.2) mg/dL AST 13 (0-40) U/L ALT 8 (0-41) U/L Alkaline Phosphata se 97 (40-130) IU/L Total Protein 7.1 (6.6-8.7) g/dL Albumin 4.2 (3.5-5.2) g/dL Globulin 2.9 (1.3-4.6) g/dL Lipase 118 H (13-60) U/L Urine Color Yellow (Yellow) Urine Appearance Clear (CLEAR) Urine pH 5 (5-7) Ur Specific Gravit y 1.020 (1.005-1.030) Urine Protein Neg (Negative) Urine Glucose (UA) 4+ H (Normal) Urine Ketones Negative (Negative) Urine Blood Neg (Negative) Urine Nitrate Negative (Negative) Urine Bilirubin Neg (Negative) Urine Urobilinogen Norm (Negative) mg/dL Ur Leukocyte Rachel ase Negative (Negative) Discharge Plan Discharge Patient Disposition: Home Clinical Impression: Chronic pancreatitis, Thrombocytopenia Condition: Stable Prescriptions: New promethazine 25 mg tablet 25 mg PO Q6H PRN (Reason: nausea and vomiting) Qty: 20 RF: 0 hydrocodone-acetaminophen 5-325 mg tablet 1 tab PO Q6H PRN (Reason: pain) Qty: 25 RF: 0 No Action fluticasone propionate 50 mcg/actuation spray,suspension 1 spray INTRANASAL BID@0800,2000 PRN (Reason: Allergic Symptoms) RF: 0 (DME) FreeStyle Lite Strips Strip See Rx Instructions .ROUTE .MEDSUPPLY Qty: 10 RF: 11 (DME) blood-glucose meter [FreeStyle [place]] Kit See Rx Instructions .ROUTE .MEDSUPPLY Qty: 1 RF: 0 lovastatin 40 mg tablet 40 mg PO DAILY@1900 RF: 0 metformin 1,000 mg tablet 1,000 mg PO BID@08,20 RF: 0 pregabalin 50 mg capsule 50 mg PO BID@08,20 RF: 0 Creon 24,000-76,000 -120,000 unit capsule,delayed release(DR/EC) 2 cap PO BID@0800,1999 RF: 0 polyethylene glycol 3350 [Miralax] 17 gram/dose powder 17 g PO DAILY PRN (Reason: constipation) Qty: 119 RF: 0 pantoprazole 40 mg tablet,delayed release (DR/EC) 40 mg PO DAILY RF: 0 Discharge Orders: Discharge ED (Routine); Ordered 08/24/20 Ordered By: Antonio Martin Referrals: Hector Flores DO [Primary Care Provider] - Discharge Diet: Usual diet Discharge Activity: Resume usual activity Patient Instructions: Opioid Safety Coding Level of Care Code ED Floor Winder for Lig Fwd Exam Comprehensive
[2020-08-24 17:02] VITALS: RESP 16
[2020-08-24] MEDS: HYDROmorphone 1 mg/mL INJ 1 mL IVP ×2 (17:02→18:41)
[2020-08-24 17:37] LABS: Add Urine Microscopic? NO; Charge for UA Resulting for Rev
[2020-08-24 17:50] LABS: Alanine Aminotransferase 8 U/L (0-41); Albumin Level 4.2 g/dL (3.5-5.2); Alkaline Phosphatase 97 IU/L (40-130); Blood Urea Nitrogen 16 mg/dL (8-23); Calcium 8.8 mg/dL (8.5-10.5); Carbon Dioxide 27 mmol/L (22-29); Chloride 100 mmol/L (98-107); Globulin 2.9 g/dL (1.3-4.6); Glucose 299 mg/dL (65-115); Lipase 118 U/L (13-60); Osmolality Calculated 296 mOsm/kg (285-295); Sodium 137 mmol/L (136-145); Total Bilirubin 0.4 mg/dL (0.15-1.2); Total Protein 7.1 g/dL (6.6-8.7)
[2020-08-24 17:53] LABS: Anion Gap 14.5 (5-19); Aspartate Amino Transferase 13 U/L (0-40); Potassium 4.5 mmol/L (3.5-5.1)
[2020-08-24 17:56] LABS: Bilirubin Urine Neg (Negative); Blood Urine Neg (Negative); Glucose Urine UA 4+ (Normal); Ketones Urine Negative (Negative); Leukocyte Esterase Urine Negative (Negative); Nitrate Urine Negative (Negative); Protein Urine Neg (Negative); Urine Appearance Clear (CLEAR); Urine Color Yellow (Yellow); Urobilinogen Urine Norm (Negative); pH Urine 5 (5-7)
[2020-08-24 18:04] VITALS: BP 106/69; PULSE 57; RESP 15; O2SAT 98
[2020-08-24 18:41] VITALS: RESP 16
[2020-08-24 18:53] VITALS: BP 112/76; PULSE 69; RESP 16; O2SAT 96
== END 2020-08-24 18:54 | disposition home or self-care (01) ==
PROVIDERS: Emergency Provider Family Medicine; PCP Family Medicine
DX: K86.1 Other chronic pancreatitis (principal); D69.6 Thrombocytopenia, unspecified; Z79.84 Long term (current) use of oral hypoglycemic drugs; E11.9 Type 2 diabetes mellitus without complications; E78.5 Hyperlipidemia, unspecified; F17.210 Nicotine dependence, cigarettes, uncomplicated
CPT/HCPCS: 80053; 81003; 83690; 85025; 93005; 96361; 96374; 96375; 96376; 99284; J1170; J2405; J7030

== ENCOUNTER → 2020-09-06 10:29 | Outpatient (BNVA) | payer MEDICARE, SELFPAY | PROVIDERS: PCP Family Medicine; Visit Provider Family Medicine | DX: E11.9 Type 2 diabetes mellitus without complications (principal); F32.9 Major depressive disorder, single episode, unspecified; R10.13 Epigastric pain; K86.1 Other chronic pancreatitis; G47.00 Insomnia, unspecified | CPT/HCPCS: 83036 ==

== ENCOUNTER 2020-09-20 04:02 | Emergency (ER) | payer MEDICARE, SELFPAY ==
[2020-09-20] VITALS (8 sets, daily range): BP systolic 99–127; BP diastolic 66–80; PULSE 63–76; RESP 16–22; TEMP 36.7; O2SAT 96–99; BMI 23.0
[2020-09-20] MEDS: sodium chloride 0.9% 1,000 ML 999 ML IV (04:30)
[2020-09-20] MEDS: ondansetron 2 mg/ML SDV 2 mL 4 MG IVP (04:35)
[2020-09-20] MEDS: HYDROmorphone 1 mg/mL INJ 1 mL IVP (04:38)
[2020-09-20 04:49] LABS: Basophils # 0.1 10^3/uL (0.0-0.1); Basophils % 0.8 %; Eosinophils # 0.4 10^3/uL (0.0-0.8); Eosinophils % 3.8 %; Hematocrit 50.7 % (42.0-52.0); Hemoglobin 16.4 g/dL (11.7-16.6); Lymphocytes # 2.5 10^3/uL (0.8-4.8); Mean Corpuscular HGB Conc 32.3 g/dL (30.0-36.0); Mean Corpuscular Hemoglobin 28.6 pg (28.0-34.0); Mean Corpuscular Volume 88.5 fL (80-94); Mean Platelet Volume 11.9 fL (7.4-10.4); Monocytes # 0.6 10^3/uL (0.2-0.9); Neutrophils # 6.25 10^3/uL (1.8-7.7); Neutrophils % 63.8 %; Nucleated Red Blood Cells % 0 %; Platelet Count 191 10^3/cmm (130-400); Red Blood Count 5.73 10^6/uL (4.1-5.3); Red Cell Distribution Width 12.9 % (12.1-15.1); White Blood Count 9.8 10^3/uL (4.0-10.0)
--- NOTE | 2020-09-20 04:52 | W.ED.ABDPA2 ---
Documented by User: Be Rivera MD 09/20/20 04:57 HPI - Abdominal Pain General: Chief Complaint: Abdominal Pain Stated Complaint: Pain Pancreas Time Seen by Provider: 09/20/20 04:12 Source: patient Mode of arrival: ambulatory Limitations: no limitations History of Present Illness: HPI narrative: 60-year-old male has a history of chronic pancreatitis. He just had 2 pancreatic stents placed little over 2 weeks ago in [place]. He states he been doing well started having abdominal pain again over the last 2 days. States pain is sharp in nature and rates it a 7 out of 10. He has had some nausea and vomiting. He denies any worsening improving factors. Associated Symptoms: Denies chills, dysuria and fever(s) Review of Systems Const: Denies: fever(s), chills, body aches or change in appetite Eyes: Denies: blurry vision or eye discomfort ENMT: Denies: throat pain or dental pain Card: Denies: chest pain Resp: Denies: dyspnea GI: Reports: abdominal pain : Denies: dysuria Musc: Denies: neck pain or back pain Skin/Breast: Denies: rash Neuro: Denies: headache(s) Psych: Denies: depression Ian/Lymph: Denies: easy bruising All/Imm: Denies: urticaria PFSH ED PFSH: Medical History Acute pancreatitis Diabetes GERD (gastroesophageal reflux disease) Hyperlipidemia Idiopathic chronic pancreatitis Insomnia Presence of pancreatic duct stent PTSD (post-traumatic stress disorder) Surgical History (Updated 09/20/20 @ 09:45 by Antonio Martin DO) History of back surgery S/P cholecystectomy Social History Smoking and tobacco status: current every day smoker cigarettes Packs smoked per day: 1 Alcohol intake: never Physical Exam Const: COMMON NORMALS: no acute distress, patient oriented x3 and healthy appearing HENMT: COMMON NORMALS: normocephalic and atraumatic HEAD & SCALP: normocephalic and atraumatic Eye: COMMON NORMALS: Equal, round and reactive pupils present and EOMs intact bilaterally PUPIL: Yes Equal, round and reactive pupils present Neck/C-Spine: COMMON NORMALS: full ROM and supple Chest: COMMONS NORMALS: normal inspection of the chest and normal palpation of entire chest wall Resp: COMMON NORMALS: normal respiratory effort, No retractions, No use of accessory muscles and clear to auscultation bilaterally AUSCULTATION: clear to auscultation bilaterally Cardio: COMMON NORMALS: regular rate, regular rhythm and No murmurs present (Cardio) RATE: regular rate RHYTHM: regular rhythm GI: COMMON NORMALS: Normal to inspection, nondistended, normoactive bowel sounds present, Soft to palpation, non-tender and no masses PALPATION: Yes Soft to palpation Extremity: COMMON NORMALS: normal to inspection and full ROM Neuro: COMMON NORMALS: patient oriented x3, moves all extremities and no focal motor deficits Psych: COMMON NORMALS: mental status grossly normal, Normal thought process present and cooperative THOUGHT PROCESS: Normal thought process present Skin: COMMON NORMALS: no rashes or lesions noted and no wounds GENERAL SKIN EXAM: no rashes or lesions noted Course Vital Signs: Vital signs: Vital Signs Temperature 98.1 F 09/20/20 04:06 Pulse Rate 63 09/20/20 10:17 Respiratory Rate 16 09/20/20 10:17 Blood Pressure 102/67 09/20/20 10:17 Pulse Oximetry 98 09/20/20 10:17 MDM - Abdominal Pain Lab Data: Labs: Lab Results 09/20/20 09/20/20 Range/Units 04:35 04:35 WBC 9.8 (4.0-10.0) 10^3/ uL RBC 5.73 H (4.1-5.3) 10^6/u L Hgb 16.4 (11.7-16.6) g/dL Hct 50.7 (42.0-52.0) % MCV 88.5 (80-94) fL MCH 28.6 (28.0-34.0) pg MCHC 32.3 (30.0-36.0) g/dL RDW 12.9 (12.1-15.1) % Plt Count 191 (130-400) 10^3/c mm MPV 11.9 H (7.4-10.4) fL Neut % (Auto) 63.8 % Lymph % (Auto) 25.0 % [place] % (Auto) 6.0 % Eos % (Auto) 3.8 % Baso % (Auto) 0.8 % Neut # (Auto) 6.25 (1.8-7.7) 10^3/u L Lymph # (Auto) 2.5 (0.8-4.8) 10^3/u L [place] # (Auto) 0.6 (0.2-0.9) 10^3/u L Eos # (Auto) 0.4 (0.0-0.8) 10^3/u L Baso # (Auto) 0.1 (0.0-0.1) 10^3/u L Nucleated RBC % (a uto) 0 % Nucleated RBCs # 0.0 /100WBC Sodium 137 (136-145) mmol/L Potassium 4.1 (3.5-5.1) mmol/L Chloride 99 (98-107) mmol/L Carbon Dioxide 24 (22-29) mmol/L Anion Gap 18.1 (5-19) BUN 17 (8-23) mg/dL Creatinine 0.7 (0.7-1.2) mg/dL GFR Calculation 115.0 (90-130) mL/min Glucose 284 H (65-115) mg/dL Calculated Osmolal ity 296 H (285-295) mOsm/k g Calcium 9.0 (8.5-10.5) mg/dL Total Bilirubin 0.3 (0.15-1.2) mg/dL AST 8 (0-40) U/L ALT 9 (0-41) U/L Alkaline Phosphata se 109 (40-130) IU/L Total Protein 7.0 (6.6-8.7) g/dL Albumin 4.5 (3.5-5.2) g/dL Globulin 2.5 (1.3-4.6) g/dL Lipase 169 H (13-60) U/L Discharge Plan Discharge Patient Disposition: Home Clinical Impression: Idiopathic chronic pancreatitis, Presence of pancreatic duct stent, Type 2 diabetes mellitus, Tobacco abuse, S/P cholecystectomy Condition: Stable Prescriptions: New hydrocodone-acetaminophen 5-325 mg tablet 1 tab PO Q6H PRN (Reason: pain) Qty: 15 RF: 0 promethazine 25 mg tablet 25 mg PO Q6H PRN (Reason: nausea and vomiting) Qty: 14 RF: 0 No Action fluticasone propionate 50 mcg/actuation spray,suspension 1 spray INTRANASAL BID@0800,2000 PRN (Reason: Allergic Symptoms) RF: 0 (DME) FreeStyle Lite Strips Strip See Rx Instructions .ROUTE .MEDSUPPLY Qty: 10 RF: 11 (DME) blood-glucose meter [FreeStyle [place]] Kit See Rx Instructions .ROUTE .MEDSUPPLY Qty: 1 RF: 0 ondansetron 4 mg tablet,disintegrating 4 mg PO Q6H PRN (Reason: nausea and vomiting) RF: 0 lorazepam 1 mg tablet 0.5 mg PO Q12H PRN (Reason: anxiety) Qty: 15 RF: 0 Creon 24,000-76,000 -120,000 unit capsule,delayed release(DR/EC) 2 cap PO .COMPLEX Qty: 180 RF: 0 lovastatin 40 mg tablet 40 mg PO DAILY@1900 RF: 0 metformin 1,000 mg tablet 1,000 mg PO BID@08,20 RF: 0 pregabalin 50 mg capsule 50 mg PO BID@08,20 RF: 0 polyethylene glycol 3350 [Miralax] 17 gram/dose powder 17 g PO DAILY PRN (Reason: constipation) Qty: 119 RF: 0 pantoprazole 40 mg tablet,delayed release (DR/EC) 40 mg PO DAILY RF: 0 promethazine 25 mg tablet 25 mg PO Q6H PRN (Reason: nausea and vomiting) Qty: 20 RF: 0 hydrocodone-acetaminophen 5-325 mg tablet 1 tab PO Q6H PRN (Reason: pain) Qty: 25 RF: 0 Discharge Orders: Discharge ED (Routine); Ordered 09/20/20 Ordered By: Antonio Martin Referrals: Hector Flores DO [Primary Care Provider] - Discharge Diet: Clear Liquid Discharge Activity: Resume usual activity Patient Instructions: Opioid Safety Sign Out Sign Out Data: Patient Sign Out occurred on 09/20/20 at 06:03. Patient's care was discussed, and care was transferred from to Antonio Martin DO. Coding Level of Care Code ED Reed Polisher for Chg Fwd Exam Comprehensive Documented by User: Antonio Martin DO 09/20/20 16:35 HPI - Abdominal Pain General: Chief Complaint: Abdominal Pain Stated Complaint: Pain Pancreas Time Seen by Provider: 09/20/20 04:12 PFSH ED PFSH: Medical History Acute pancreatitis Diabetes GERD (gastroesophageal reflux disease) Hyperlipidemia Idiopathic chronic pancreatitis Insomnia Presence of pancreatic duct stent PTSD (post-traumatic stress disorder) Surgical History (Updated 09/20/20 @ 09:45 by Antonio Martin DO) History of back surgery S/P cholecystectomy Social History Smoking and tobacco status: current every day smoker cigarettes Packs smoked per day: 1 Alcohol intake: never Course Vital Signs: Vital signs: Vital Signs Temperature 98.1 F 09/20/20 04:06 Pulse Rate 63 09/20/20 10:17 Respiratory Rate 16 09/20/20 10:17 Blood Pressure 102/67 09/20/20 10:17 Pulse Oximetry 98 09/20/20 10:17 MDM - Abdominal Pain MDM Narrative: Medical decision making narrative: Assumed care at change of shift from Dr. Rivera. No acute pancreatitis on CT. Was a prolonged wait getting the CT read evidently is sent to [facility] but they could not find it when we questioned it ultimately one of our radiologist read it. There is a mild elevation of the lipase. Flakito with the patient he has a primary care doctor in [place] he likely had something closer to [place] lanes we will try to have case management get him established with Dr. Wlison. Lab Data: Labs: Lab Results 09/20/20 09/20/20 Range/Units 04:35 04:35 WBC 9.8 (4.0-10.0) 10^3/ uL RBC 5.73 H (4.1-5.3) 10^6/u L Hgb 16.4 (11.7-16.6) g/dL Hct 50.7 (42.0-52.0) % MCV 88.5 (80-94) fL MCH 28.6 (28.0-34.0) pg MCHC 32.3 (30.0-36.0) g/dL RDW 12.9 (12.1-15.1) % Plt Count 191 (130-400) 10^3/c mm MPV 11.9 H (7.4-10.4) fL Neut % (Auto) 63.8 % Lymph % (Auto) 25.0 % [place] % (Auto) 6.0 % Eos % (Auto) 3.8 % Baso % (Auto) 0.8 % Neut # (Auto) 6.25 (1.8-7.7) 10^3/u L Lymph # (Auto) 2.5 (0.8-4.8) 10^3/u L [place] # (Auto) 0.6 (0.2-0.9) 10^3/u L Eos # (Auto) 0.4 (0.0-0.8) 10^3/u L Baso # (Auto) 0.1 (0.0-0.1) 10^3/u L Nucleated RBC % (a uto) 0 % Nucleated RBCs # 0.0 /100WBC Sodium 137 (136-145) mmol/L Potassium 4.1 (3.5-5.1) mmol/L Chloride 99 (98-107) mmol/L Carbon Dioxide 24 (22-29) mmol/L Anion Gap 18.1 (5-19) BUN 17 (8-23) mg/dL Creatinine 0.7 (0.7-1.2) mg/dL GFR Calculation 115.0 (90-130) mL/min Glucose 284 H (65-115) mg/dL Calculated Osmolal ity 296 H (285-295) mOsm/k g Calcium 9.0 (8.5-10.5) mg/dL Total Bilirubin 0.3 (0.15-1.2) mg/dL AST 8 (0-40) U/L ALT 9 (0-41) U/L Alkaline Phosphata se 109 (40-130) IU/L Total Protein 7.0 (6.6-8.7) g/dL Albumin 4.5 (3.5-5.2) g/dL Globulin 2.5 (1.3-4.6) g/dL Lipase 169 H (13-60) U/L Discharge Plan Discharge Patient Disposition: Home Clinical Impression: Idiopathic chronic pancreatitis, Presence of pancreatic duct stent, Type 2 diabetes mellitus, Tobacco abuse, S/P cholecystectomy Condition: Stable Prescriptions: New hydrocodone-acetaminophen 5-325 mg tablet 1 tab PO Q6H PRN (Reason: pain) Qty: 15 RF: 0 promethazine 25 mg tablet 25 mg PO Q6H PRN (Reason: nausea and vomiting) Qty: 14 RF: 0 No Action fluticasone propionate 50 mcg/actuation spray,suspension 1 spray INTRANASAL BID@0800,2000 PRN (Reason: Allergic Symptoms) RF: 0 (DME) FreeStyle Lite Strips Strip See Rx Instructions .ROUTE .MEDSUPPLY Qty: 10 RF: 11 (DME) blood-glucose meter [FreeStyle [place]] Kit See Rx Instructions .ROUTE .MEDSUPPLY Qty: 1 RF: 0 ondansetron 4 mg tablet,disintegrating 4 mg PO Q6H PRN (Reason: nausea and vomiting) RF: 0 lorazepam 1 mg tablet 0.5 mg PO Q12H PRN (Reason: anxiety) Qty: 15 RF: 0 Creon 24,000-76,000 -120,000 unit capsule,delayed release(DR/EC) 2 cap PO .COMPLEX Qty: 180 RF: 0 lovastatin 40 mg tablet 40 mg PO DAILY@1900 RF: 0 metformin 1,000 mg tablet 1,000 mg PO BID@08,20 RF: 0 pregabalin 50 mg capsule 50 mg PO BID@08,20 RF: 0 polyethylene glycol 3350 [Miralax] 17 gram/dose powder 17 g PO DAILY PRN (Reason: constipation) Qty: 119 RF: 0 pantoprazole 40 mg tablet,delayed release (DR/EC) 40 mg PO DAILY RF: 0 promethazine 25 mg tablet 25 mg PO Q6H PRN (Reason: nausea and vomiting) Qty: 20 RF: 0 hydrocodone-acetaminophen 5-325 mg tablet 1 tab PO Q6H PRN (Reason: pain) Qty: 25 RF: 0 Discharge Orders: Discharge ED (Routine); Ordered 09/20/20 Ordered By: Antonio Martin Referrals: Hector Flores DO [Primary Care Provider] - Discharge Diet: Clear Liquid Discharge Activity: Resume usual activity Patient Instructions: Opioid Safety Sign Out Sign Out Data: Patient Sign Out occurred on 09/20/20 at 06:03. Patient's care was discussed, and care was transferred from to Antonio Martin DO. Coding Level of Care Code ED Reed Polisher for Lilia Fwd Exam Comprehensive
[2020-09-20 05:08] LABS: Alanine Aminotransferase 9 U/L (0-41); Albumin Level 4.5 g/dL (3.5-5.2); Alkaline Phosphatase 109 IU/L (40-130); Aspartate Amino Transferase 8 U/L (0-40); Blood Urea Nitrogen 17 mg/dL (8-23); Carbon Dioxide 24 mmol/L (22-29); Chloride 99 mmol/L (98-107); Globulin 2.5 g/dL (1.3-4.6); Glucose 284 mg/dL (65-115); Lipase 169 U/L (13-60); Osmolality Calculated 296 mOsm/kg (285-295); Sodium 137 mmol/L (136-145); Total Bilirubin 0.3 mg/dL (0.15-1.2)
[2020-09-20 05:09] LABS: Anion Gap 18.1 (5-19); Potassium 4.1 mmol/L (3.5-5.1)
--- NOTE | 2020-09-20 05:11 | CT_ITS ---
WS: [id number] CT ABDOMEN PELVIS TECHNIQUE: Contrast-enhanced CT of the abdomen and pelvis with coronal and sagittal reformatted image s. CLINICAL INFORMATION: abd pain COMPARISON: 07/30/2020 and 06/13/2020 DLP: 1252.[address] scans at [facility] use at least one of these dose optimization techniques: automat ed exposure control; mA and/or kV adjustment per patient size (includes targeted exams where dose is matched to clinical indication); or iterative reconstruction. FINDINGS: Common bile duct and pancreatic stents. Previously described pancreatitis has improved with improved peripancreatic inflammatory stranding. Tiny amount of residual edema and induration about the pancrea tic head. A few reactive lymph nodes have improved. Pancreatic head calcification. Common bile duct a nd pancreatic duct appear decompressed and stents appear unchanged. Mild intrahepatic biliary ductal dilatation. Adrenal glands are normal. Normal renal parenchymal enhancement. No hydronephrosis. Normal GE junctio n. Lung bases are well aerated. Sigmoid constipation similar to previous. A few air-fluid levels in n ormal caliber small bowel in the midabdomen. No evidence of high-grade obstruction. Normal caliber ab dominal aorta. CT/CT abdomen pelvis w con* [id number] IMPRESSION: 1. Common bile duct and pancreatic ductal stents appear in good position and u nchanged from previous. Small amount of incidental pneumobilia. 2. Previously described pancreatitis has improved with a tiny amount of residu al pancreatic head edema and induration. No peripancreatic fluid collections or pseudocysts. A few improved reactive lymph nodes. 3. Common bile duct and pancreatic duct appear decompressed. 4. No hydronephrosis in either kidney. Normal renal parenchymal enhancement. 5. Sigmoid constipation unchanged from previous. 6. A few air-fluid levels in normal caliber small bowel in the midabdomen. No evidence of high-grade obstruction. Notified Antonio Martin MD at 09/20/2020 9:38 AM.
[2020-09-20] MEDS: iohexol 300 mg/mL 100 mL Btl IV (05:25)
[2020-09-20] MEDS: HYDROmorphone 1 mg/mL INJ 1 mL 0.5 MG IVP (07:57)
--- NOTE | 2020-09-25 15:42 | DCPLANNER ---
is/it project manager had message to schedule a follow up appointment for patient with Dr. Wilson. is/it project manager called the office of Dr. Wilson, spoke with Rayna, gave clinic patients information. A follow up appointment was scheduled for , September 28, 2020 at 10:[address] Wilson. Clinic will call patient with appointment information.
--- NOTE | 2020-10-27 13:59 | DCPLANNER ---
Patient had a follow up appointment scheduled for 09.28.[address] Wilson - patient did attend appointment.
== END 2020-09-20 10:16 | disposition home or self-care (01) ==
PROVIDERS: Emergency Medicine; Emergency Provider Family Medicine; PCP Family Medicine
DX: K86.1 Other chronic pancreatitis (principal); Z96.89 Presence of other specified functional implants; E11.9 Type 2 diabetes mellitus without complications; F17.210 Nicotine dependence, cigarettes, uncomplicated; Z90.49 Acquired absence of other specified parts of digestive tract; Z79.84 Long term (current) use of oral hypoglycemic drugs; E78.5 Hyperlipidemia, unspecified
CPT/HCPCS: 74177; 80053; 83690; 85025; 96361; 96374; 96375; 96376; 99284; J1170; J2405; J7030; Q9967

== ENCOUNTER → 2020-09-28 11:17 | Outpatient (BNVA) | payer MEDICARE, SELFPAY | PROVIDERS: PCP Family Medicine; Visit Provider Internal Medicine | DX: E11.9 Type 2 diabetes mellitus without complications (principal); Z96.89 Presence of other specified functional implants; K86.1 Other chronic pancreatitis; D75.1 Secondary polycythemia | CPT/HCPCS: 80053; 83036; 84443; 84681 ==

== ENCOUNTER 2020-11-19 06:34 | Emergency (ER) | payer MEDICARE, SELFPAY ==
[2020-11-19 07:18] VITALS: BP 107/74; PULSE 70; RESP 18; TEMP 36.2; O2SAT 99; BMI 23.0
[2020-11-19 07:25] VITALS: BP 107/74; PULSE 61; RESP 18; O2SAT 95
--- NOTE | 2020-11-19 07:26 | ED_ITS ---
HPI - Abdominal Pain General: Chief Complaint: Abdominal Pain Stated Complaint: PANCREATITIS , ABD PAIN Time Seen by Provider: 11/19/20 07:09 History of Present Illness: HPI narrative: Patient complains about a flareup of his pancreatitis. Patient was started on the insulin shots a week ago and his oral diabetic medication was stopped. Patient states his blood sugar this morning was 136. Patient said he has had some nausea and vomiting not able to keep fluids or food down last couple 3 days. Is having diarrhea. Said this feels like his past attacks. MD elicited complaint: abdominal pain Pertinent past history: other (Pancreatitis) Onset (ago): year(s) Pain Consistency: constant Location: [facility] Severity: moderate Quality: aching Exacerbating factors: eating Relieving factors: nothing Context: other (History of pancreatitis and diabetes) Associated Symptoms: Reports bloating, diarrhea, nausea, poor appetite and vom iting; Denies chills and fever(s) Review of Systems Const: Denies: fever(s), chills or body aches Eyes: Denies: change in vision or blurry vision ENMT: Denies: throat pain or nasal congestion Card: Denies: chest pain or dyspnea on exertion Resp: Denies: dyspnea, productive cough or non-productive cough GI: Reports: nausea, vomiting, diarrhea and bloating : Denies: difficulty urinating Musc: Denies: extremity pain Skin/Breast: Denies: rash Neuro: Denies: headache(s) Psych: Denies: anxiety or depression Ian/Lymph: Denies: easy bruising PFSH ED PFSH: Medical History Acute pancreatitis Diabetes GERD (gastroesophageal reflux disease) Hyperlipidemia Idiopathic chronic pancreatitis Insomnia Presence of pancreatic duct stent PTSD (post-traumatic stress disorder) Surgical History History of back surgery S/P cholecystectomy Social History Smoking and tobacco status: current every day smoker cigarettes Packs smoked per day: 1 Alcohol intake: never Physical Exam Const: COMMON NORMALS: no acute distress, average body habitus and patient oriented x3 HENMT: COMMON NORMALS: normocephalic HEAD & SCALP: normal to inspection and normocephalic FACE & SINUS: normal facial exam Eye: COMMON NORMALS: conjunctivae normal GENERAL EYE: appearance normal, both eyes and all related structures CONJUNCTIVA: Yes conjunctivae normal Neck/C-Spine: COMMON NORMALS: no JVD Chest: COMMONS NORMALS: normal inspection of the chest Resp: COMMON NORMALS: normal respiratory effort and clear to auscultation bilaterally AUSCULTATION: clear to auscultation bilaterally Cardio: COMMON NORMALS: no JVD, regular rate and regular rhythm RATE: regular rate RHYTHM: regular rhythm GI: COMMON NORMALS: Normal to inspection, nondistended, normoactive bowel sounds present INSPECTION: Yes normal to inspection AUSCULTATION: Yes Hypoactive bowel sounds present PALPATION: Yes Tenderness to palpation present (GI) Details: LLQ Extremity: COMMON NORMALS: normal to inspection and full ROM Neuro: COMMON NORMALS: patient oriented x3 Course Vital Signs: Vital signs: Vital Signs Temperature 97.1 F L 11/19/20 07:18 Pulse Rate 63 11/19/20 08:03 Respiratory Rate 17 11/19/20 08:03 Blood Pressure 103/65 11/19/20 08:03 Pulse Oximetry 96 11/19/20 08:03 MDM - Abdominal Pain MDM Narrative: Medical decision making narrative: Pancreatitis, abdominal pain. Patient has a history and frequent ER visits for pancreatitis. Lipase appears fairly good for his condition and compared to previous ones. Patient need of pain medication as he is out of his hydrocodone at home. Patient is also having some constipation which do not been taking laxatives for. Patient encourage drink fluids fiber take stool softener and laxative specially since placed back on hydrocodone. Patient was given some lactulose to help with stimulant bowels. Patient is follow-up primary care provider. Lab Data: Labs: Lab Results 11/19/20 11/19/20 Range/Units 07:25 07:25 WBC 10.6 H (4.0-10.0) 10^3/ uL RBC 5.92 H (4.1-5.3) 10^6/u L Hgb 16.8 H (11.7-16.6) g/dL Hct 51.9 (42.0-52.0) % MCV 87.7 (80-94) fl MCH 28.4 (28.0-34.0) pg MCHC 32.4 (30.0-36.0) g/dL RDW 13.2 (12.1-15.1) % Plt Count 300 (130-400) 10^3/c mm MPV 10.7 H (7.4-10.4) fL Neut % (Auto) 72.7 % Lymph % (Auto) 17.6 % [place] % (Auto) 6.1 % Eos % (Auto) 2.4 % Baso % (Auto) 0.7 % Neut # (Auto) 7.72 H (1.8-7.7) 10^3/u L Lymph # (Auto) 1.9 (0.8-4.8) 10^3/u L [place] # (Auto) 0.7 (0.2-0.9) 10^3/u L Eos # (Auto) 0.3 (0.0-0.8) 10^3/u L Baso # (Auto) 0.1 (0.0-0.1) 10^3/u L Nucleated RBC % (a uto) 0 % Nucleated RBCs # 0.0 /100WBC Sodium 136 (136-145) mmol/L Potassium 3.9 (3.5-5.1) mmol/L Chloride 96 L (98-107) mmol/L Carbon Dioxide 28 (22-29) mmol/L Anion Gap 15.9 (5-19) BUN 12 (8-23) mg/dL Creatinine 0.5 L (0.7-1.2) mg/dL GFR Calculation 169.6 H (90-130) mL/min Glucose 266 H (65-115) mg/dL Calculated Osmolal ity 291 (285-295) mOsm/k g Calcium 9.8 (8.5-10.5) mg/dL Total Bilirubin 0.5 (0.15-1.2) mg/dL AST 9 (0-40) U/L ALT 15 (0-41) U/L Alkaline Phosphata se 189 H (40-130) IU/L Total Protein 8.6 (6.6-8.7) g/dL Albumin 4.5 (3.5-5.2) g/dL Globulin 4.1 (1.3-4.6) g/dL Lipase 193 H (13-60) U/L Discharge Plan Discharge Patient Disposition: Home Clinical Impression: Pancreatitis Qualifiers: Chronicity: chronic Pancreatitis type: other Qualified Code(s): K86.1 - Other chronic pancreatitis Abdominal pain Qualifiers: Abdominal location: left upper quadrant Qualified Code(s): R10.12 - Left upper quadrant pain Constipated Qualifiers: Constipation type: drug induced constipation Qualified Code(s): K59.03 - Drug induced constipation Condition: Stable Prescriptions: New hydrocodone-acetaminophen 5-325 mg tablet 1 tab PO TID PRN (Reason: pain) Qty: 14 RF: 0 lactulose 20 gram/30 mL solution 20 g PO DAILY PRN (Reason: laxative effect) Qty: 600 RF: 0 No Action fluticasone propionate 50 mcg/actuation spray,suspension 1 spray INTRANASAL BID@0800,2000 PRN (Reason: Allergic Symptoms) RF: 0 (DME) FreeStyle Lite Strips Strip See Rx Instructions .ROUTE .MEDSUPPLY Qty: 10 RF: 11 (DME) blood-glucose meter [FreeStyle [place]] Kit See Rx Instructions .ROUTE .MEDSUPPLY Qty: 1 RF: 0 ondansetron 4 mg tablet,disintegrating 4 mg PO Q6H PRN (Reason: nausea and vomiting) RF: 0 lorazepam 1 mg tablet 0.5 mg PO Q12H PRN (Reason: anxiety) Qty: 15 RF: 0 Toujeo SoloStar U-300 Insulin 300 unit/mL (1.5 mL) insulin pen 20 unit SUBCUT DAILY Qty: 4.5 RF: 3 Creon 24,000-76,000 -120,000 unit capsule,delayed release(DR/EC) 2 cap PO .COMPLEX Qty: 180 RF: 2 pantoprazole 40 mg tablet,delayed release (DR/EC) 40 mg PO DAILY Qty: 30 RF: 5 lovastatin 40 mg tablet 40 mg PO DAILY@1900 RF: 0 pregabalin 50 mg capsule 50 mg PO BID@08,20 RF: 0 polyethylene glycol 3350 [Miralax] 17 gram/dose powder 17 g PO DAILY PRN (Reason: constipation) Qty: 119 RF: 0 hydrocodone-acetaminophen 5-325 mg tablet 1 tab PO Q6H PRN (Reason: pain) Qty: 15 RF: 0 promethazine 25 mg tablet 25 mg PO Q6H PRN (Reason: nausea and vomiting) Qty: 14 RF: 0 promethazine 25 mg tablet 25 mg PO Q6H PRN (Reason: nausea and vomiting) Qty: 20 RF: 0 hydrocodone-acetaminophen 5-325 mg tablet 1 tab PO Q6H PRN (Reason: pain) Qty: 25 RF: 0 Discharge Orders: Discharge ED (Routine); Ordered 11/19/20 Ordered By: Matt Castaneda Referrals: Polo Wilson MD [Primary Care Provider] - Discharge Diet: As Directed Discharge Activity: Increase activity as tolerated Patient Instructions: Pancreatitis (ED), Constipation (ED), Abdominal Pain (ED), Opioid Safety Activity Restrictions/Additional Instructions: Follow-up with medical provider as directed. Take medications as prescribed. Return to the ER or your medical provider if condition worsens. Please read and understand discharge instructions. If any questions ask please. Make sure that you take stool softener and laxative together with your pain medication. Increase water and fiber in your diet. Follow-up your family medical provider if no significant provement or you can return here. Coding Level of Care Code ED Rubber Tubing Backer for Lilia Fwd Exam Comprehensive
[2020-11-19 07:38] VITALS: RESP 18; O2SAT 97
[2020-11-19] MEDS: morphine 4 mg/mL SDV 1 mL IVP (07:38)
[2020-11-19] MEDS: ondansetron 2 mg/ML SDV 2 mL 4 MG IVP (07:38)
[2020-11-19] MEDS: sodium chloride 0.9% 1,000 ML 999 ML IV (07:38)
[2020-11-19 07:41] LABS: Basophils # 0.1 10^3/uL (0.0-0.1); Basophils % 0.7 %; Eosinophils # 0.3 10^3/uL (0.0-0.8); Eosinophils % 2.4 %; Hematocrit 51.9 % (42.0-52.0); Hemoglobin 16.8 g/dL (11.7-16.6); Lymphocytes # 1.9 10^3/uL (0.8-4.8); Lymphocytes % 17.6 %; Mean Corpuscular HGB Conc 32.4 g/dL (30.0-36.0); Mean Corpuscular Hemoglobin 28.4 pg (28.0-34.0); Mean Corpuscular Volume 87.7 fl (80-94); Mean Platelet Volume 10.7 fL (7.4-10.4); Monocytes # 0.7 10^3/uL (0.2-0.9); Monocytes % 6.1 %; Neutrophils # 7.72 10^3/uL (1.8-7.7); Neutrophils % 72.7 %; Nucleated Red Blood Cells % 0 %; Platelet Count 300 10^3/cmm (130-400); Red Blood Count 5.92 10^6/uL (4.1-5.3); Red Cell Distribution Width 13.2 % (12.1-15.1); White Blood Count 10.6 10^3/uL (4.0-10.0)
[2020-11-19 08:00] LABS: Alanine Aminotransferase 15 U/L (0-41); Albumin Level 4.5 g/dL (3.5-5.2); Alkaline Phosphatase 189 IU/L (40-130); Anion Gap 15.9 (5-19); Aspartate Amino Transferase 9 U/L (0-40); Blood Urea Nitrogen 12 mg/dL (8-23); Calcium 9.8 mg/dL (8.5-10.5); Carbon Dioxide 28 mmol/L (22-29); Chloride 96 mmol/L (98-107); Globulin 4.1 g/dL (1.3-4.6); Glomerular Filtration Rate 169.6 mL/min (90-130); Glucose 266 mg/dL (65-115); Lipase 193 U/L (13-60); Osmolality Calculated 291 mOsm/kg (285-295); Potassium 3.9 mmol/L (3.5-5.1); Sodium 136 mmol/L (136-145); Total Bilirubin 0.5 mg/dL (0.15-1.2); Total Protein 8.6 g/dL (6.6-8.7)
[2020-11-19 08:03] VITALS: BP 103/65; PULSE 63; RESP 17; O2SAT 96
== END 2020-11-19 08:18 | disposition home or self-care (01) ==
PROVIDERS: Emergency Provider Nurse Practitioner Family; PCP Internal Medicine
DX: K86.1 Other chronic pancreatitis (principal); K59.03 Drug induced constipation; E11.9 Type 2 diabetes mellitus without complications; E78.5 Hyperlipidemia, unspecified; F17.210 Nicotine dependence, cigarettes, uncomplicated
CPT/HCPCS: 80053; 83690; 85025; 96361; 96374; 96375; 99284; J2270; J2405; J7030

== ENCOUNTER 2020-12-19 05:01 | Emergency (ER) | payer MEDICARE, SELFPAY ==
[2020-12-19] VITALS (10 sets, daily range): BP systolic 111–133; BP diastolic 64–85; PULSE 53–67; RESP 15–18; TEMP 36.8–36.9; O2SAT 98–100; BMI 19.6
--- NOTE | 2020-12-19 05:17 | CTR_ITS ---
PROCEDURE INFORMATION: Exam: CT Abdomen And Pelvis With Contrast Exam date and time: 12/19/2020 5:17 AM Age: 60 years old Clinical indication: Pain; Prior surgery; Surgery date: <1 month; Surgery type: Pancreas stents; Additional info: Abd pain TECHNIQUE: Imaging protocol: Computed tomography of the abdomen and pelvis with contrast. Radiation optimization: All CT scans at this facility use at least one of these dose optimization techniques: automated exposure control; mA and/or kV adjustment per patient size (includes targeted exams where dose is matched to clinical indication); or iterative reconstruction. Contrast material: OMNI 300; Contrast volume: 95 ml; Contrast route: INTRAVENOUS (IV); COMPARISON: CT abdomen pelvis w con* [id number] 09/20/2020 5:23 AM RADIATION DOSE METRICS: Total DLP (mGy-cm): 1278.13 FINDINGS: Lungs: Interstitial prominence. Liver: Inhomogeneous attenuation of the liver without focal mass. Gallbladder and bile ducts: Biliary ductal dilatation with internal biliary and pancreatic duct stents. Note there has been proximal migration of the pancreatic stent, when compared to the previous study. Status post cholecystectomy. Pancreas: Multifocal pancreatic calcifications consistent with chronic pancreatitis. Enlargement and inhomogeneous attenuation in the pancreatic head, along with infiltration of peripancreatic fat. High attenuation 15 mm cystic structure in the pancreatic tail, which previously measured 13 mm. Spleen: No splenomegaly. Adrenal glands: Stable adrenal morphology. Kidneys and ureters: 2 mm nonobstructing left renal calculus and stable 6 mm nodular hypodensity in the anterior left kidney. Stomach and bowel: Gastro duodenal wall thickening with marked diminish in in caliber of the transverse duodenum in the midline. Jejunal dilatation and mild wall thickening without a focal transition zone. Prominent stool, in a pattern suggesting constipation. Diverticula, without pericolonic inflammation. Appendix: No acute appendicitis. Intraperitoneal space: No significant free fluid. Vasculature: Vascular calcification. No abdominal aortic aneurysm. Lymph nodes: Numerous peripancreatic lymph nodes, the majority of which are subcentimeter in size. Additional subcentimeter retroperitoneal lymph nodes. Urinary bladder: Normal bladder morphology. Reproductive: Inhomogeneous attenuation and punctate calcification in the prostate. Bones/joints: Osteopenia , degenerative change, disc bulging. Ligamentous calcification. Schmorl's nodes, vertebral endplate irregularity, and chronic compression deformities. Soft tissues: Calcification at the gluteal muscle attachment sites. CT/CT abdomen pelvis w con* [id number] IMPRESSION: 1. Gastroduodenal wall thickening with marked diminish in in caliber of the transverse duodenum in the midline. Additional jejunal dilatation and wall thickening. 2. Biliary ductal dilatation with internal biliary and pancreatic duct stents. 3. Multifocal pancreatic calcifications consistent with chronic pancreatitis. Enlargement and inhomogeneous attenuation in the pancreatic head, along with infiltration of peripancreatic fat. High attenuation 15 mm cystic structure in the pancreatic tail, which previously measured 13 mm. 4. Numerous peripancreatic lymph nodes, the majority of which are subcentimeter in size. 5. Additional findings as described above. Radiation Dose CTDIVOL = (mGy): DLP = 1278.13 (mGy-cm)
--- NOTE | 2020-12-19 05:20 | W.ED.ABDPA2 ---
Documented by User: Be Rivera MD 12/19/20 05:29 HPI - Abdominal Pain General: Chief Complaint: Abdominal Pain Stated Complaint: Chronic Pancreatitis Time Seen by Provider: 12/19/20 05:13 Source: patient Mode of arrival: ambulatory Limitations: no limitations History of Present Illness: HPI narrative: 60-year-old male has history of chronic pancreatitis. Patient has stents placed every 3 months at [facility] and states he had them placed at the end of the month last month. He states he been having abdominal pain since then it has gotten worse the last 1 to 2 days. He states the pain is sharp in nature and rates an 8 out of 10 states he had multiple episodes of vomiting. Denies any fevers. MD elicited complaint: abdominal pain Associated Symptoms: Reports nausea and vomiting; Denies chills, diarrhea, dysuria and fever(s) Review of Systems Const: Denies: fever(s), chills, body aches or change in appetite Eyes: Denies: blurry vision or eye discomfort ENMT: Denies: throat pain or dental pain Card: Denies: chest pain Resp: Denies: dyspnea GI: Reports: abdominal pain, nausea and vomiting; Denies: diarrhea : Denies: dysuria Musc: Denies: neck pain or back pain Skin/Breast: Denies: rash Neuro: Denies: headache(s) Psych: Denies: depression Ian/Lymph: Denies: easy bruising All/Imm: Denies: urticaria PFSH ED PFSH: Medical History Acute pancreatitis Diabetes GERD (gastroesophageal reflux disease) Hyperlipidemia Idiopathic chronic pancreatitis Insomnia Presence of pancreatic duct stent PTSD (post-traumatic stress disorder) Surgical History History of back surgery S/P cholecystectomy Social History Smoking and tobacco status: current every day smoker cigarettes Packs smoked per day: 1 Alcohol intake: never Physical Exam Const: COMMON NORMALS: no acute distress, patient oriented x3 and healthy appearing HENMT: COMMON NORMALS: normocephalic and atraumatic HEAD & SCALP: normocephalic and atraumatic Eye: COMMON NORMALS: Equal, round and reactive pupils present and EOMs intact bilaterally PUPIL: Yes Equal, round and reactive pupils present Neck/C-Spine: COMMON NORMALS: full ROM and supple Chest: COMMONS NORMALS: normal inspection of the chest and normal palpation of entire chest wall Resp: COMMON NORMALS: normal respiratory effort, No retractions, No use of accessory muscles and clear to auscultation bilaterally AUSCULTATION: clear to auscultation bilaterally Cardio: COMMON NORMALS: regular rate, regular rhythm and No murmurs present (Cardio) RATE: regular rate RHYTHM: regular rhythm GI: COMMON NORMALS: Normal to inspection, nondistended, normoactive bowel sounds present, Soft to palpation, non-tender and no masses PALPATION: Yes Soft to palpation Extremity: COMMON NORMALS: normal to inspection and full ROM Neuro: COMMON NORMALS: patient oriented x3, moves all extremities and no focal motor deficits Psych: COMMON NORMALS: mental status grossly normal, Normal thought process present and cooperative THOUGHT PROCESS: Normal thought process present Skin: COMMON NORMALS: no rashes or lesions noted and no wounds GENERAL SKIN EXAM: no rashes or lesions noted Course Vital Signs: Vital signs: Vital Signs Temperature 98.3 F 12/19/20 21:30 Pulse Rate 50 L 12/20/20 18:08 Respiratory Rate 18 12/20/20 18:05 Blood Pressure 113/67 12/20/20 18:08 Pulse Oximetry 99 12/20/20 18:08 MDM - Abdominal Pain Lab Data: Labs: Lab Results 12/19/20 12/19/20 12/19/20 05:15 05:15 09:31 WBC 8.5 10^3/uL 10^3/ uL (4.0-10.0) RBC 5.36 10^6/uL H 10 ^6/uL (4.1-5.3) Hgb 15.0 g/dL g/dL (11.7-16.6) Hct 46.5 % % (42.0-52.0) MCV 86.8 fl fl (80-94) MCH 28.0 pg pg (28.0-34.0) MCHC 32.3 g/dL g/dL (30.0-36.0) RDW 13.3 % % (12.1-15.1) Plt Count 235 10^3/cmm 10^3 /cmm (130-400) MPV 10.8 fL H fL (7.4-10.4) Neut % (Auto) 66.7 % % Lymph % (Auto) 21.4 % % [place] % (Auto) 7.4 % % Eos % (Auto) 3.4 % % Baso % (Auto) 0.9 % % Neut # (Auto) 5.63 10^3/uL 10^3 /uL (1.8-7.7) Lymph # (Auto) 1.8 10^3/uL 10^3/ uL (0.8-4.8) [place] # (Auto) 0.6 10^3/uL 10^3/ uL (0.2-0.9) Eos # (Auto) 0.3 10^3/uL 10^3/ uL (0.0-0.8) Baso # (Auto) 0.1 10^3/uL 10^3/ uL (0.0-0.1) Nucleated RBC % (a uto) 0 % % Nucleated RBCs # 0.0 /100WBC /100W BC Sodium 139 mmol/L mmol/L (136-145) Potassium 4.0 mmol/L mmol/L (3.5-5.1) Chloride 102 mmol/L mmol/L (98-107) Carbon Dioxide 29 mmol/L mmol/L (22-29) Anion Gap 12.0 (5-19) BUN 8 mg/dL mg/dL (8-23) Creatinine 0.6 mg/dL L mg/dL (0.7-1.2) GFR Calculation 137.4 mL/min H mL /min (90-130) Glucose 348 mg/dL H mg/dL (65-115) Calculated Osmolal ity 300 mOsm/kg H mOs m/kg (285-295) Calcium 9.4 mg/dL mg/dL (8.5-10.5) Total Bilirubin 0.2 mg/dL mg/dL (0.15-1.2) AST 7 U/L U/L (0-40) ALT 8 U/L U/L (0-41) Alkaline Phosphata se 108 IU/L IU/L (40-130) Total Protein 7.4 g/dL g/dL (6.6-8.7) Albumin 4.1 g/dL g/dL (3.5-5.2) Globulin 3.3 g/dL g/dL (1.3-4.6) Lipase 233 U/L H U/L (13-60) Urine Color Straw (Yellow) Urine Appearance Clear (CLEAR) Urine pH 7 (5-7) Ur Specific Gravit y 1.010 (1.005-1.030) Urine Protein Neg (Negative) Urine Glucose (UA) 4+ H (Normal) Urine Ketones Negative (Negative) Urine Blood Neg (Negative) Urine Nitrate Negative (Negative) Urine Bilirubin Neg (Negative) Urine Urobilinogen Norm mg/dL mg/dL (Negative) Ur Leukocyte Rachel ase Negative (Negative) 12/20/20 12/20/20 08:56 08:56 WBC 9.1 10^3/uL 10^3/ uL (4.0-10.0) RBC 5.22 10^6/uL 10^6 /uL (4.1-5.3) Hgb 14.5 g/dL g/dL (11.7-16.6) Hct 46.3 % % (42.0-52.0) MCV 88.7 fl fl (80-94) MCH 27.8 pg L pg (28.0-34.0) MCHC 31.3 g/dL g/dL (30.0-36.0) RDW 13.4 % % (12.1-15.1) Plt Count 236 10^3/cmm 10^3 /cmm (130-400) MPV 10.2 fL fL (7.4-10.4) Neut % (Auto) 62.1 % % Lymph % (Auto) 25.9 % % [place] % (Auto) 7.4 % % Eos % (Auto) 3.5 % % Baso % (Auto) 0.9 % % Neut # (Auto) 5.66 10^3/uL 10^3 /uL (1.8-7.7) Lymph # (Auto) 2.4 10^3/uL 10^3/ uL (0.8-4.8) [place] # (Auto) 0.7 10^3/uL 10^3/ uL (0.2-0.9) Eos # (Auto) 0.3 10^3/uL 10^3/ uL (0.0-0.8) Baso # (Auto) 0.1 10^3/uL 10^3/ uL (0.0-0.1) Nucleated RBC % (a uto) 0 % % Nucleated RBCs # 0.0 /100WBC /100W BC Sodium 140 mmol/L mmol/L (136-145) Potassium 3.9 mmol/L mmol/L (3.5-5.1) Chloride 103 mmol/L mmol/L (98-107) Carbon Dioxide 28 mmol/L mmol/L (22-29) Anion Gap 12.9 (5-19) BUN 6 mg/dL L mg/dL (8-23) Creatinine 0.5 mg/dL L mg/dL (0.7-1.2) GFR Calculation 169.6 mL/min H mL /min (90-130) Glucose 80 mg/dL mg/dL (65-115) Calculated Osmolal ity 287 mOsm/kg mOsm/ kg (285-295) Calcium 9.0 mg/dL mg/dL (8.5-10.5) Total Bilirubin 0.5 mg/dL mg/dL (0.15-1.2) AST 10 U/L U/L (0-40) ALT 9 U/L U/L (0-41) Alkaline Phosphata se 104 IU/L IU/L (40-130) Total Protein 7.3 g/dL g/dL (6.6-8.7) Albumin 3.9 g/dL g/dL (3.5-5.2) Globulin 3.4 g/dL g/dL (1.3-4.6) Lipase 94 U/L H U/L (13-60) Urine Color Urine Appearance Urine pH Ur Specific Gravit y Urine Protein Urine Glucose (UA) Urine Ketones Urine Blood Urine Nitrate Urine Bilirubin Urine Urobilinogen Ur Leukocyte Rachel ase Discharge Plan Discharge Patient Disposition: Xfer Short-Term Hosp Clinical Impression: Pancreatitis, Presence of pancreatic duct stent Condition: Stable Referrals: Polo Wilson MD [Primary Care Provider] - Patient Instructions: Opioid Safety Sign Out Sign Out Data: Patient Sign Out occurred on 12/19/20 at 05:50. Patient's care was discussed, and care was transferred from to Antonio Martin DO. Coding Level of Care Code ED Supervisor Toy Assembly for g Fwd Exam Comprehensive Documented by User: Antonio Martin DO 12/23/20 15:23 HPI - Abdominal Pain General: Chief Complaint: Abdominal Pain Stated Complaint: Chronic Pancreatitis Time Seen by Provider: 12/19/20 05:13 [facility] ED PFSH: Medical History Acute pancreatitis Diabetes GERD (gastroesophageal reflux disease) Hyperlipidemia Idiopathic chronic pancreatitis Insomnia Presence of pancreatic duct stent PTSD (post-traumatic stress disorder) Surgical History History of back surgery S/P cholecystectomy Social History Smoking and tobacco status: current every day smoker cigarettes Packs smoked per day: 1 Alcohol intake: never Course Vital Signs: Vital signs: Vital Signs Temperature 98.3 F 12/19/20 21:30 Pulse Rate 50 L 12/20/20 18:08 Respiratory Rate 18 12/20/20 18:05 Blood Pressure 113/67 12/20/20 18:08 Pulse Oximetry 99 12/20/20 18:08 MDM - Abdominal Pain MDM Narrative: Medical decision making narrative: 12/19/20 60-year-old male is seen initially on 12/19. He has pancreatitis with a migration of the stent. We made arrangements for him to return to [facility] for GI evaluation. His pain is remained well controlled. We are still waiting bed assignment to transfer. We will repeat CBC CMP and lipase this morning. Eventually [facility] did call back and we received a bed assignment patient transferred in stable condition to [facility] via [facility]. Lab Data: Labs: Lab Results 12/19/20 12/19/20 12/19/20 05:15 05:15 09:31 WBC 8.5 10^3/uL 10^3/ uL (4.0-10.0) RBC 5.36 10^6/uL H 10 ^6/uL (4.1-5.3) Hgb 15.0 g/dL g/dL (11.7-16.6) Hct 46.5 % % (42.0-52.0) MCV 86.8 fl fl (80-94) MCH 28.0 pg pg (28.0-34.0) MCHC 32.3 g/dL g/dL (30.0-36.0) RDW 13.3 % % (12.1-15.1) Plt Count 235 10^3/cmm 10^3 /cmm (130-400) MPV 10.8 fL H fL (7.4-10.4) Neut % (Auto) 66.7 % % Lymph % (Auto) 21.4 % % [place] % (Auto) 7.4 % % Eos % (Auto) 3.4 % % Baso % (Auto) 0.9 % % Neut # (Auto) 5.63 10^3/uL 10^3 /uL (1.8-7.7) Lymph # (Auto) 1.8 10^3/uL 10^3/ uL (0.8-4.8) [place] # (Auto) 0.6 10^3/uL 10^3/ uL (0.2-0.9) Eos # (Auto) 0.3 10^3/uL 10^3/ uL (0.0-0.8) Baso # (Auto) 0.1 10^3/uL 10^3/ uL (0.0-0.1) Nucleated RBC % (a uto) 0 % % Nucleated RBCs # 0.0 /100WBC /100W BC Sodium 139 mmol/L mmol/L (136-145) Potassium 4.0 mmol/L mmol/L (3.5-5.1) Chloride 102 mmol/L mmol/L (98-107) Carbon Dioxide 29 mmol/L mmol/L (22-29) Anion Gap 12.0 (5-19) BUN 8 mg/dL mg/dL (8-23) Creatinine 0.6 mg/dL L mg/dL (0.7-1.2) GFR Calculation 137.4 mL/min H mL /min (90-130) Glucose 348 mg/dL H mg/dL (65-115) Calculated Osmolal ity 300 mOsm/kg H mOs m/kg (285-295) Calcium 9.4 mg/dL mg/dL (8.5-10.5) Total Bilirubin 0.2 mg/dL mg/dL (0.15-1.2) AST 7 U/L U/L (0-40) ALT 8 U/L U/L (0-41) Alkaline Phosphata se 108 IU/L IU/L (40-130) Total Protein 7.4 g/dL g/dL (6.6-8.7) Albumin 4.1 g/dL g/dL (3.5-5.2) Globulin 3.3 g/dL g/dL (1.3-4.6) Lipase 233 U/L H U/L (13-60) Urine Color Straw (Yellow) Urine Appearance Clear (CLEAR) Urine pH 7 (5-7) Ur Specific Gravit y 1.010 (1.005-1.030) Urine Protein Neg (Negative) Urine Glucose (UA) 4+ H (Normal) Urine Ketones Negative (Negative) Urine Blood Neg (Negative) Urine Nitrate Negative (Negative) Urine Bilirubin Neg (Negative) Urine Urobilinogen Norm mg/dL mg/dL (Negative) Ur Leukocyte Rachel ase Negative (Negative) 12/20/20 12/20/20 08:56 08:56 WBC 9.1 10^3/uL 10^3/ uL (4.0-10.0) RBC 5.22 10^6/uL 10^6 /uL (4.1-5.3) Hgb 14.5 g/dL g/dL (11.7-16.6) Hct 46.3 % % (42.0-52.0) MCV 88.7 fl fl (80-94) MCH 27.8 pg L pg (28.0-34.0) MCHC 31.3 g/dL g/dL (30.0-36.0) RDW 13.4 % % (12.1-15.1) Plt Count 236 10^3/cmm 10^3 /cmm (130-400) MPV 10.2 fL fL (7.4-10.4) Neut % (Auto) 62.1 % % Lymph % (Auto) 25.9 % % [place] % (Auto) 7.4 % % Eos % (Auto) 3.5 % % Baso % (Auto) 0.9 % % Neut # (Auto) 5.66 10^3/uL 10^3 /uL (1.8-7.7) Lymph # (Auto) 2.4 10^3/uL 10^3/ uL (0.8-4.8) [place] # (Auto) 0.7 10^3/uL 10^3/ uL (0.2-0.9) Eos # (Auto) 0.3 10^3/uL 10^3/ uL (0.0-0.8) Baso # (Auto) 0.1 10^3/uL 10^3/ uL (0.0-0.1) Nucleated RBC % (a uto) 0 % % Nucleated RBCs # 0.0 /100WBC /100W BC Sodium 140 mmol/L mmol/L (136-145) Potassium 3.9 mmol/L mmol/L (3.5-5.1) Chloride 103 mmol/L mmol/L (98-107) Carbon Dioxide 28 mmol/L mmol/L (22-29) Anion Gap 12.9 (5-19) BUN 6 mg/dL L mg/dL (8-23) Creatinine 0.5 mg/dL L mg/dL (0.7-1.2) GFR Calculation 169.6 mL/min H mL /min (90-130) Glucose 80 mg/dL mg/dL (65-115) Calculated Osmolal ity 287 mOsm/kg mOsm/ kg (285-295) Calcium 9.0 mg/dL mg/dL (8.5-10.5) Total Bilirubin 0.5 mg/dL mg/dL (0.15-1.2) AST 10 U/L U/L (0-40) ALT 9 U/L U/L (0-41) Alkaline Phosphata se 104 IU/L IU/L (40-130) Total Protein 7.3 g/dL g/dL (6.6-8.7) Albumin 3.9 g/dL g/dL (3.5-5.2) Globulin 3.4 g/dL g/dL (1.3-4.6) Lipase 94 U/L H U/L (13-60) Urine Color Urine Appearance Urine pH Ur Specific Gravit y Urine Protein Urine Glucose (UA) Urine Ketones Urine Blood Urine Nitrate Urine Bilirubin Urine Urobilinogen Ur Leukocyte Rachel ase Discharge Plan Discharge Patient Disposition: Xfer Short-Term Hosp Clinical Impression: Pancreatitis, Presence of pancreatic duct stent Condition: Stable Referrals: Polo Wilson MD [Primary Care Provider] - Patient Instructions: Opioid Safety Sign Out Sign Out Data: Patient Sign Out occurred on 12/19/20 at 05:50. Patient's care was discussed, and care was transferred from to Antonio Martin DO. Coding Level of Care Code ED Supervisor Toy Assembly for Chg Fwd Exam Comprehensive
[2020-12-19 05:23] LABS: Basophils # 0.1 10^3/uL (0.0-0.1); Basophils % 0.9 %; Eosinophils # 0.3 10^3/uL (0.0-0.8); Eosinophils % 3.4 %; Hematocrit 46.5 % (42.0-52.0); Lymphocytes # 1.8 10^3/uL (0.8-4.8); Lymphocytes % 21.4 %; Mean Corpuscular HGB Conc 32.3 g/dL (30.0-36.0); Mean Corpuscular Volume 86.8 fl (80-94); Mean Platelet Volume 10.8 fL (7.4-10.4); Monocytes # 0.6 10^3/uL (0.2-0.9); Monocytes % 7.4 %; Neutrophils # 5.63 10^3/uL (1.8-7.7); Neutrophils % 66.7 %; Nucleated Red Blood Cells % 0 %; Platelet Count 235 10^3/cmm (130-400); Red Blood Count 5.36 10^6/uL (4.1-5.3); Red Cell Distribution Width 13.3 % (12.1-15.1); White Blood Count 8.5 10^3/uL (4.0-10.0)
[2020-12-19] MEDS: ondansetron 2 mg/ML SDV 2 mL 4 MG IVP (05:25)
[2020-12-19] MEDS: HYDROmorphone 1 mg/mL INJ 1 mL IVP ×6 (05:25→22:43)
[2020-12-19] MEDS: sodium chloride 0.9% 1,000 ML 999 ML IV ×3 (05:26→13:37)
[2020-12-19 05:55] LABS: Alanine Aminotransferase 8 U/L (0-41); Albumin Level 4.1 g/dL (3.5-5.2); Alkaline Phosphatase 108 IU/L (40-130); Aspartate Amino Transferase 7 U/L (0-40); Blood Urea Nitrogen 8 mg/dL (8-23); Calcium 9.4 mg/dL (8.5-10.5); Carbon Dioxide 29 mmol/L (22-29); Chloride 102 mmol/L (98-107); Globulin 3.3 g/dL (1.3-4.6); Glomerular Filtration Rate 137.4 mL/min (90-130); Glucose 348 mg/dL (65-115); Lipase 233 U/L (13-60); Osmolality Calculated 300 mOsm/kg (285-295); Sodium 139 mmol/L (136-145); Total Bilirubin 0.2 mg/dL (0.15-1.2); Total Protein 7.4 g/dL (6.6-8.7)
[2020-12-19] MEDS: HYDROmorphone 1 mg/mL INJ 1 mL 0.5 MG IVP ×2 (07:36→16:00)
[2020-12-19 11:50] LABS: Add Urine Microscopic? NO; Charge for UA Resulting for Rev
[2020-12-19 11:53] LABS: Bilirubin Urine Neg (Negative); Blood Urine Neg (Negative); Glucose Urine UA 4+ (Normal); Ketones Urine Negative (Negative); Leukocyte Esterase Urine Negative (Negative); Nitrate Urine Negative (Negative); Protein Urine Neg (Negative); Urine Appearance Clear (CLEAR); Urine Color Straw (Yellow); Urobilinogen Urine Norm (Negative); pH Urine 7 (5-7)
[2020-12-19] MEDS: D5-NS 0.45% + KCL 20 mEq 20 MEQ/1,000 ML BAG 150 MEQ IV (13:48)
--- NOTE | 2020-12-19 17:42 | PC.PHAR ---
pt states he takes care of his own medications-notes are made in the pharmacy comments-pt states he still takes lovastatin 40mg hs ext med history shows last filled on 05/30/20 30d/s-pt states he no longer takes metformin-pt states he only takes the medications entered
[2020-12-19] MEDS: LORazepam 2 mg/mL INJ 1 mL 1 MG IVP (22:44)
[2020-12-20] VITALS (10 sets, daily range): BP systolic 109–138; BP diastolic 56–73; PULSE 50–74; RESP 14–20; O2SAT 98–100
[2020-12-20] MEDS: HYDROmorphone 1 mg/mL INJ 1 mL IVP ×4 (01:00→18:02)
[2020-12-20] MEDS: D5-NS 0.45% + KCL 20 mEq 20 MEQ/1,000 ML BAG 150 MEQ IV ×3 (01:02→17:05)
[2020-12-20] MEDS: LORazepam 2 mg/mL INJ 1 mL 1 MG IVP (04:17)
[2020-12-20] MEDS: HYDROcodone-acetaminophen 10-325 mg Tablet 1 TAB PO (04:17)
--- NOTE | 2020-12-20 08:42 | PC.NURSE ---
Current IV in LAC blew and needed to be replaced. IV removed and new IV in RAC attempted unsucessfully. Pt then stated I am tired of hurting and refuse an IV and pain meds . Dr Martin notified.
[2020-12-20 09:04] LABS: Basophils # 0.1 10^3/uL (0.0-0.1); Basophils % 0.9 %; Eosinophils # 0.3 10^3/uL (0.0-0.8); Eosinophils % 3.5 %; Hematocrit 46.3 % (42.0-52.0); Hemoglobin 14.5 g/dL (11.7-16.6); Lymphocytes # 2.4 10^3/uL (0.8-4.8); Lymphocytes % 25.9 %; Mean Corpuscular HGB Conc 31.3 g/dL (30.0-36.0); Mean Corpuscular Hemoglobin 27.8 pg (28.0-34.0); Mean Corpuscular Volume 88.7 fl (80-94); Mean Platelet Volume 10.2 fL (7.4-10.4); Monocytes # 0.7 10^3/uL (0.2-0.9); Monocytes % 7.4 %; Neutrophils # 5.66 10^3/uL (1.8-7.7); Neutrophils % 62.1 %; Nucleated Red Blood Cells % 0 %; Platelet Count 236 10^3/cmm (130-400); Red Blood Count 5.22 10^6/uL (4.1-5.3); Red Cell Distribution Width 13.4 % (12.1-15.1); White Blood Count 9.1 10^3/uL (4.0-10.0)
[2020-12-20] MEDS: promethazine 25 mg/mL SDV 1 mL IM (09:07)
[2020-12-20 09:28] LABS: Alanine Aminotransferase 9 U/L (0-41); Albumin Level 3.9 g/dL (3.5-5.2); Alkaline Phosphatase 104 IU/L (40-130); Anion Gap 12.9 (5-19); Aspartate Amino Transferase 10 U/L (0-40); Blood Urea Nitrogen 6 mg/dL (8-23); Carbon Dioxide 28 mmol/L (22-29); Chloride 103 mmol/L (98-107); Globulin 3.4 g/dL (1.3-4.6); Glomerular Filtration Rate 169.6 mL/min (90-130); Glucose 80 mg/dL (65-115); Lipase 94 U/L (13-60); Osmolality Calculated 287 mOsm/kg (285-295); Potassium 3.9 mmol/L (3.5-5.1); Sodium 140 mmol/L (136-145); Total Bilirubin 0.5 mg/dL (0.15-1.2); Total Protein 7.3 g/dL (6.6-8.7)
--- NOTE | 2020-12-20 17:27 | PC.NURSE ---
Report called to Magdalene Mcdaniels RN and [place] Juvenal.
== END 2020-12-20 18:14 | disposition short-term general hospital (02) ==
PROVIDERS: Emergency Medicine; Emergency Provider Family Medicine; PCP Internal Medicine
DX: K85.90 Acute pancreatitis without necrosis or infection, unspecified (principal); E11.9 Type 2 diabetes mellitus without complications; E78.5 Hyperlipidemia, unspecified; F17.210 Nicotine dependence, cigarettes, uncomplicated
CPT/HCPCS: 74177; 80053; 81003; 83690; 85025; 96365; 96366; 96372; 96375; 96376; 99285; J1170; J2060; J2405; J2550; J7030; Q9967

== ENCOUNTER 2021-03-17 03:13 | Emergency (ER) | payer MEDICARE, SELFPAY ==
[2021-03-17 03:21] VITALS: BP 127/71; PULSE 79; RESP 24; TEMP 36.3; O2SAT 97; BMI 19.0
--- NOTE | 2021-03-17 03:23 | CTR_ITS ---
PROCEDURE INFORMATION: Exam: CT Abdomen And Pelvis With Contrast Exam date and time: 03/17/2021 3:23 AM Age: 61 years old Clinical indication: Abdominal pain; Prior surgery; Surgery type: Gb. Pancreatic stent. ; Patient HX: Severe epigastric pain. History of chronic pancreatitis. TECHNIQUE: Imaging protocol: Computed tomography of the abdomen and pelvis with contrast. Radiation optimization: All CT scans at this facility use at least one of these dose optimization techniques: automated exposure control; mA and/or kV adjustment per patient size (includes targeted exams where dose is matched to clinical indication); or iterative reconstruction. Contrast material: OMNI 300; Contrast volume: 95 ml; Contrast route: INTRAVENOUS (IV); COMPARISON: CT abdomen pelvis w con* [id number] 12/19/2020 6:24 AM RADIATION DOSE METRICS: Total DLP (mGy-cm): 1030.69 FINDINGS: Tubes, catheters and devices: Stable choledocoduodenal stent. Probable partial distal migration of the pancreaticoduodenal stent. Liver: Normal. No mass. Gallbladder and bile ducts: Stable cholecystectomy. Interval appearance of left pneumobilia which can be normal following cholecystectomy and/or choledocoduodenal stent. Pancreas: Severe stable chronic calcific pancreatitis. Spleen: Normal. No splenomegaly. Adrenal glands: Normal. No mass. Kidneys and ureters: Normal. No hydronephrosis. Stomach and bowel: Unremarkable. No obstruction. No mucosal thickening. Appendix: No evidence of appendicitis. Intraperitoneal space: Unremarkable. No free air. No significant fluid collection. Vasculature: Unremarkable. No abdominal aortic aneurysm. Lymph nodes: Unremarkable. No enlarged lymph nodes. Urinary bladder: Unremarkable as visualized. Reproductive: Unremarkable as visualized. Bones/joints: Moderate to severe multilevel spine degenerative changes including degenerative disc disease, spondylosis and facet degenerative changes. Soft tissues: Unremarkable. Other findings: Mild to moderate retained feces. CT/CT abdomen pelvis w con* [id number] IMPRESSION: 1. Severe stable chronic calcific pancreatitis. 2. Stable cholecystectomy. 3. Stable choledocoduodenal stent. 4. Interval appearance of left pneumobilia which can be normal following cholecystectomy and/or choledocoduodenal stent. 5. Probable partial distal migration of the pancreaticoduodenal stent.
[2021-03-17 03:35] VITALS: RESP 18
[2021-03-17] MEDS: HYDROmorphone 1 mg/mL INJ 1 mL IVP ×3 (03:35→05:45)
[2021-03-17] MEDS: sodium chloride 0.9% 1,000 ML 999 ML IV (03:36)
[2021-03-17] MEDS: ondansetron 2 mg/ML SDV 2 mL 4 MG IVP (03:36)
[2021-03-17 03:44] LABS: Basophils # 0.1 10^3/uL (0.0-0.1); Basophils % 0.7 %; Eosinophils # 0.3 10^3/uL (0.0-0.8); Eosinophils % 2.6 %; Hematocrit 45.3 % (42.0-52.0); Hemoglobin 14.7 g/dL (11.7-16.6); Mean Corpuscular HGB Conc 32.5 g/dL (30.0-36.0); Mean Corpuscular Hemoglobin 27.8 pg (28.0-34.0); Mean Corpuscular Volume 85.6 fl (80-94); Mean Platelet Volume 10.5 fL (7.4-10.4); Monocytes # 0.8 10^3/uL (0.2-0.9); Monocytes % 7.9 %; Neutrophils # 6.36 10^3/uL (1.8-7.7); Neutrophils % 67.4 %; Nucleated Red Blood Cells % 0 %; Platelet Count 249 10^3/cmm (130-400); Red Blood Count 5.29 10^6/uL (4.1-5.3); White Blood Count 9.5 10^3/uL (4.0-10.0)
[2021-03-17 03:58] LABS: Lactate (Lactic Acid level) 1.9 mmol/L (0.5-2.2)
[2021-03-17 03:59] LABS: Alanine Aminotransferase 42 U/L (0-41); Alkaline Phosphatase 197 IU/L (40-130); Aspartate Amino Transferase 10 U/L (0-40); Blood Urea Nitrogen 8 mg/dL (8-23); C Reactive Protein 45.8 mg/L (0.0-4.9); Calcium 9.1 mg/dL (8.5-10.5); Carbon Dioxide 27 mmol/L (22-29); Chloride 96 mmol/L (98-107); Creatine Phosphokinase 29 U/L (39-308); Globulin 3.2 g/dL (1.3-4.6); Glomerular Filtration Rate 218.7 mL/min (90-130); Glucose 388 mg/dL (65-115); Lipase 192 U/L (13-60); Osmolality Calculated 292 mOsm/kg (285-295); Sodium 134 mmol/L (136-145); Total Bilirubin 0.5 mg/dL (0.15-1.2); Total Protein 7.2 g/dL (6.6-8.7)
[2021-03-17 04:06] LABS: Add Urine Microscopic? NO; Charge for UA Resulting for Rev
[2021-03-17 04:17] VITALS: RESP 18
[2021-03-17 04:23] LABS: Anion Gap 15.4 (5-19); Creatinine Clr Calc Pharmacy 174.1923; Potassium 4.4 mmol/L (3.5-5.1)
[2021-03-17 04:32] LABS: Bilirubin Urine Neg (Negative); Blood Urine Neg (Negative); Glucose Urine UA 4+ (Normal); Ketones Urine Negative (Negative); Leukocyte Esterase Urine Negative (Negative); Nitrate Urine Negative (Negative); Protein Urine Neg (Negative); Specific Gravity, Urine 1.015 (1.005-1.030); Urine Appearance Clear (CLEAR); Urine Color Yellow (Yellow); Urobilinogen Urine Norm (Negative); pH Urine 6.5 (5-7)
[2021-03-17] MEDS: iohexol 300 mg/mL 100 mL Btl IV (04:35)
[2021-03-17 05:45] VITALS: RESP 16
--- NOTE | 2021-03-17 06:12 | ED_ITS ---
HPI - Abdominal Pain General: Chief Complaint: Abdominal Pain Stated Complaint: Pancreas Pain Time Seen by Provider: 03/17/21 03:42 History of Present Illness: HPI narrative: 61-year-old gentleman with a history of chronic pancreatitis. He had been seen in [place], and had a pancreatic duct stent placed previously. He had a problem with the stent back in December and was transferred there. He tells me he has an appointment on Friday to be seen for a possible stent revision. He notes 3 days of increasing abdominal pain and nausea. No vomiting this time. No fever. He notes that his urine has become darker due to decreased intake. He says I can eat . He says it is hard to drink fluids as well because it makes his belly hurt. MD elicited complaint: abdominal pain Onset (ago): day(s) Pain Consistency: constant Location: Epigastric Severity: severe Quality: cramping and stabbing Radiation: back Migration to: no migration Associated Symptoms: Reports anorexia, change in stool character, constipation and poor appetite; Denies diarrhea, fever(s), hematemesis and vomiting Review of Systems Const: Denies: fever(s) Eyes: Denies: change in vision Card: Denies: chest pain or palpitations Resp: Denies: dyspnea or productive cough GI: Reports: constipation and change in stool character; Denies: vomiting, hematemesis or diarrhea [facility] PFSH: Medical History Acute pancreatitis Diabetes GERD (gastroesophageal reflux disease) Hyperlipidemia Idiopathic chronic pancreatitis Insomnia Presence of pancreatic duct stent PTSD (post-traumatic stress disorder) Surgical History History of back surgery S/P cholecystectomy Social History Smoking and tobacco status: current every day smoker cigarettes Packs smoked per day: 1 Alcohol intake: never Physical Exam Const: GENERAL APPEARANCE: cooperative and ill appearing ORIENTATION/CONSCIOUSNESS: Yes awake, Yes oriented to person and Yes oriented to place HENMT: COMMON NORMALS: normocephalic and atraumatic HEAD & SCALP: normocephalic and atraumatic Eye: COMMON NORMALS: Equal, round and reactive pupils present PUPIL: Yes Equal, round and reactive pupils present Chest: COMMONS NORMALS: normal inspection of the chest Resp: COMMON NORMALS: normal respiratory effort, No use of accessory muscles and clear to auscultation bilaterally AUSCULTATION: clear to auscultation bilaterally Cardio: COMMON NORMALS: regular rate and regular rhythm RATE: regular rate RHYTHM: regular rhythm GI: PALPATION: Yes Firmness to palpation present (GI), Yes Tenderness to palpation present (GI) and Yes Guarding due to palpation present (GI) Neuro: SENSORIUM/ORIENTATION: Yes oriented to person and Yes oriented to place Course Vital Signs: Vital signs: Vital Signs Temperature 97.3 F L 03/17/21 03:21 Pulse Rate 79 03/17/21 03:21 Respiratory Rate 16 03/17/21 05:45 Blood Pressure 127/71 03/17/21 03:21 Pulse Oximetry 97 03/17/21 03:21 MDM - Abdominal Pain MDM Narrative: Medical decision making narrative: 61-year-old male with a history of chronic calcific pancreatitis with pancreatic duct stent placement. On his last CT back in December, there had been migration of the stent. There may or may not be further migration of the stent on this CT tonight. His white blood cell count is 9.5. He is afebrile. However, his CRP is significantly elevated. His BMP is essentially normal. This is of course save a glucose in the 300s. He has been given insulin for this. He does take long-acting insulin at home. CT shows no pseudocyst or mass. He has an appointment in 4 days for reevaluation at [place] in [place] of his stent, and possible revision. He is in significant pain, but is not vomiting. He is tolerating liquids. He is afebrile. I put a call out to [facility] in [place], and they are at capacity currently. No beds are available. I shared this information with the patient. In shared decision-making, the patient would like to go home on a liquid diet, with some pain and antiemetic medication, and continue to try to contact the GI nursing staff in [place]. He states that if he worsens, his son can drive him to [place], or he will return to the emergency room here. Otherwise if he improves at home, he will make his appointment on Friday there. He knows the risks including worsening pancreatitis, sepsis, and potential . He is agreed to accept these risks. Lab Data: Labs: Lab Results 03/17/21 03/17/21 03/17/21 03:36 03:36 03:36 WBC 9.5 10^3/uL 10^3/ uL (4.0-10.0) RBC 5.29 10^6/uL 10^6 /uL (4.1-5.3) Hgb 14.7 g/dL g/dL (11.7-16.6) Hct 45.3 % % (42.0-52.0) MCV 85.6 fl fl (80-94) MCH 27.8 pg L pg (28.0-34.0) MCHC 32.5 g/dL g/dL (30.0-36.0) RDW 14.0 % % (12.1-15.1) Plt Count 249 10^3/cmm 10^3 /cmm (130-400) MPV 10.5 fL H fL (7.4-10.4) Neut % (Auto) 67.4 % % Lymph % (Auto) 21.0 % % [place] % (Auto) 7.9 % % Eos % (Auto) 2.6 % % Baso % (Auto) 0.7 % % Neut # (Auto) 6.36 10^3/uL 10^3 /uL (1.8-7.7) Lymph # (Auto) 2.0 10^3/uL 10^3/ uL (0.8-4.8) [place] # (Auto) 0.8 10^3/uL 10^3/ uL (0.2-0.9) Eos # (Auto) 0.3 10^3/uL 10^3/ uL (0.0-0.8) Baso # (Auto) 0.1 10^3/uL 10^3/ uL (0.0-0.1) Nucleated RBC % (a uto) 0 % % Nucleated RBCs # 0.0 /100WBC /100W BC Sodium 134 mmol/L L mmol /L (136-145) Potassium 4.4 mmol/L mmol/L (3.5-5.1) Chloride 96 mmol/L L mmol/ L (98-107) Carbon Dioxide 27 mmol/L mmol/L (22-29) Anion Gap 15.4 (5-19) BUN 8 mg/dL mg/dL (8-23) Creatinine 0.4 mg/dL L mg/dL (0.7-1.2) GFR Calculation 218.7 mL/min H mL /min (90-130) Glucose 388 mg/dL H mg/dL (65-115) Calculated Osmolal ity 292 mOsm/kg mOsm/ kg (285-295) Lactate 1.9 mmol/L mmol/L (0.5-2.2) Calcium 9.1 mg/dL mg/dL (8.5-10.5) Total Bilirubin 0.5 mg/dL mg/dL (0.15-1.2) AST 10 U/L U/L (0-40) ALT 42 U/L H U/L (0-41) Alkaline Phosphata se 197 IU/L H IU/L (40-130) Creatine Kinase 29 U/L L U/L (39-308) C-Reactive Protein 45.8 mg/L H mg/L (0.0-4.9) Total Protein 7.2 g/dL g/dL (6.6-8.7) Albumin 4.0 g/dL g/dL (3.5-5.2) Globulin 3.2 g/dL g/dL (1.3-4.6) Lipase 192 U/L H U/L (13-60) Urine Color Urine Appearance Urine pH Ur Specific Gravit y Urine Protein Urine Glucose (UA) Urine Ketones Urine Blood Urine Nitrate Urine Bilirubin Urine Urobilinogen Ur Leukocyte Rachel ase 03/17/21 03:57 WBC RBC Hgb Hct MCV MCH MCHC RDW Plt Count MPV Neut % (Auto) Lymph % (Auto) [place] % (Auto) Eos % (Auto) Baso % (Auto) Neut # (Auto) Lymph # (Auto) [place] # (Auto) Eos # (Auto) Baso # (Auto) Nucleated RBC % (a uto) Nucleated RBCs # Sodium Potassium Chloride Carbon Dioxide Anion Gap BUN Creatinine GFR Calculation Glucose Calculated Osmolal ity Lactate Calcium Total Bilirubin AST ALT Alkaline Phosphata se Creatine Kinase C-Reactive Protein Total Protein Albumin Globulin Lipase Urine Color Yellow (Yellow) Urine Appearance Clear (CLEAR) Urine pH 6.5 (5-7) Ur Specific Gravit y 1.015 (1.005-1.030) Urine Protein Neg (Negative) Urine Glucose (UA) 4+ H (Normal) Urine Ketones Negative (Negative) Urine Blood Neg (Negative) Urine Nitrate Negative (Negative) Urine Bilirubin Neg (Negative) Urine Urobilinogen Norm mg/dL mg/dL (Negative) Ur Leukocyte Rachel ase Negative (Negative) Discharge Plan Discharge Patient Disposition: Home Clinical Impression: Presence of pancreatic duct stent, Idiopathic chronic pancreatitis Condition: Stable Prescriptions: New Zofran 4 mg tablet 4 mg PO Q6H PRN (Reason: nausea and vomiting) Qty: 10 RF: 0 Percocet 7.5-325 mg tablet 1 tab PO Q6H PRN (Reason: pain) Qty: 10 RF: 0 No Action fluticasone propionate 50 mcg/actuation spray,suspension 1 spray INTRANASAL BID PRN (Reason: Allergy Symptoms) RF: 0 (DME) FreeStyle Lite Strips Strip See Rx Instructions .ROUTE .MEDSUPPLY Qty: 10 RF: 11 (DME) blood-glucose meter [FreeStyle [place]] Kit See Rx Instructions .ROUTE .MEDSUPPLY Qty: 1 RF: 0 lovastatin 40 mg tablet 40 mg PO BEDTIME RF: 0 Ducodyl (bisacodyl) 5 mg Tablet,Delayed Release (Dr/Ec) 5 - 10 mg PO DAILY PRN (Reason: Constipation) RF: 0 pregabalin 50 mg capsule 50 mg PO BID RF: 0 Creon 24,000-76,000 -120,000 unit capsule,delayed release(DR/EC) See Rx Instructions .ROUTE .COMPLEX RF: 0 Toujeo SoloStar U-300 Insulin 300 unit/mL (1.5 mL) insulin pen 20 unit SUBCUT DAILY@15 RF: 0 hydrocodone-acetaminophen 5-325 mg tablet 1 tab PO Q6H PRN (Reason: pain) RF: 0 lorazepam 1 mg tablet 1 mg PO DAILY@06 Qty: 30 RF: 5 lactulose 20 gram/30 mL solution 20 g PO DAILY PRN (Reason: laxative effect) Qty: 600 RF: 0 Discharge Orders: Discharge ED (Routine); Ordered 03/17/21 Ordered By: Tyrel Tipton Referrals: Polo Wilson MD [Primary Care Provider] - Patient Instructions: Pancreatitis (ED) Activity Restrictions/Additional Instructions: Return for fever greater than 100, vomiting liquids or medications, worsening pain despite treatment, other concerning symptoms. check your blood sugar diligently, as tight control of your blood sugars can help with your symptoms. Follow a liquid diet for at least the next 48 hours, then you may add solids as you tolerate. Medications as directed. Call the nurse on your GI team at [facility] to let them know you were here. Coding Level of Care Code ED Pediatric Licensed Practical Nurse for Lilia Fwd Exam Detailed
[2021-03-17] MEDS: insulin regular-human 100 units/1 mL 10 UNIT IVP (06:50)
[2021-03-17 07:34] VITALS: BP 114/71; PULSE 77; RESP 16; O2SAT 96
== END 2021-03-17 07:40 | disposition home or self-care (01) ==
PROVIDERS: Emergency Provider Emergency Medicine; PCP Internal Medicine
DX: K86.1 Other chronic pancreatitis (principal); Z96.89 Presence of other specified functional implants; R79.82 Elevated C-reactive protein (CRP); Z79.4 Long term (current) use of insulin; F17.210 Nicotine dependence, cigarettes, uncomplicated; E11.9 Type 2 diabetes mellitus without complications; K21.9 Gastro-esophageal reflux disease without esophagitis; E78.5 Hyperlipidemia, unspecified; Z90.49 Acquired absence of other specified parts of digestive tract
CPT/HCPCS: 74177; 80053; 81003; 82550; 83605; 83690; 85025; 86140; 96361; 96374; 96375; 96376; 99285; J1170; J1815; J2405; J7030; Q9967

== ENCOUNTER 2021-03-18 08:11 | Emergency (ER) | payer MEDICARE, SELFPAY ==
[2021-03-18] VITALS (17 sets, daily range): BP systolic 91–132; BP diastolic 61–81; PULSE 70–87; RESP 14–24; TEMP 36.4; O2SAT 93–98; BMI 19.3
[2021-03-18 08:36] LABS: Basophils # 0.1 10^3/uL (0.0-0.1); Basophils % 0.5 %; Eosinophils # 0.2 10^3/uL (0.0-0.8); Eosinophils % 1.8 %; Hematocrit 41.9 % (42.0-52.0); Hemoglobin 13.9 g/dL (11.7-16.6); Lymphocytes # 1.5 10^3/uL (0.8-4.8); Lymphocytes % 12.7 %; Mean Corpuscular HGB Conc 33.2 g/dL (30.0-36.0); Mean Corpuscular Volume 84.3 fl (80-94); Mean Platelet Volume 10.2 fL (7.4-10.4); Monocytes # 1.2 10^3/uL (0.2-0.9); Monocytes % 9.8 %; Neutrophils % 74.8 %; Nucleated Red Blood Cells % 0 %; Platelet Count 230 10^3/cmm (130-400); Red Blood Count 4.97 10^6/uL (4.1-5.3); White Blood Count 11.8 10^3/uL (4.0-10.0)
--- NOTE | 2021-03-18 08:49 | ED_ITS ---
Documented by User: Jean Burton MD 03/24/21 20:42 HPI - General Adult General: Chief complaint: General Medical Stated complaint: abd pains Time Seen by Provider: 03/18/21 08:49 History of Present Illness: HPI narrative: Mr Johnson is a 61-year-old gentleman with a history of chronic pancreatitis. He had been seen in [place], and had a pancreatic duct stent placed previously. He had a problem with the stent back in December and was transferred there. He presented to this emergency department last night where he noted 3 days history of gradual onset worsening abdominal pain associated with nausea. In the emergency department he had symptomatic care and labs and CT imaging performed. He elected for trial of symptom control at home however reports that he was unable to tolerate his nausea medication or pain medication. Symptoms are currently moderate to severe in intensity. They come in waves. Mostly epigastric aching and sharp. He has had similar episodes in the past. Mild associated chills which is new. No other specific changes in health, exacerbating, or alleviating factors identified. Patient denies abdominal trauma. Onset (ago): day(s) Location: abdomen Radiation: back Severity: severe Quality: aching Pain Consistency: constant and intermittent Relieving factors: none Exacerbating factors: eating and movement Associated symptoms: Reports nausea, vomiting and other Treatments prior to arrival: other Review of Systems General: Reports: 10 or more systems reviewed and unremarkable except in HPI and below GI: Reports: nausea and vomiting [facility] ED PFSH: Medical History Acute pancreatitis Diabetes GERD (gastroesophageal reflux disease) Hyperlipidemia Idiopathic chronic pancreatitis Insomnia Presence of pancreatic duct stent PTSD (post-traumatic stress disorder) Surgical History History of back surgery S/P cholecystectomy Social History Smoking and tobacco status: current every day smoker cigarettes Packs smoked per day: 1 Alcohol intake: never Physical Exam Const: COMMON NORMALS: alert GENERAL APPEARANCE: cooperative, well developed, in distress (pain) and ill appearing (mildly) HENMT: COMMON NORMALS: normocephalic and atraumatic HEAD & SCALP: normocephalic and atraumatic THROAT: posterior oropharynx normal Eye: COMMON NORMALS: conjunctivae normal CONJUNCTIVA: Yes conjunctivae normal SCLERA: sclerae normal Neck/C-Spine: COMMON NORMALS: supple GENERAL: Yes trachea midline Resp: COMMON NORMALS: normal respiratory effort EFFORT & INSPECTION: Yes able to speak in complete sentences Cardio: COMMON NORMALS: regular rate and regular rhythm RATE: regular rate RHYTHM: regular rhythm GI: COMMON NORMALS: Soft to palpation PALPATION: Yes Soft to palpation, Yes Tenderness to palpation present (GI), Yes Guarding due to palpation present (GI) and No Rigid due to palpation Extremity: GENERAL: Yes normal exam except as noted and No edema Neuro: COMMON NORMALS: moves all extremities SENSORIUM/ORIENTATION: Yes alert and No Orientation impaired Psych: COMMON NORMALS: mental status grossly normal and Normal thought process present THOUGHT PROCESS: Normal thought process present Course ED course: - Patient was seen and evaluated by me at bedside - Patient placed on cardiac monitors, IV access obtained - Initial evaluation notable for exam as above, discomfort due to pain -Symptom treatment ordered - Labs notable for mild leukocytosis. Metabolic panel with worsening evidence of likely dehydration. - Previous imaging reviewed, based on exam and clinical history I do not feel that repeat imaging is required at this time. - Upon serial reexamination after treatment the patient was transiently improved though requiring repeat doses. IV fluids and repeated doses as needed of analgesia ordered. - Discussed the case with transfer center at [facility] in [place]. They discussed the case with the patient's primary clinical rehabilitation aide. I discussed the case with accepting hospitalist physician and patient to be transferred for definitive GI treatment when bed becomes available. - Patient care handed off to overnight ED physician pending bed availability and transfer Note: Click bubbles or prepopulated ridley in note writing are used for assistance with data collection and billing and are inherently more limited than narrative and other text portions of this note. Please use narrative for additional clinical history and defer to narrative/free test for any case of contradictory information. If information appears in only free text or click bubble it should be considered present or absent as reported. Please contact note business writer for clarifications of clinical information or contradictory information. MDM is a brief summary, contradictory or erroneous seeming information should be clarified and full note should be referred to in cases of contradiction or lack of clarity. Vital Signs: Vital signs: Vital Signs Temperature 97.6 F 03/18/21 08:15 Pulse Rate 58 L 03/20/21 15:09 Respiratory Rate 18 03/20/21 15:09 Blood Pressure 103/51 03/20/21 15:09 Pulse Oximetry 97 03/20/21 15:09 MDM - General Adult MDM Narrative: Medical decision making narrative: 61-year-old gentleman with complex history regarding recurrent pancreatitis. Previously presented with multiple days of symptoms which had worsened. Trialed outpatient therapy at home mostly as unable to transfer due to bed availability. Patient returns with continued and worsening symptoms unable to tolerate p.o. treatment at home. He will require definitive management given stent finding on previous imaging. Accepted by [facility] in [place] with transfer pending bed assignment. Medical Records: Attestation: I reviewed the patient's medical records. Lab Data: Attestation: I reviewed the patient's lab results. Labs: Lab Results 03/18/21 03/18/21 03/18/21 08:30 08:30 08:42 WBC 11.8 10^3/uL H 10 ^3/uL (4.0-10.0) RBC 4.97 10^6/uL 10^6 /uL (4.1-5.3) Hgb 13.9 g/dL g/dL (11.7-16.6) Hct 41.9 % L % (42.0-52.0) MCV 84.3 fl fl (80-94) MCH 28.0 pg pg (28.0-34.0) MCHC 33.2 g/dL g/dL (30.0-36.0) RDW 14.0 % % (12.1-15.1) Plt Count 230 10^3/cmm 10^3 /cmm (130-400) MPV 10.2 fL fL (7.4-10.4) Neut % (Auto) 74.8 % % Lymph % (Auto) 12.7 % % [place] % (Auto) 9.8 % % Eos % (Auto) 1.8 % % Baso % (Auto) 0.5 % % Neut # (Auto) 8.80 10^3/uL H 10 ^3/uL (1.8-7.7) Lymph # (Auto) 1.5 10^3/uL 10^3/ uL (0.8-4.8) [place] # (Auto) 1.2 10^3/uL H 10^ 3/uL (0.2-0.9) Eos # (Auto) 0.2 10^3/uL 10^3/ uL (0.0-0.8) Baso # (Auto) 0.1 10^3/uL 10^3/ uL (0.0-0.1) Nucleated RBC % (a uto) 0 % % Nucleated RBCs # 0.0 /100WBC /100W BC Sodium 131 mmol/L L mmol /L (136-145) Potassium 3.5 mmol/L mmol/L (3.5-5.1) Chloride 94 mmol/L L mmol/ L (98-107) Carbon Dioxide 26 mmol/L mmol/L (22-29) Anion Gap 14.5 (5-19) BUN 10 mg/dL mg/dL (8-23) Creatinine 0.4 mg/dL L mg/dL (0.7-1.2) GFR Calculation 218.7 mL/min H mL /min (90-130) Glucose 203 mg/dL H mg/dL (65-115) POC Glucose Calculated Osmolal ity 277 mOsm/kg L mOs m/kg (285-295) Calcium 9.1 mg/dL mg/dL (8.5-10.5) Phosphorus Magnesium Total Bilirubin 0.5 mg/dL mg/dL (0.15-1.2) AST 12 U/L U/L (0-40) ALT 34 U/L U/L (0-41) Alkaline Phosphata se 191 IU/L H IU/L (40-130) C-Reactive Protein Total Protein 6.8 g/dL g/dL (6.6-8.7) Albumin 3.7 g/dL g/dL (3.5-5.2) Globulin 3.1 g/dL g/dL (1.3-4.6) Lipase 158 U/L H U/L (13-60) Procalcitonin Urine Color Dark yellow (Yellow) Urine Appearance Clear (CLEAR) Urine pH 5 (5-7) Ur Specific Gravit y 1.030 (1.005-1.030) Urine Protein Neg (Negative) Urine Glucose (UA) 2+ H (Normal) Urine Ketones 1+ H (Negative) Urine Blood Neg (Negative) Urine Nitrate Negative (Negative) Urine Bilirubin 1+ H (Negative) Urine Urobilinogen Norm mg/dL mg/dL (Negative) Ur Leukocyte Rachel ase Negative (Negative) SARS-CoV-2 Ag (Rap id) 03/18/21 03/19/21 03/19/21 12:44 18:22 19:01 WBC 7.9 10^3/uL 10^3/ uL (4.0-10.0) RBC 4.38 10^6/uL 10^6 /uL (4.1-5.3) Hgb 12.0 g/dL g/dL (11.7-16.6) Hct 37.8 % L % (42.0-52.0) MCV 86.3 fl fl (80-94) MCH 27.4 pg L pg (28.0-34.0) MCHC 31.7 g/dL g/dL (30.0-36.0) RDW 14.2 % % (12.1-15.1) Plt Count 162 10^3/cmm 10^3 /cmm (130-400) MPV 9.8 fL fL (7.4-10.4) Neut % (Auto) 75.9 % % Lymph % (Auto) 10.7 % % [place] % (Auto) 12.5 % % Eos % (Auto) 0.1 % % Baso % (Auto) 0.4 % % Neut # (Auto) 5.97 10^3/uL 10^3 /uL (1.8-7.7) Lymph # (Auto) 0.8 10^3/uL 10^3/ uL (0.8-4.8) [place] # (Auto) 1.0 10^3/uL H 10^ 3/uL (0.2-0.9) Eos # (Auto) 0.0 10^3/uL 10^3/ uL (0.0-0.8) Baso # (Auto) 0.0 10^3/uL 10^3/ uL (0.0-0.1) Nucleated RBC % (a uto) 0 % % Nucleated RBCs # 0.0 /100WBC /100W BC Sodium Potassium Chloride Carbon Dioxide Anion Gap BUN Creatinine GFR Calculation Glucose POC Glucose 69 mg/dL L mg/dL (70-110) Calculated Osmolal ity Calcium Phosphorus Magnesium Total Bilirubin AST ALT Alkaline Phosphata se C-Reactive Protein Total Protein Albumin Globulin Lipase Procalcitonin Urine Color Urine Appearance Urine pH Ur Specific Gravit y Urine Protein Urine Glucose (UA) Urine Ketones Urine Blood Urine Nitrate Urine Bilirubin Urine Urobilinogen Ur Leukocyte Rachel ase SARS-CoV-2 Ag (Rap id) Negative (Negative) 03/19/21 03/19/21 03/19/21 19:01 20:01 22:11 WBC RBC Hgb Hct MCV MCH MCHC RDW Plt Count MPV Neut % (Auto) Lymph % (Auto) [place] % (Auto) Eos % (Auto) Baso % (Auto) Neut # (Auto) Lymph # (Auto) [place] # (Auto) Eos # (Auto) Baso # (Auto) Nucleated RBC % (a uto) Nucleated RBCs # Sodium 131 mmol/L L mmol /L (136-145) Potassium 3.7 mmol/L mmol/L (3.5-5.1) Chloride 95 mmol/L L mmol/ L (98-107) Carbon Dioxide 21 mmol/L L mmol/ L (22-29) Anion Gap 18.7 (5-19) BUN 11 mg/dL mg/dL (8-23) Creatinine 0.3 mg/dL L mg/dL (0.7-1.2) GFR Calculation 304.8 mL/min H mL /min (90-130) Glucose 129 mg/dL H mg/dL (65-115) POC Glucose 140 mg/dL H mg/dL 165 mg/dL H mg/dL (70-110) (70-110) Calculated Osmolal ity 273 mOsm/kg L mOs m/kg (285-295) Calcium 8.9 mg/dL mg/dL (8.5-10.5) Phosphorus Magnesium Total Bilirubin 3.5 mg/dL H mg/dL (0.15-1.2) AST 55 U/L H U/L (0-40) ALT 65 U/L H U/L (0-41) Alkaline Phosphata se 373 IU/L H IU/L (40-130) C-Reactive Protein Total Protein 6.2 g/dL L g/dL (6.6-8.7) Albumin 3.2 g/dL L g/dL (3.5-5.2) Globulin 3.0 g/dL g/dL (1.3-4.6) Lipase 44 U/L U/L (13-60) Procalcitonin 0.23 ng/mL ng/mL (0-0.5) Urine Color Urine Appearance Urine pH Ur Specific Gravit y Urine Protein Urine Glucose (UA) Urine Ketones Urine Blood Urine Nitrate Urine Bilirubin Urine Urobilinogen Ur Leukocyte Rachel ase SARS-CoV-2 Ag (Rap id) 03/20/21 03/20/21 03/20/21 01:21 03:40 03:40 WBC 5.8 10^3/uL 10^3/ uL (4.0-10.0) RBC 4.27 10^6/uL 10^6 /uL (4.1-5.3) Hgb 11.9 g/dL g/dL (11.7-16.6) Hct 37.0 % L % (42.0-52.0) MCV 86.7 fl fl (80-94) MCH 27.9 pg L pg (28.0-34.0) MCHC 32.2 g/dL g/dL (30.0-36.0) RDW 14.3 % % (12.1-15.1) Plt Count 152 10^3/cmm 10^3 /cmm (130-400) MPV 10.0 fL fL (7.4-10.4) Neut % (Auto) 70.8 % % Lymph % (Auto) 13.4 % % [place] % (Auto) 14.3 % % Eos % (Auto) 0.7 % % Baso % (Auto) 0.5 % % Neut # (Auto) 4.10 10^3/uL 10^3 /uL (1.8-7.7) Lymph # (Auto) 0.8 10^3/uL 10^3/ uL (0.8-4.8) [place] # (Auto) 0.8 10^3/uL 10^3/ uL (0.2-0.9) Eos # (Auto) 0.0 10^3/uL 10^3/ uL (0.0-0.8) Baso # (Auto) 0.0 10^3/uL 10^3/ uL (0.0-0.1) Nucleated RBC % (a uto) 0 % % Nucleated RBCs # 0.0 /100WBC /100W BC Sodium 134 mmol/L L mmol /L (136-145) Potassium 3.9 mmol/L mmol/L (3.5-5.1) Chloride 100 mmol/L mmol/L (98-107) Carbon Dioxide 25 mmol/L mmol/L (22-29) Anion Gap 12.9 (5-19) BUN 11 mg/dL mg/dL (8-23) Creatinine 0.3 mg/dL L mg/dL (0.7-1.2) GFR Calculation 304.8 mL/min H mL /min (90-130) Glucose 141 mg/dL H mg/dL (65-115) POC Glucose 171 mg/dL H mg/dL (70-110) Calculated Osmolal ity 280 mOsm/kg L mOs m/kg (285-295) Calcium 8.0 mg/dL L mg/dL (8.5-10.5) Phosphorus 2.5 mg/dL mg/dL (2.5-4.5) Magnesium 1.9 mg/dL mg/dL (1.7-2.3) Total Bilirubin 3.6 mg/dL H mg/dL (0.15-1.2) AST 40 U/L U/L (0-40) ALT 57 U/L H U/L (0-41) Alkaline Phosphata se 435 IU/L H IU/L (40-130) C-Reactive Protein 141.1 mg/L H mg/L (0.0-4.9) Total Protein 5.6 g/dL L g/dL (6.6-8.7) Albumin 3.0 g/dL L g/dL (3.5-5.2) Globulin 2.6 g/dL g/dL (1.3-4.6) Lipase Procalcitonin Urine Color Urine Appearance Urine pH Ur Specific Gravit y Urine Protein Urine Glucose (UA) Urine Ketones Urine Blood Urine Nitrate Urine Bilirubin Urine Urobilinogen Ur Leukocyte Rachel ase SARS-CoV-2 Ag (Rap id) 03/20/21 03/20/21 03:40 06:23 WBC RBC Hgb Hct MCV MCH MCHC RDW Plt Count MPV Neut % (Auto) Lymph % (Auto) [place] % (Auto) Eos % (Auto) Baso % (Auto) Neut # (Auto) Lymph # (Auto) [place] # (Auto) Eos # (Auto) Baso # (Auto) Nucleated RBC % (a uto) Nucleated RBCs # Sodium Potassium Chloride Carbon Dioxide Anion Gap BUN Creatinine GFR Calculation Glucose POC Glucose 132 mg/dL H mg/dL (70-110) Calculated Osmolal ity Calcium Phosphorus Magnesium Total Bilirubin AST ALT Alkaline Phosphata se C-Reactive Protein Total Protein Albumin Globulin Lipase 31 U/L U/L (13-60) Procalcitonin Urine Color Urine Appearance Urine pH Ur Specific Gravit y Urine Protein Urine Glucose (UA) Urine Ketones Urine Blood Urine Nitrate Urine Bilirubin Urine Urobilinogen Ur Leukocyte Rachel ase SARS-CoV-2 Ag (Rap id) Discharge Plan Discharge Patient Disposition: Xfer Short-Term Hosp Clinical Impression: Presence of pancreatic duct stent, Idiopathic chronic pancreatitis Condition: Stable Referrals: Polo Wilson MD [Primary Care Provider] - Sign Out Sign Out Data: Patient Sign Out occurred on 03/19/21 at 16:42. Patient's care was discussed, and care was transferred from to Antonio Martin DO. Coding Level of Care Code ED Ict Business Development Manager for Chg Fwd Exam Comprehensive Documented by User: Tyrel Tipton DO 03/19/21 04:14 HPI - General Adult General: Chief complaint: General Medical Stated complaint: abd pains Time Seen by Provider: 03/18/21 08:49 PFSH ED PFSH: Medical History Acute pancreatitis Diabetes GERD (gastroesophageal reflux disease) Hyperlipidemia Idiopathic chronic pancreatitis Insomnia Presence of pancreatic duct stent PTSD (post-traumatic stress disorder) Surgical History History of back surgery S/P cholecystectomy Social History Smoking and tobacco status: current every day smoker cigarettes Packs smoked per day: 1 Alcohol intake: never Course Vital Signs: Vital signs: Vital Signs Temperature 97.6 F 03/18/21 08:15 Pulse Rate 58 L 03/20/21 15:09 Respiratory Rate 18 03/20/21 15:09 Blood Pressure 103/51 03/20/21 15:09 Pulse Oximetry 97 03/20/21 15:09 MDM - General Adult MDM Narrative: Medical decision making narrative: 61-year-old male checked out to me by the previous physician at shift change. This gentleman has chronic pancreatitis. He has a CT showing possible migration of his pancreatic duct stent. His labs were stable from his prior laboratory the previous day. His vitals remained stable. Currently heart rate 65. Saturations 95% on room air with respirations of 14. He is waiting on transfer to a tertiary care facility where his stent can be manipulated if needed. Nursing staff [facility] [place] about [facility] minutes ago. Bed is still unavailable, but we updated them on the patient's condition and vitals. They will call back when bed available. Lab Data: Labs: Lab Results 03/18/21 03/18/21 03/18/21 08:30 08:30 08:42 WBC 11.8 10^3/uL H 10 ^3/uL (4.0-10.0) RBC 4.97 10^6/uL 10^6 /uL (4.1-5.3) Hgb 13.9 g/dL g/dL (11.7-16.6) Hct 41.9 % L % (42.0-52.0) MCV 84.3 fl fl (80-94) MCH 28.0 pg pg (28.0-34.0) MCHC 33.2 g/dL g/dL (30.0-36.0) RDW 14.0 % % (12.1-15.1) Plt Count 230 10^3/cmm 10^3 /cmm (130-400) MPV 10.2 fL fL (7.4-10.4) Neut % (Auto) 74.8 % % Lymph % (Auto) 12.7 % % [place] % (Auto) 9.8 % % Eos % (Auto) 1.8 % % Baso % (Auto) 0.5 % % Neut # (Auto) 8.80 10^3/uL H 10 ^3/uL (1.8-7.7) Lymph # (Auto) 1.5 10^3/uL 10^3/ uL (0.8-4.8) [place] # (Auto) 1.2 10^3/uL H 10^ 3/uL (0.2-0.9) Eos # (Auto) 0.2 10^3/uL 10^3/ uL (0.0-0.8) Baso # (Auto) 0.1 10^3/uL 10^3/ uL (0.0-0.1) Nucleated RBC % (a uto) 0 % % Nucleated RBCs # 0.0 /100WBC /100W BC Sodium 131 mmol/L L mmol /L (136-145) Potassium 3.5 mmol/L mmol/L (3.5-5.1) Chloride 94 mmol/L L mmol/ L (98-107) Carbon Dioxide 26 mmol/L mmol/L (22-29) Anion Gap 14.5 (5-19) BUN 10 mg/dL mg/dL (8-23) Creatinine 0.4 mg/dL L mg/dL (0.7-1.2) GFR Calculation 218.7 mL/min H mL /min (90-130) Glucose 203 mg/dL H mg/dL (65-115) POC Glucose Calculated Osmolal ity 277 mOsm/kg L mOs m/kg (285-295) Calcium 9.1 mg/dL mg/dL (8.5-10.5) Phosphorus Magnesium Total Bilirubin 0.5 mg/dL mg/dL (0.15-1.2) AST 12 U/L U/L (0-40) ALT 34 U/L U/L (0-41) Alkaline Phosphata se 191 IU/L H IU/L (40-130) C-Reactive Protein Total Protein 6.8 g/dL g/dL (6.6-8.7) Albumin 3.7 g/dL g/dL (3.5-5.2) Globulin 3.1 g/dL g/dL (1.3-4.6) Lipase 158 U/L H U/L (13-60) Procalcitonin Urine Color Dark yellow (Yellow) Urine Appearance Clear (CLEAR) Urine pH 5 (5-7) Ur Specific Gravit y 1.030 (1.005-1.030) Urine Protein Neg (Negative) Urine Glucose (UA) 2+ H (Normal) Urine Ketones 1+ H (Negative) Urine Blood Neg (Negative) Urine Nitrate Negative (Negative) Urine Bilirubin 1+ H (Negative) Urine Urobilinogen Norm mg/dL mg/dL (Negative) Ur Leukocyte Rachel ase Negative (Negative) SARS-CoV-2 Ag (Rap id) 03/18/21 03/19/21 03/19/21 12:44 18:22 19:01 WBC 7.9 10^3/uL 10^3/ uL (4.0-10.0) RBC 4.38 10^6/uL 10^6 /uL (4.1-5.3) Hgb 12.0 g/dL g/dL (11.7-16.6) Hct 37.8 % L % (42.0-52.0) MCV 86.3 fl fl (80-94) MCH 27.4 pg L pg (28.0-34.0) MCHC 31.7 g/dL g/dL (30.0-36.0) RDW 14.2 % % (12.1-15.1) Plt Count 162 10^3/cmm 10^3 /cmm (130-400) MPV 9.8 fL fL (7.4-10.4) Neut % (Auto) 75.9 % % Lymph % (Auto) 10.7 % % [place] % (Auto) 12.5 % % Eos % (Auto) 0.1 % % Baso % (Auto) 0.4 % % Neut # (Auto) 5.97 10^3/uL 10^3 /uL (1.8-7.7) Lymph # (Auto) 0.8 10^3/uL 10^3/ uL (0.8-4.8) [place] # (Auto) 1.0 10^3/uL H 10^ 3/uL (0.2-0.9) Eos # (Auto) 0.0 10^3/uL 10^3/ uL (0.0-0.8) Baso # (Auto) 0.0 10^3/uL 10^3/ uL (0.0-0.1) Nucleated RBC % (a uto) 0 % % Nucleated RBCs # 0.0 /100WBC /100W BC Sodium Potassium Chloride Carbon Dioxide Anion Gap BUN Creatinine GFR Calculation Glucose POC Glucose 69 mg/dL L mg/dL (70-110) Calculated Osmolal ity Calcium Phosphorus Magnesium Total Bilirubin AST ALT Alkaline Phosphata se C-Reactive Protein Total Protein Albumin Globulin Lipase Procalcitonin Urine Color Urine Appearance Urine pH Ur Specific Gravit y Urine Protein Urine Glucose (UA) Urine Ketones Urine Blood Urine Nitrate Urine Bilirubin Urine Urobilinogen Ur Leukocyte Rachel ase SARS-CoV-2 Ag (Rap id) Negative (Negative) 03/19/21 03/19/21 03/19/21 19:01 20:01 22:11 WBC RBC Hgb Hct MCV MCH MCHC RDW Plt Count MPV Neut % (Auto) Lymph % (Auto) [place] % (Auto) Eos % (Auto) Baso % (Auto) Neut # (Auto) Lymph # (Auto) [place] # (Auto) Eos # (Auto) Baso # (Auto) Nucleated RBC % (a uto) Nucleated RBCs # Sodium 131 mmol/L L mmol /L (136-145) Potassium 3.7 mmol/L mmol/L (3.5-5.1) Chloride 95 mmol/L L mmol/ L (98-107) Carbon Dioxide 21 mmol/L L mmol/ L (22-29) Anion Gap 18.7 (5-19) BUN 11 mg/dL mg/dL (8-23) Creatinine 0.3 mg/dL L mg/dL (0.7-1.2) GFR Calculation 304.8 mL/min H mL /min (90-130) Glucose 129 mg/dL H mg/dL (65-115) POC Glucose 140 mg/dL H mg/dL 165 mg/dL H mg/dL (70-110) (70-110) Calculated Osmolal ity 273 mOsm/kg L mOs m/kg (285-295) Calcium 8.9 mg/dL mg/dL (8.5-10.5) Phosphorus Magnesium Total Bilirubin 3.5 mg/dL H mg/dL (0.15-1.2) AST 55 U/L H U/L (0-40) ALT 65 U/L H U/L (0-41) Alkaline Phosphata se 373 IU/L H IU/L (40-130) C-Reactive Protein Total Protein 6.2 g/dL L g/dL (6.6-8.7) Albumin 3.2 g/dL L g/dL (3.5-5.2) Globulin 3.0 g/dL g/dL (1.3-4.6) Lipase 44 U/L U/L (13-60) Procalcitonin 0.23 ng/mL ng/mL (0-0.5) Urine Color Urine Appearance Urine pH Ur Specific Gravit y Urine Protein Urine Glucose (UA) Urine Ketones Urine Blood Urine Nitrate Urine Bilirubin Urine Urobilinogen Ur Leukocyte Rachel ase SARS-CoV-2 Ag (Rap id) 03/20/21 03/20/21 03/20/21 01:21 03:40 03:40 WBC 5.8 10^3/uL 10^3/ uL (4.0-10.0) RBC 4.27 10^6/uL 10^6 /uL (4.1-5.3) Hgb 11.9 g/dL g/dL (11.7-16.6) Hct 37.0 % L % (42.0-52.0) MCV 86.7 fl fl (80-94) MCH 27.9 pg L pg (28.0-34.0) MCHC 32.2 g/dL g/dL (30.0-36.0) RDW 14.3 % % (12.1-15.1) Plt Count 152 10^3/cmm 10^3 /cmm (130-400) MPV 10.0 fL fL (7.4-10.4) Neut % (Auto) 70.8 % % Lymph % (Auto) 13.4 % % [place] % (Auto) 14.3 % % Eos % (Auto) 0.7 % % Baso % (Auto) 0.5 % % Neut # (Auto) 4.10 10^3/uL 10^3 /uL (1.8-7.7) Lymph # (Auto) 0.8 10^3/uL 10^3/ uL (0.8-4.8) [place] # (Auto) 0.8 10^3/uL 10^3/ uL (0.2-0.9) Eos # (Auto) 0.0 10^3/uL 10^3/ uL (0.0-0.8) Baso # (Auto) 0.0 10^3/uL 10^3/ uL (0.0-0.1) Nucleated RBC % (a uto) 0 % % Nucleated RBCs # 0.0 /100WBC /100W BC Sodium 134 mmol/L L mmol /L (136-145) Potassium 3.9 mmol/L mmol/L (3.5-5.1) Chloride 100 mmol/L mmol/L (98-107) Carbon Dioxide 25 mmol/L mmol/L (22-29) Anion Gap 12.9 (5-19) BUN 11 mg/dL mg/dL (8-23) Creatinine 0.3 mg/dL L mg/dL (0.7-1.2) GFR Calculation 304.8 mL/min H mL /min (90-130) Glucose 141 mg/dL H mg/dL (65-115) POC Glucose 171 mg/dL H mg/dL (70-110) Calculated Osmolal ity 280 mOsm/kg L mOs m/kg (285-295) Calcium 8.0 mg/dL L mg/dL (8.5-10.5) Phosphorus 2.5 mg/dL mg/dL (2.5-4.5) Magnesium 1.9 mg/dL mg/dL (1.7-2.3) Total Bilirubin 3.6 mg/dL H mg/dL (0.15-1.2) AST 40 U/L U/L (0-40) ALT 57 U/L H U/L (0-41) Alkaline Phosphata se 435 IU/L H IU/L (40-130) C-Reactive Protein 141.1 mg/L H mg/L (0.0-4.9) Total Protein 5.6 g/dL L g/dL (6.6-8.7) Albumin 3.0 g/dL L g/dL (3.5-5.2) Globulin 2.6 g/dL g/dL (1.3-4.6) Lipase Procalcitonin Urine Color Urine Appearance Urine pH Ur Specific Gravit y Urine Protein Urine Glucose (UA) Urine Ketones Urine Blood Urine Nitrate Urine Bilirubin Urine Urobilinogen Ur Leukocyte Rachel ase SARS-CoV-2 Ag (Rap id) 03/20/21 03/20/21 03:40 06:23 WBC RBC Hgb Hct MCV MCH MCHC RDW Plt Count MPV Neut % (Auto) Lymph % (Auto) [place] % (Auto) Eos % (Auto) Baso % (Auto) Neut # (Auto) Lymph # (Auto) [place] # (Auto) Eos # (Auto) Baso # (Auto) Nucleated RBC % (a uto) Nucleated RBCs # Sodium Potassium Chloride Carbon Dioxide Anion Gap BUN Creatinine GFR Calculation Glucose POC Glucose 132 mg/dL H mg/dL (70-110) Calculated Osmolal ity Calcium Phosphorus Magnesium Total Bilirubin AST ALT Alkaline Phosphata se C-Reactive Protein Total Protein Albumin Globulin Lipase 31 U/L U/L (13-60) Procalcitonin Urine Color Urine Appearance Urine pH Ur Specific Gravit y Urine Protein Urine Glucose (UA) Urine Ketones Urine Blood Urine Nitrate Urine Bilirubin Urine Urobilinogen Ur Leukocyte Rachel ase SARS-CoV-2 Ag (Rap id) Discharge Plan Discharge Patient Disposition: Xfer Short-Term Hosp Clinical Impression: Presence of pancreatic duct stent, Idiopathic chronic pancreatitis Condition: Stable Referrals: Polo Wilson MD [Primary Care Provider] - Sign Out Sign Out Data: Patient Sign Out occurred on 03/19/21 at 16:42. Patient's care was discussed, and care was transferred from to Antonio Martin DO. Coding Level of Care Code ED Ict Business Development Manager for Chg Fwd Exam Comprehensive Documented by User: Antonio Martin DO 03/20/21 17:47 HPI - General Adult General: Chief complaint: General Medical Stated complaint: abd pains Time Seen by Provider: 03/18/21 08:49 PFS ED PFSH: Medical History Acute pancreatitis Diabetes GERD (gastroesophageal reflux disease) Hyperlipidemia Idiopathic chronic pancreatitis Insomnia Presence of pancreatic duct stent PTSD (post-traumatic stress disorder) Surgical History History of back surgery S/P cholecystectomy Social History Smoking and tobacco status: current every day smoker cigarettes Packs smoked per day: 1 Alcohol intake: never Course Vital Signs: Vital signs: Vital Signs Temperature 97.6 F 03/18/21 08:15 Pulse Rate 58 L 03/20/21 15:09 Respiratory Rate 18 03/20/21 15:09 Blood Pressure 103/51 03/20/21 15:09 Pulse Oximetry 97 03/20/21 15:09 MDM - General Adult MDM Narrative: Medical decision making narrative: March 19, 2021 4:51 PM Care assumed at change of shift the plan had been to transfer him however were not able to get a bed. [facility] is not sure when they will have a bed available to receive him. Repeat basic labs ordered including a CBC CMP and a lipase. Also renewed his maintenance IV fluids. Consult hospitalist for medical management while we are waiting on transfer. I would admit the patient to the floor pending a bed and then transfer and once a bed becomes available however hospital census is at capacity and there are no beds available on the [facility] floor at this time. We may evaluate that possibility going forward unfortu nately we do not know for sure when a bed will become available at [facility]. 03/20/2021 7:30 AM. Patient remains stable medical management by hospitalist. Patient did have repeat labs this morning which were reviewed. Lipase is decreased, T bili and alk phos are increasing. White count normalized. We are still awaiting for [facility] to call with hospital bed. Appreciate hospitalist comanagement. Is very [facility] called with a bed availability. Transferred via ambulance in stable condition. Lab Data: Labs: Lab Results 03/18/21 03/18/21 03/18/21 08:30 08:30 08:42 WBC 11.8 10^3/uL H 10 ^3/uL (4.0-10.0) RBC 4.97 10^6/uL 10^6 /uL (4.1-5.3) Hgb 13.9 g/dL g/dL (11.7-16.6) Hct 41.9 % L % (42.0-52.0) MCV 84.3 fl fl (80-94) MCH 28.0 pg pg (28.0-34.0) MCHC 33.2 g/dL g/dL (30.0-36.0) RDW 14.0 % % (12.1-15.1) Plt Count 230 10^3/cmm 10^3 /cmm (130-400) MPV 10.2 fL fL (7.4-10.4) Neut % (Auto) 74.8 % % Lymph % (Auto) 12.7 % % [place] % (Auto) 9.8 % % Eos % (Auto) 1.8 % % Baso % (Auto) 0.5 % % Neut # (Auto) 8.80 10^3/uL H 10 ^3/uL (1.8-7.7) Lymph # (Auto) 1.5 10^3/uL 10^3/ uL (0.8-4.8) [place] # (Auto) 1.2 10^3/uL H 10^ 3/uL (0.2-0.9) Eos # (Auto) 0.2 10^3/uL 10^3/ uL (0.0-0.8) Baso # (Auto) 0.1 10^3/uL 10^3/ uL (0.0-0.1) Nucleated RBC % (a uto) 0 % % Nucleated RBCs # 0.0 /100WBC /100W BC Sodium 131 mmol/L L mmol /L (136-145) Potassium 3.5 mmol/L mmol/L (3.5-5.1) Chloride 94 mmol/L L mmol/ L (98-107) Carbon Dioxide 26 mmol/L mmol/L (22-29) Anion Gap 14.5 (5-19) BUN 10 mg/dL mg/dL (8-23) Creatinine 0.4 mg/dL L mg/dL (0.7-1.2) GFR Calculation 218.7 mL/min H mL /min (90-130) Glucose 203 mg/dL H mg/dL (65-115) POC Glucose Calculated Osmolal ity 277 mOsm/kg L mOs m/kg (285-295) Calcium 9.1 mg/dL mg/dL (8.5-10.5) Phosphorus Magnesium Total Bilirubin 0.5 mg/dL mg/dL (0.15-1.2) AST 12 U/L U/L (0-40) ALT 34 U/L U/L (0-41) Alkaline Phosphata se 191 IU/L H IU/L (40-130) C-Reactive Protein Total Protein 6.8 g/dL g/dL (6.6-8.7) Albumin 3.7 g/dL g/dL (3.5-5.2) Globulin 3.1 g/dL g/dL (1.3-4.6) Lipase 158 U/L H U/L (13-60) Procalcitonin Urine Color Dark yellow (Yellow) Urine Appearance Clear (CLEAR) Urine pH 5 (5-7) Ur Specific Gravit y 1.030 (1.005-1.030) Urine Protein Neg (Negative) Urine Glucose (UA) 2+ H (Normal) Urine Ketones 1+ H (Negative) Urine Blood Neg (Negative) Urine Nitrate Negative (Negative) Urine Bilirubin 1+ H (Negative) Urine Urobilinogen Norm mg/dL mg/dL (Negative) Ur Leukocyte Rachel ase Negative (Negative) SARS-CoV-2 Ag (Rap id) 03/18/21 03/19/21 03/19/21 12:44 18:22 19:01 WBC 7.9 10^3/uL 10^3/ uL (4.0-10.0) RBC 4.38 10^6/uL 10^6 /uL (4.1-5.3) Hgb 12.0 g/dL g/dL (11.7-16.6) Hct 37.8 % L % (42.0-52.0) MCV 86.3 fl fl (80-94) MCH 27.4 pg L pg (28.0-34.0) MCHC 31.7 g/dL g/dL (30.0-36.0) RDW 14.2 % % (12.1-15.1) Plt Count 162 10^3/cmm 10^3 /cmm (130-400) MPV 9.8 fL fL (7.4-10.4) Neut % (Auto) 75.9 % % Lymph % (Auto) 10.7 % % [place] % (Auto) 12.5 % % Eos % (Auto) 0.1 % % Baso % (Auto) 0.4 % % Neut # (Auto) 5.97 10^3/uL 10^3 /uL (1.8-7.7) Lymph # (Auto) 0.8 10^3/uL 10^3/ uL (0.8-4.8) [place] # (Auto) 1.0 10^3/uL H 10^ 3/uL (0.2-0.9) Eos # (Auto) 0.0 10^3/uL 10^3/ uL (0.0-0.8) Baso # (Auto) 0.0 10^3/uL 10^3/ uL (0.0-0.1) Nucleated RBC % (a uto) 0 % % Nucleated RBCs # 0.0 /100WBC /100W BC Sodium Potassium Chloride Carbon Dioxide Anion Gap BUN Creatinine GFR Calculation Glucose POC Glucose 69 mg/dL L mg/dL (70-110) Calculated Osmolal ity Calcium Phosphorus Magnesium Total Bilirubin AST ALT Alkaline Phosphata se C-Reactive Protein Total Protein Albumin Globulin Lipase Procalcitonin Urine Color Urine Appearance Urine pH Ur Specific Gravit y Urine Protein Urine Glucose (UA) Urine Ketones Urine Blood Urine Nitrate Urine Bilirubin Urine Urobilinogen Ur Leukocyte Rachel ase SARS-CoV-2 Ag (Rap id) Negative (Negative) 03/19/21 03/19/21 03/19/21 19:01 20:01 22:11 WBC RBC Hgb Hct MCV MCH MCHC RDW Plt Count MPV Neut % (Auto) Lymph % (Auto) [place] % (Auto) Eos % (Auto) Baso % (Auto) Neut # (Auto) Lymph # (Auto) [place] # (Auto) Eos # (Auto) Baso # (Auto) Nucleated RBC % (a uto) Nucleated RBCs # Sodium 131 mmol/L L mmol /L (136-145) Potassium 3.7 mmol/L mmol/L (3.5-5.1) Chloride 95 mmol/L L mmol/ L (98-107) Carbon Dioxide 21 mmol/L L mmol/ L (22-29) Anion Gap 18.7 (5-19) BUN 11 mg/dL mg/dL (8-23) Creatinine 0.3 mg/dL L mg/dL (0.7-1.2) GFR Calculation 304.8 mL/min H mL /min (90-130) Glucose 129 mg/dL H mg/dL (65-115) POC Glucose 140 mg/dL H mg/dL 165 mg/dL H mg/dL (70-110) (70-110) Calculated Osmolal ity 273 mOsm/kg L mOs m/kg (285-295) Calcium 8.9 mg/dL mg/dL (8.5-10.5) Phosphorus Magnesium Total Bilirubin 3.5 mg/dL H mg/dL (0.15-1.2) AST 55 U/L H U/L (0-40) ALT 65 U/L H U/L (0-41) Alkaline Phosphata se 373 IU/L H IU/L (40-130) C-Reactive Protein Total Protein 6.2 g/dL L g/dL (6.6-8.7) Albumin 3.2 g/dL L g/dL (3.5-5.2) Globulin 3.0 g/dL g/dL (1.3-4.6) Lipase 44 U/L U/L (13-60) Procalcitonin 0.23 ng/mL ng/mL (0-0.5) Urine Color Urine Appearance Urine pH Ur Specific Gravit y Urine Protein Urine Glucose (UA) Urine Ketones Urine Blood Urine Nitrate Urine Bilirubin Urine Urobilinogen Ur Leukocyte Rachel ase SARS-CoV-2 Ag (Rap id) 03/20/21 03/20/21 03/20/21 01:21 03:40 03:40 WBC 5.8 10^3/uL 10^3/ uL (4.0-10.0) RBC 4.27 10^6/uL 10^6 /uL (4.1-5.3) Hgb 11.9 g/dL g/dL (11.7-16.6) Hct 37.0 % L % (42.0-52.0) MCV 86.7 fl fl (80-94) MCH 27.9 pg L pg (28.0-34.0) MCHC 32.2 g/dL g/dL (30.0-36.0) RDW 14.3 % % (12.1-15.1) Plt Count 152 10^3/cmm 10^3 /cmm (130-400) MPV 10.0 fL fL (7.4-10.4) Neut % (Auto) 70.8 % % Lymph % (Auto) 13.4 % % [place] % (Auto) 14.3 % % Eos % (Auto) 0.7 % % Baso % (Auto) 0.5 % % Neut # (Auto) 4.10 10^3/uL 10^3 /uL (1.8-7.7) Lymph # (Auto) 0.8 10^3/uL 10^3/ uL (0.8-4.8) [place] # (Auto) 0.8 10^3/uL 10^3/ uL (0.2-0.9) Eos # (Auto) 0.0 10^3/uL 10^3/ uL (0.0-0.8) Baso # (Auto) 0.0 10^3/uL 10^3/ uL (0.0-0.1) Nucleated RBC % (a uto) 0 % % Nucleated RBCs # 0.0 /100WBC /100W BC Sodium 134 mmol/L L mmol /L (136-145) Potassium 3.9 mmol/L mmol/L (3.5-5.1) Chloride 100 mmol/L mmol/L (98-107) Carbon Dioxide 25 mmol/L mmol/L (22-29) Anion Gap 12.9 (5-19) BUN 11 mg/dL mg/dL (8-23) Creatinine 0.3 mg/dL L mg/dL (0.7-1.2) GFR Calculation 304.8 mL/min H mL /min (90-130) Glucose 141 mg/dL H mg/dL (65-115) POC Glucose 171 mg/dL H mg/dL (70-110) Calculated Osmolal ity 280 mOsm/kg L mOs m/kg (285-295) Calcium 8.0 mg/dL L mg/dL (8.5-10.5) Phosphorus 2.5 mg/dL mg/dL (2.5-4.5) Magnesium 1.9 mg/dL mg/dL (1.7-2.3) Total Bilirubin 3.6 mg/dL H mg/dL (0.15-1.2) AST 40 U/L U/L (0-40) ALT 57 U/L H U/L (0-41) Alkaline Phosphata se 435 IU/L H IU/L (40-130) C-Reactive Protein 141.1 mg/L H mg/L (0.0-4.9) Total Protein 5.6 g/dL L g/dL (6.6-8.7) Albumin 3.0 g/dL L g/dL (3.5-5.2) Globulin 2.6 g/dL g/dL (1.3-4.6) Lipase Procalcitonin Urine Color Urine Appearance Urine pH Ur Specific Gravit y Urine Protein Urine Glucose (UA) Urine Ketones Urine Blood Urine Nitrate Urine Bilirubin Urine Urobilinogen Ur Leukocyte Rachel ase SARS-CoV-2 Ag (Rap id) 03/20/21 03/20/21 03:40 06:23 WBC RBC Hgb Hct MCV MCH MCHC RDW Plt Count MPV Neut % (Auto) Lymph % (Auto) [place] % (Auto) Eos % (Auto) Baso % (Auto) Neut # (Auto) Lymph # (Auto) [place] # (Auto) Eos # (Auto) Baso # (Auto) Nucleated RBC % (a uto) Nucleated RBCs # Sodium Potassium Chloride Carbon Dioxide Anion Gap BUN Creatinine GFR Calculation Glucose POC Glucose 132 mg/dL H mg/dL (70-110) Calculated Osmolal ity Calcium Phosphorus Magnesium Total Bilirubin AST ALT Alkaline Phosphata se C-Reactive Protein Total Protein Albumin Globulin Lipase 31 U/L U/L (13-60) Procalcitonin Urine Color Urine Appearance Urine pH Ur Specific Gravit y Urine Protein Urine Glucose (UA) Urine Ketones Urine Blood Urine Nitrate Urine Bilirubin Urine Urobilinogen Ur Leukocyte Rachel ase SARS-CoV-2 Ag (Rap id) Discharge Plan Discharge Patient Disposition: Xfer Short-Term Hosp Clinical Impression: Presence of pancreatic duct stent, Idiopathic chronic pancreatitis Condition: Stable Referrals: Polo Wilson MD [Primary Care Provider] - Sign Out Sign Out Data: Patient Sign Out occurred on 03/19/21 at 16:42. Patient's care was discussed, and care was transferred from to Antonio Martin DO. Coding Level of Care Code ED Ict Business Development Manager for g Fwd Exam Comprehensive
[2021-03-18 08:51] LABS: Alanine Aminotransferase 34 U/L (0-41); Albumin Level 3.7 g/dL (3.5-5.2); Alkaline Phosphatase 191 IU/L (40-130); Aspartate Amino Transferase 12 U/L (0-40); Blood Urea Nitrogen 10 mg/dL (8-23); Calcium 9.1 mg/dL (8.5-10.5); Carbon Dioxide 26 mmol/L (22-29); Chloride 94 mmol/L (98-107); Globulin 3.1 g/dL (1.3-4.6); Glomerular Filtration Rate 218.7 mL/min (90-130); Glucose 203 mg/dL (65-115); Lipase 158 U/L (13-60); Osmolality Calculated 277 mOsm/kg (285-295); Sodium 131 mmol/L (136-145); Total Bilirubin 0.5 mg/dL (0.15-1.2); Total Protein 6.8 g/dL (6.6-8.7)
[2021-03-18 09:18] LABS: Anion Gap 14.5 (5-19); Potassium 3.5 mmol/L (3.5-5.1)
[2021-03-18 09:22] LABS: Add Urine Microscopic? NO; Charge for UA Resulting for Rev
[2021-03-18 09:27] LABS: Bilirubin Urine 1+ (Negative); Blood Urine Neg (Negative); Glucose Urine UA 2+ (Normal); Ketones Urine 1+ (Negative); Leukocyte Esterase Urine Negative (Negative); Nitrate Urine Negative (Negative); Protein Urine Neg (Negative); Urine Appearance Clear (CLEAR); Urine Color Dark Yellow (Yellow); Urobilinogen Urine Norm (Negative); pH Urine 5 (5-7)
[2021-03-18] MEDS: sodium chloride 0.9% 1,000 ML 999 ML IV ×2 (09:33→11:29)
[2021-03-18] MEDS: ondansetron 2 mg/ML SDV 2 mL 4 MG IVP (09:34)
[2021-03-18] MEDS: morphine 4 mg/mL SDV 1 mL IVP ×7 (09:35→23:09)
[2021-03-18 13:09] LABS: SARS Covid-2 Antigen Negative (Negative)
[2021-03-18] MEDS: sodium chloride 0.9% 1,000 ML 150 ML IV (14:33)
[2021-03-19] VITALS (26 sets, daily range): BP systolic 89–113; BP diastolic 52–62; PULSE 69–96; RESP 6–25; O2SAT 92–99
[2021-03-19] MEDS: morphine 4 mg/mL SDV 1 mL IVP ×7 (02:38→20:05)
--- NOTE | 2021-03-19 02:42 | PC.NURSE ---
pt pulled off all monitor wires
[2021-03-19] MEDS: Fleet Enema 133 mL Enema PR ×2 (02:45→20:47)
--- NOTE | 2021-03-19 03:30 | PC.NURSE ---
pt got 2L of NS total
--- NOTE | 2021-03-19 04:14 | PC.NURSE ---
Talked to transfer center [facility], updated them on pt status and VS. They still do not have a bed available but stated they would call when a bed becomes available
[2021-03-19] MEDS: sodium chloride 0.9% 1,000 ML 150 ML IV (06:57)
--- NOTE | 2021-03-19 06:57 | PC.NURSE ---
report given to alden
--- NOTE | 2021-03-19 17:12 | P.CONIM_ITS ---
Providers/Reason For Consult Consulting Physician/Specialty*: ER Reason for Consult*: medical managment Primary Care Provider: Polo Wilson MD History of Present Illness History of Present Illness Pranav Johnson is a 61 year old male Review of Systems Const: Denies: fever(s) Eyes: Denies: change in vision ENMT: Denies: throat pain Card: Denies: chest pain Resp: Denies: dyspnea GI: Reports: abdominal pain, nausea, vomiting and bloating; Denies: coffee ground emesis, diarrhea or constipation : Denies: flank pain Musc: Denies: neck pain or back pain Skin/Breast: Denies: rash Neuro: Denies: headache(s), numbness in extremities or weakness in extremities Psych: Denies: anxiety or depression Endo: Denies: polyuria or polydipsia Meds/Allergies Home Medications and Allergies Home Medications Medication Instructions Recorded Confirmed Last Taken Type fluticasone propionate 50 1 spray INTRANASAL BID PRN 04/01/19 03/18/21 08/01/20 History mcg/actuation nasal spray,suspension blood sugar diagnostic #10 each 04/27/20 03/18/21 Unknown Rx blood-glucose meter #1 each 04/27/20 03/18/21 Unknown Rx lovastatin 40 mg PO BEDTIME 06/13/20 03/18/21 03/17/21 History lactulose 20 g PO DAILY PRN #600 ml 11/19/20 03/18/21 Unknown Rx bisacodyl [Ducodyl (bisacodyl)] 5 - 10 mg PO DAILY PRN 12/19/20 03/18/21 Unknown History insulin glargine U-300 conc 20 unit SUBCUT DAILY@15 12/19/20 03/18/21 03/17/21 History [Toujeo SoloStar U-300 Insulin] [id number] [Creon] See Rx Instructions .ROUTE .COMPLEX 12/19/20 03/18/21 03/17/21 History pregabalin 50 mg PO BID 12/19/20 03/18/21 12/18/20 History ondansetron HCl [Zofran] 4 mg PO Q6H PRN #10 tab 03/17/21 03/18/21 Unknown Rx oxycodone-acetaminophen [Percocet] 1 tab PO Q6H PRN #10 tab 03/17/21 03/18/21 Unknown Rx lorazepam 1 mg PO DAILY@06 03/18/21 03/18/21 03/17/21 History Allergies Allergy/AdvReac Type Severity Reaction Status Date / Time nabumetone [From Relafen] Allergy Severe ALGY-Anaphy Verified 03/18/21 08:15 laxis Current Medications Current Medications Generic Name Dose Route Start Last Admin Trade Name Freq PRN Reason Stop Dose Admin Morphine Sulfate 4 mg 03/18/21 08:59 03/19/21 16:03 Morphine 4 Mg/Ml Sdv 1 Ml IVP 4 mg Q1H PRN Administration pain PFSH Acute PFSH: Medical History Acute pancreatitis Diabetes GERD (gastroesophageal reflux disease) Hyperlipidemia Idiopathic chronic pancreatitis Insomnia Presence of pancreatic duct stent PTSD (post-traumatic stress disorder) Surgical History History of back surgery S/P cholecystectomy Social History Smoking and tobacco status: current every day smoker cigarettes Packs smoked per day: 1 Alcohol intake: never Vitals/I&O/Wt Last Vital Signs Temp 97.6 F 03/18/21 08:15 Pulse 76 03/19/21 16:00 Resp 21 H 03/19/21 16:03 BP 89/52 03/19/21 16:00 Pulse Ox 94 03/19/21 16:00 Weight last 48 hrs Weight 64.864 kg Physical Exam Const: COMMON NORMALS: no acute distress and patient oriented x3 GENERAL APPEARANCE: cooperative and comfortable HENMT: COMMON NORMALS: normocephalic HEAD & SCALP: normocephalic Eye: COMMON NORMALS: Equal, round and reactive pupils present and EOMs intact bilaterally GENERAL EYE: appearance normal, both eyes and all related structures PUPIL: Yes Equal, round and reactive pupils present Neck/C-Spine: COMMON NORMALS: full ROM, no lymphadenopathy and Thyroid normal THYROID: Thyroid normal Lymph: LYMPHATIC: no lymphadenopathy noted Resp: COMMON NORMALS: normal respiratory effort, No retractions, No use of accessory muscles and clear to auscultation bilaterally AUSCULTATION: clear to auscultation bilaterally Cardio: COMMON NORMALS: regular rate, regular rhythm, S1 normal heart sound present, S2 normal heart sound present, No gallops present (Cardio), No clicks present (Cardio) and No murmurs present (Cardio) RATE: regular rate RHYTHM: regular rhythm HEART SOUNDS: S1 normal heart sound present and S2 normal heart sound present GI: COMMON NORMALS: Normal to inspection, nondistended, normoactive bowel sounds present, Soft to palpation and non-tender PALPATION: Yes Soft to palpation, Yes Tenderness to palpation present (GI) Details: LUQ and RUQ, No Guarding due to palpation present (GI) and No Rigid due to palpation Extremity: COMMON NORMALS: normal to inspection, full ROM and no pedal edema Neuro: COMMON NORMALS: patient oriented x3, CN's II-XII intact bilaterally, moves all extremities and no focal motor deficits Psych: COMMON NORMALS: mental status grossly normal, Normal thought process present and cooperative THOUGHT PROCESS: Normal thought process present A&P Assessment and plan (1) Presence of pancreatic duct stent: -1. Severe stable chronic calcific pancreatitis. 2. Stable cholecystectomy. 3. Stable choledocoduodenal stent. 4. Interval appearance of left pneumobilia which can be normal following cholecystectomy and/or choledocoduodenal stent. 5. Probable partial distal migration of the pancreaticoduodenal stent. -Pancreatic duct migration -Patient is in the process being transferred [facility], awaiting a bed -Hospitalist team was called for medical management -We will keep patient n.p.o. -Gentle IV fluids -Morphine for pain control -Zofran for nausea -Patient is complaining of severe abdominal constipation, wants to try to Fleet enema -continue Creon -Full code -Heparin for DVT prophylaxis Diabetes mellitus associate pancreatic disease, low-dose sliding scale Status: Acute (2) Idiopathic chronic pancreatitis: Status: Acute (3) Diabetes mellitus associated with pancreatic disease: Status: Acute (4) Pancreatic stent migration: Status: Acute Coding Level of Care Code Acute Trials Manager for Chg Fwd Diagnoses Presence of pancreatic duct stent Z96.89 Idiopathic chronic pancreatitis K86.1 Diabetes mellitus associated with pancreatic disease E11.69; K86.9 Pancreatic stent migration T85.528A
[2021-03-19 18:24] LABS: Glucose Point of Care 69 mg/dL (70-110)
[2021-03-19] MEDS: dextrose 50% syringe 50 mL 25 ML IVP (18:33)
[2021-03-19] MEDS: docusate sodium 100 mg Capsule PO (18:35)
[2021-03-19] MEDS: dextrose 5%-ns + KCl 20 20 MEQ/1,000 ML BAG 150 MEQ IV (18:40)
[2021-03-19] MEDS: heparin 5,000 unit/mL INJ 1 mL 5000 UNIT SUBCUT (18:43)
[2021-03-19 19:07] LABS: Basophils % 0.4 %; Eosinophils % 0.1 %; Hematocrit 37.8 % (42.0-52.0); Lymphocytes # 0.8 10^3/uL (0.8-4.8); Lymphocytes % 10.7 %; Mean Corpuscular HGB Conc 31.7 g/dL (30.0-36.0); Mean Corpuscular Hemoglobin 27.4 pg (28.0-34.0); Mean Corpuscular Volume 86.3 fl (80-94); Mean Platelet Volume 9.8 fL (7.4-10.4); Monocytes % 12.5 %; Neutrophils # 5.97 10^3/uL (1.8-7.7); Neutrophils % 75.9 %; Nucleated Red Blood Cells % 0 %; Platelet Count 162 10^3/cmm (130-400); Red Blood Count 4.38 10^6/uL (4.1-5.3); Red Cell Distribution Width 14.2 % (12.1-15.1); White Blood Count 7.9 10^3/uL (4.0-10.0)
[2021-03-19 19:28] LABS: Alanine Aminotransferase 65 U/L (0-41); Albumin Level 3.2 g/dL (3.5-5.2); Alkaline Phosphatase 373 IU/L (40-130); Anion Gap 18.7 (5-19); Aspartate Amino Transferase 55 U/L (0-40); Blood Urea Nitrogen 11 mg/dL (8-23); Calcium 8.9 mg/dL (8.5-10.5); Carbon Dioxide 21 mmol/L (22-29); Chloride 95 mmol/L (98-107); Glomerular Filtration Rate 304.8 mL/min (90-130); Glucose 129 mg/dL (65-115); Lipase 44 U/L (13-60); Osmolality Calculated 273 mOsm/kg (285-295); Potassium 3.7 mmol/L (3.5-5.1); Sodium 131 mmol/L (136-145); Total Bilirubin 3.5 mg/dL (0.15-1.2); Total Protein 6.2 g/dL (6.6-8.7)
[2021-03-19 19:35] LABS: Procalcitonin 0.23 ng/mL (0-0.5)
[2021-03-19 20:03] LABS: Glucose Point of Care 140 mg/dL (70-110)
[2021-03-19] MEDS: atorvastatin 40 mg Tablet 20 MG PO (20:05)
[2021-03-19] MEDS: pregabalin 50 mg Capsule PO (20:18)
[2021-03-19 22:15] LABS: Glucose Point of Care 165 mg/dL (70-110)
[2021-03-20] VITALS (8 sets, daily range): BP systolic 103–118; BP diastolic 51–84; PULSE 58–84; RESP 16–20; O2SAT 96–99
[2021-03-20] MEDS: morphine 4 mg/mL SDV 1 mL IVP ×6 (01:12→14:59)
[2021-03-20 01:24] LABS: Glucose Point of Care 171 mg/dL (70-110)
[2021-03-20 03:54] LABS: Basophils % 0.5 %; Eosinophils % 0.7 %; Hemoglobin 11.9 g/dL (11.7-16.6); Lymphocytes # 0.8 10^3/uL (0.8-4.8); Lymphocytes % 13.4 %; Mean Corpuscular HGB Conc 32.2 g/dL (30.0-36.0); Mean Corpuscular Hemoglobin 27.9 pg (28.0-34.0); Mean Corpuscular Volume 86.7 fl (80-94); Monocytes # 0.8 10^3/uL (0.2-0.9); Monocytes % 14.3 %; Neutrophils % 70.8 %; Nucleated Red Blood Cells % 0 %; Platelet Count 152 10^3/cmm (130-400); Red Blood Count 4.27 10^6/uL (4.1-5.3); Red Cell Distribution Width 14.3 % (12.1-15.1); White Blood Count 5.8 10^3/uL (4.0-10.0)
[2021-03-20 04:17] LABS: Alanine Aminotransferase 57 U/L (0-41); Alkaline Phosphatase 435 IU/L (40-130); Anion Gap 12.9 (5-19); Aspartate Amino Transferase 40 U/L (0-40); Blood Urea Nitrogen 11 mg/dL (8-23); C Reactive Protein 141.1 mg/L (0.0-4.9); Carbon Dioxide 25 mmol/L (22-29); Chloride 100 mmol/L (98-107); Globulin 2.6 g/dL (1.3-4.6); Glomerular Filtration Rate 304.8 mL/min (90-130); Glucose 141 mg/dL (65-115); Magnesium 1.9 mg/dL (1.7-2.3); Osmolality Calculated 280 mOsm/kg (285-295); Phosphorus 2.5 mg/dL (2.5-4.5); Potassium 3.9 mmol/L (3.5-5.1); Sodium 134 mmol/L (136-145); Total Bilirubin 3.6 mg/dL (0.15-1.2); Total Protein 5.6 g/dL (6.6-8.7)
[2021-03-20 04:19] LABS: Lipase 31 U/L (13-60)
[2021-03-20 06:26] LABS: Glucose Point of Care 132 mg/dL (70-110)
[2021-03-20] MEDS: sodium chloride 0.9% 1,000 ML 100 ML IV (06:28)
[2021-03-20] MEDS: pantoprazole 40 mg SDV IVP (06:28)
[2021-03-20] MEDS: heparin 5,000 unit/mL INJ 1 mL 5000 UNIT SUBCUT (06:29)
--- NOTE | 2021-03-20 07:24 | PC.NURSE ---
pc to pharmacy spoke with cristobal and informed him of need of d5 in ns with 20meq of k he verbalized understanding.
[2021-03-20] MEDS: dextrose 5%-ns + KCl 20 20 MEQ/1,000 ML BAG 150 MEQ IV (08:09)
[2021-03-20] MEDS: docusate sodium 100 mg Capsule PO (10:19)
--- NOTE | 2021-03-20 13:17 | PM.PN ---
Subjective Subjective: Interval history: Patient was seen this morning, his abdominal pain has improved, no nausea, no vomiting, had a bowel movement yesterday, no fevers overnight Vitals/I&O/Wt Last Vital Signs Temp 97.6 F 03/18/21 08:15 Pulse 84 03/20/21 05:00 Resp 16 03/20/21 11:59 BP 114/76 03/20/21 05:00 Pulse Ox 99 03/20/21 11:59 03/19/21 03/20/21 03/20/21 22:59 06:59 14:59 Intake Total 1000 / 1000 Balance 1000 / 1000 Physical Exam Const: COMMON NORMALS: no acute distress and patient oriented x3 HENMT: COMMON NORMALS: normocephalic HEAD & SCALP: normocephalic Resp: COMMON NORMALS: normal respiratory effort, No retractions, No use of accessory muscles and clear to auscultation bilaterally AUSCULTATION: clear to auscultation bilaterally Cardio: COMMON NORMALS: regular rate, regular rhythm, S1 normal heart sound present and S2 normal heart sound present RATE: regular rate RHYTHM: regular rhythm HEART SOUNDS: S1 normal heart sound present and S2 normal heart sound present GI: COMMON NORMALS: Normal to inspection, nondistended, normoactive bowel sounds present and Soft to palpation PALPATION: Yes Soft to palpation and Yes Tenderness to palpation present (GI) (Diffuse) Extremity: COMMON NORMALS: no pedal edema Neuro: COMMON NORMALS: patient oriented x3 Psych: COMMON NORMALS: mental status grossly normal Data : 03/20/21 03:40 03/20/21 03:40 A&P Assessment and plan (1) Presence of pancreatic duct stent: -1. Severe stable chronic calcific pancreatitis. 2. Stable cholecystectomy. 3. Stable choledocoduodenal stent. 4. Interval appearance of left pneumobilia which can be normal following cholecystectomy and/or choledocoduodenal stent. 5. Probable partial distal migration of the pancreaticoduodenal stent. -Pancreatic duct migration -Patient is in the process being transferred to [facility], awaiting a bed -Hospitalist team was called for medical management -T bili 3.6, alk phos 435, CRP 141 -We will keep patient n.p.o. -Gentle IV fluids -Morphine for pain control -Zofran for nausea -Patient is complaining of severe abdominal constipation, wants to try to Fleet enema -continue Creon -Full code -Heparin for DVT prophylaxis -Patient tells me that he wants to leave the hospital early in the morning, so he can get up to [facility] tomorrow morning to have the procedure done, I advised against this given his continued pain, his dehydration, elevated bilirubin, his risk of transportation, morbidity and mortality associated. Advised him that the safest way to get to [facility] is to be transferred hospital to hospital, and ambulance, he voiced understanding Diabetes mellitus associate pancreatic disease, low-dose sliding scale Status: Acute (2) Idiopathic chronic pancreatitis: Status: Acute (3) Diabetes mellitus associated with pancreatic disease: Status: Acute (4) Pancreatic stent migration: Status: Acute Attestations Medical Necessity Statement*: Patient is awaiting transfer to [facility] Coding Level of Care Code Acute Lacquer Mixer for Chg Fwd Diagnoses Presence of pancreatic duct stent Z96.89 Idiopathic chronic pancreatitis K86.1 Diabetes mellitus associated with pancreatic disease E11.69; K86.9 Pancreatic stent migration T85.528A
[2021-03-20] MEDS: ondansetron 2 mg/ML SDV 2 mL 4 MG IVP (15:02)
== END 2021-03-20 15:11 | disposition short-term general hospital (02) ==
PROVIDERS: Emergency Medicine; Family Medicine; Physician Assistant; Emergency Provider Family Medicine; PCP Internal Medicine
DX: K86.1 Other chronic pancreatitis (principal); Z96.89 Presence of other specified functional implants; E11.9 Type 2 diabetes mellitus without complications; E78.5 Hyperlipidemia, unspecified; F17.210 Nicotine dependence, cigarettes, uncomplicated; Z20.822 Contact with and (suspected) exposure to COVID-19
CPT/HCPCS: 36415; 36416; 80053; 81003; 82962; 83690; 83735; 84100; 84145; 85025; 86140; 87426; 96365; 96366; 96372; 96375; 96376; 99285; C9113; J1644; J2270; J2405; J7030

== ENCOUNTER 2021-06-21 21:15 | Emergency (ER) | payer MEDICARE, SELFPAY ==
[2021-06-21 21:36] VITALS: BP 131/67; PULSE 64; RESP 16; TEMP 36.5; O2SAT 99; BMI 20.9
--- NOTE | 2021-06-21 23:20 | ED_ITS ---
HPI - Abdominal Pain General: Chief Complaint: Abdominal Pain Stated Complaint: Pancrease Pain from St[place] Time Seen by Provider: 06/21/21 23:19 History of Present Illness: Mr. Johnson is a 61-year-old gentleman with complex past medical history including idiopathic chronic pancreatitis who has had multiple interventions primarily through the [facility] in [place] who presents to the emergency department due to epigastric abdominal pain. Symptom onset was approximately 6 days ago and gradual. He endorses epigastric pain associated with nausea and chills. This is aching/burning in quality and overall has been worsening. Intensity is now moderate to severe. He endorses this being similar to prior episodes. He currently has a biliary stent and has a history of pancreatic stents and is due this month at some point for a exchange. No other specific changes in health, exacerbating, or alleviating factors identified. Onset (ago): day(s) Pain Consistency: constant Location: Epigastric Severity: severe Quality: aching and burning Radiation: back Exacerbating factors: eating Context: history of similar episodes Review of Systems General: Reports: 10 or more systems reviewed and unremarkable except in HPI and below PFSH ED PFSH: Medical History Acute pancreatitis Diabetes GERD (gastroesophageal reflux disease) Hyperlipidemia Idiopathic chronic pancreatitis Insomnia Presence of pancreatic duct stent PTSD (post-traumatic stress disorder) Surgical History History of back surgery S/P cholecystectomy Social History Smoking and tobacco status: current every day smoker cigarettes Packs smoked per day: 1 Alcohol intake: never Physical Exam Const: COMMON NORMALS: alert GENERAL APPEARANCE: cooperative, well developed, in distress (Uncomfortable due to pain) and ill appearing (Mildly) HENMT: COMMON NORMALS: normocephalic and atraumatic HEAD & SCALP: normocephalic and atraumatic Eye: COMMON NORMALS: conjunctivae normal CONJUNCTIVA: Yes conjunctivae normal SCLERA: sclerae normal Neck/C-Spine: COMMON NORMALS: supple GENERAL: Yes trachea midline Resp: COMMON NORMALS: clear to auscultation bilaterally EFFORT & INSPECTION: Yes able to speak in complete sentences AUSCULTATION: clear to auscultation bilaterally Cardio: COMMON NORMALS: regular rate and regular rhythm RATE: regular rate RHYTHM: regular rhythm GI: COMMON NORMALS: Soft to palpation PALPATION: Yes Soft to palpation, Yes Tenderness to palpation present (GI), Yes Guarding due to palpation present (GI) and No Rigid due to palpation PERCUSSION: normal to percussion Extremity: GENERAL: Yes normal exam except as noted and No edema Neuro: COMMON NORMALS: moves all extremities SENSORIUM/ORIENTATION: Yes alert and No Orientation impaired Psych: COMMON NORMALS: mental status grossly normal and Normal thought process present THOUGHT PROCESS: Normal thought process present Course ED course: - Patient was seen and evaluated by me at bedside - Patient placed on cardiac monitors, IV access obtained - Initial evaluation notable for exam as above - Labs personally interpreted by me - Fluids, analgesia, antiemetic ordered - Labs notable for leukocytosis and relative hemoconcentration. Metabolic panel with mild evidence of dehydration, hyperglycemia present without evidence of DKA. Lipase is mildly elevated. - Imaging notable for chronic pancreatitis with possible acute superimposed. Mild superior migration of biliary stent. Mild interval dilation of the main pa ncreatic duct. - Discussed with GI/hepatobiliary at [facility], given normal transaminases and no elevation in bilirubin low clinical suspicion for significance of migration of stent. - Upon serial reexamination after treatment the patient was improved with repeat doses. - Based on patient history, evaluation, and testing as interpreted the most likely cause of the patient's condition is acute on chronic by pancreatitis. - The results of ED evaluation were discussed with the patient including possible disposition options. I offered admission which the patient declined in favor of trial of symptom control at home. I discussed prescriptions and/or symptomatic cares (if applicable) including appropriate and responsible use, followup plan, and return precautions. The patient verbalized understanding and felt safe for discharge. - Patient discharged in satisfactory condition. Note: Click bubbles or prepopulated ridley in note writing are used for assistance with data collection and billing and are inherently more limited than narrative and other text portions of this note. Please use narrative for additional clinical history and defer to narrative/free test for any case of contradictory information. If information appears in only free text or click bubble it should be considered present or absent as reported. Please contact note fiction writer for clarifications of clinical information or contradictory information. MDM is a brief summary, contradictory or erroneous seeming information should be clarified and full note should be reviewed. Vital Signs: Vital signs: Vital Signs Temperature 97.7 F 06/21/21 21:36 Pulse Rate 60 06/22/21 04:42 Respiratory Rate 17 06/22/21 04:42 Blood Pressure 115/71 06/22/21 04:42 Pulse Oximetry 98 06/22/21 04:42 MDM - Abdominal Pain Medical Decision Making [id number] gentleman with history of septic with epigastric pain and associated symptoms similar to prior episodes of acute on chronic pancreatitis. Mild migration of biliary stent without evidence of malfunction. Discussed with [facility]. Patient desires trial of symptom control at home and was discharged with strict return precautions. Medical Records I reviewed the patient's medical records. Lab Data I reviewed the patient's lab results. : 06/21/21 23:35 06/21/21 23:35 Labs/Radiology: Radiology Impressions Abdomen/Pelvis CT 06/21/21 23:44 IMPRESSION: 1. Findings compatible with chronic pancreatitis. There is some haziness seen surrounding the pancreas and some thickening of Gerota's fascia on the left, findings that could represent chronic scarring although superimposed acute pancreatitis cannot be excluded. 2. There is mild superior migration of the biliary stent. The pancreatic stent is absent. 3. There is interval dilatation of the main pancreatic duct. 4. Persistent pneumobilia 5. Stable nonobstructing 3.7 mm left renal calculus 6. Stable 7.3 mm left renal cyst. Laboratory Results WBC 13.3 10^3/uL (4.0-10.0) H 06/21/21 23:35 RBC 5.50 10^6/uL (4.1-5.3) H 06/21/21 23:35 Hgb 15.2 g/dL (11.7-16.6) 06/21/21 23:35 Hct 47.7 % (42.0-52.0) 06/21/21 23:35 MCV 86.7 fl (80-94) 06/21/21 23:35 MCH 27.6 pg (28.0-34.0) L 06/21/21 23:35 MCHC 31.9 g/dL (30.0-36.0) 06/21/21 23:35 RDW 13.0 % (12.1-15.1) 06/21/21 23:35 Plt Count 271 10^3/cmm (130-400) 06/21/21 23:35 MPV 10.5 fL (7.4-10.4) H 06/21/21 23:35 Neut % (Auto) 80.0 % 06/21/21 23:35 Lymph % (Auto) 10.2 % 06/21/21 23:35 Bryan % (Auto) 7.4 % 06/21/21 23:35 Eos % (Auto) 1.3 % 06/21/21 23:35 Baso % (Auto) 0.6 % 06/21/21 23:35 Neut # (Auto) 10.65 10^3/uL (1.8-7.7) H 06/21/21 23:35 Lymph # (Auto) 1.4 10^3/uL (0.8-4.8) 06/21/21 23:35 Bryan # (Auto) 1.0 10^3/uL (0.2-0.9) H 06/21/21 23:35 Eos # (Auto) 0.2 10^3/uL (0.0-0.8) 06/21/21 23:35 Baso # (Auto) 0.1 10^3/uL (0.0-0.1) 06/21/21 23:35 Nucleated RBC % (auto) 0 % 06/21/21: Nucleated RBCs # 0.0 /100WBC 06/21/21 23:35 Sodium 136 mmol/L (136-145) 06/21/21 23:35 Potassium 4.4 mmol/L (3.5-5.1) 06/21/21 23:35 Chloride 96 mmol/L (98-107) L 06/21/21 23:35 Carbon Dioxide 29 mmol/L (22-29) 06/21/21 23:35 Anion Gap 15.4 (5-19) 06/21/21 23:35 BUN 14 mg/dL (8-23) 06/21/21 23:35 Creatinine 0.6 mg/dL (0.7-1.2) L 06/21/21 23:35 GFR Calculation 137.0 mL/min (90-130) H 06/21/21 23:35 Glucose 225 mg/dL (65-115) H 06/21/21 23:35 Calculated Osmolality 290 mOsm/kg (285-295) 06/21/21 23:35 Calcium 8.9 mg/dL (8.5-10.5) 06/21/21 23:35 Total Bilirubin 0.3 mg/dL (0.15-1.2) 06/21/21 23:35 AST 12 U/L (0-40) 06/21/21 23:35 ALT 14 U/L (0-41) 06/21/21 23:35 Alkaline Phosphatase 112 IU/L (40-130) 06/21/21 23:35 Total Protein 7.6 g/dL (6.6-8.7) 06/21/21 23:35 Albumin 4.0 g/dL (3.5-5.2) 06/21/21 23:35 Globulin 3.6 g/dL (1.3-4.6) 06/21/21 23:35 Lipase 147 U/L (13-60) H 06/21/21 23:35 Discharge Plan Discharge Patient Disposition: Home Clinical Impression: Pancreatitis Condition: Stable Prescriptions: New ondansetron 4 mg tablet,disintegrating 4 mg PO Q8H PRN (Reason: nausea and vomiting) Qty: 15 0RF oxycodone 5 mg capsule 5 mg PO DAILY Qty: 10 0RF No Action fluticasone propionate 50 mcg/actuation spray,suspension 1 spray INTRANASAL BID PRN (Reason: Allergy Symptoms) 0RF (DME) FreeStyle Lite Strips Strip See Rx Instructions .ROUTE .MEDSUPPLY Qty: 10 11RF Rx Instructions: three times a day (DME) blood-glucose meter [FreeStyle [place]] Kit See Rx Instructions .ROUTE .MEDSUPPLY Qty: 1 0RF Rx Instructions: As directed (DME) lancets [FreeStyle Lancets] 28 gauge misc See Rx Instructions .Route Qty: 100 3RF Rx Instructions: As directed lovastatin 40 mg tablet 40 mg PO DAILY Qty: 90 3RF ondansetron HCl [Zofran] 4 mg tablet 4 mg PO Q6H PRN (Reason: nausea and vomiting) 14 Days Qty: 40 0RF Toujeo SoloStar U-300 Insulin 300 unit/mL (1.5 mL) insulin pen See Rx Instructions .ROUTE .COMPLEX Qty: 4.5 0RF Dose Instruction: INJECT 20 UNITS UNDER THE SKIN EVERY DAY Rx Instructions: INJECT 20 UNITS UNDER THE SKIN EVERY DAY bisacodyl [Ducodyl (bisacodyl)] 5 mg Tablet,Delayed Release (Dr/Ec) 5 - 10 mg PO DAILY PRN (Reason: Constipation) 0RF pregabalin 50 mg capsule 50 mg PO BID 0RF Creon 24,000-76,000 -120,000 unit capsule,delayed release(DR/EC) See Rx Instructions .ROUTE .COMPLEX 0RF Rx Instructions: 1-2 caps tid with meals and/or snacks oxycodone-acetaminophen [Percocet] 7.5-325 mg tablet 1 tab PO Q6H PRN (Reason: pain) Qty: 10 0RF lactulose 20 gram/30 mL solution 20 g PO DAILY PRN (Reason: laxative effect) Qty: 600 0RF lorazepam 1 mg tablet 1 mg PO DAILY@06 0RF Discharge Orders: Discharge ED (Routine); Ordered 06/22/21 Ordered By: Jean Burton Referrals: Polo Wilson MD [Primary Care Provider] - Discharge Diet: Usual diet Discharge Activity: Resume usual activity Patient Instructions: Pancreatitis (ED), Opioid Safety Activity Restrictions/Additional Instructions: Thank you for visiting the emergency department. You were seen and evaluated for abdominal pain. The most likely cause of your symptoms is acute on chronic pancreatitis. You do have mild migration of your biliary stent however your liver enzymes and bilirubin still appear normal. Please follow-up with [facility] regarding replacement. Please return to the emergency department for worsening symptoms, uncontrolled pain, inability to tolerate oral intake, or anything else that you are concerned about and feel needs emergency department evaluation. Coding Level of Care Code ED Vp Hr Diversity for Lilia Calvin
[2021-06-21 23:30] VITALS: BP 128/77; PULSE 71; RESP 17; O2SAT 100
[2021-06-21 23:42] LABS: Basophils # 0.1 10^3/uL (0.0-0.1); Basophils % 0.6 %; Eosinophils # 0.2 10^3/uL (0.0-0.8); Eosinophils % 1.3 %; Hematocrit 47.7 % (42.0-52.0); Hemoglobin 15.2 g/dL (11.7-16.6); Lymphocytes # 1.4 10^3/uL (0.8-4.8); Lymphocytes % 10.2 %; Mean Corpuscular HGB Conc 31.9 g/dL (30.0-36.0); Mean Corpuscular Hemoglobin 27.6 pg (28.0-34.0); Mean Corpuscular Volume 86.7 fl (80-94); Mean Platelet Volume 10.5 fL (7.4-10.4); Monocytes % 7.4 %; Neutrophils # 10.65 10^3/uL (1.8-7.7); Nucleated Red Blood Cells % 0 %; Platelet Count 271 10^3/cmm (130-400); White Blood Count 13.3 10^3/uL (4.0-10.0)
--- NOTE | 2021-06-21 23:44 | CTR_ITS ---
PROCEDURE INFORMATION: Exam: CT Abdomen And Pelvis With Contrast Exam date and time: 06/22/2021 12:16 AM Age: 61 years old Clinical indication: Abdominal pain; Prior surgery; Surgery date: 6+ months; Surgery type: Panc stent. ; Patient HX: C/O epigastric pain. History of chronic pancreatitis. ; Additional info: Eval pancreatic stent. Abd pain TECHNIQUE: Imaging protocol: Computed tomography of the abdomen and pelvis with contrast. Radiation optimization: All CT scans at this facility use at least one of these dose optimization techniques: automated exposure control; mA and/or kV adjustment per patient size (includes targeted exams where dose is matched to clinical indication); or iterative reconstruction. Contrast material: OMNI 300; Contrast volume: 95 ml; Contrast route: INTRAVENOUS (IV); COMPARISON: CT abdomen pelvis w con* [id number] 03/17/2021 4:34 AM RADIATION DOSE METRICS: Total DLP (mGy-cm): 1590.98 FINDINGS: Liver: See Gallbladder and bile ducts finding. Gallbladder and bile ducts: There is prominent pneumobilia present within the liver and within the common bile duct. There is a biliary stent present extending from the proximal common bile duct near the level of the confluence of the right and left hepatic ducts to the duodenal lumen. The biliary stent appears to have migrated slightly superiorly compared with 03/17/2021. Status post cholecystectomy. Pancreas: A pancreatic stent seen on 03/17/2021 is not seen today. The main pancreatic duct appears more dilated today, previously measuring 5.3 mm, today measuring 8.6 mm. Coarse calcifications are again seen within the pancreatic parenchyma compatible with chronic pancreatitis. There is prominence of the pancreatic head again seen with inhomogeneous pancreatic parenchyma again present. Strandy opacities are seen adjacent to the pancreas and there is mild thickening of Gerota's fascia the left, findings that could represent chronic scarring although superimposed active pancreatitis cannot be excluded. Spleen: Normal. No splenomegaly. Adrenal glands: Normal. No mass. Kidneys and ureters: There is a stable 3.7 mm nonobstructing left renal calculus. A stable 7.3 mm hypoattenuation cystic lesions seen within the anterior aspect of the left kidney. Stomach and bowel: See Gallbladder and bile ducts finding. Appendix: The appendix is visualized and is normal in configuration. Intraperitoneal space: Unremarkable. No free air. No significant fluid collection. Arteries: Unremarkable. No abdominal aortic aneurysm. Lymph nodes: Unremarkable. No enlarged lymph nodes. Urinary bladder: Unremarkable as visualized. Reproductive: Unremarkable as visualized. Bones/joints: Unremarkable. No acute fracture. Soft tissues: Unremarkable. CT/CT abdomen pelvis w con* [id number] IMPRESSION: 1. Findings compatible with chronic pancreatitis. There is some haziness seen surrounding the pancreas and some thickening of Gerota's fascia on the left, findings that could represent chronic scarring although superimposed acute pancreatitis cannot be excluded. 2. There is mild superior migration of the biliary stent. The pancreatic stent is absent. 3. There is interval dilatation of the main pancreatic duct. 4. Persistent pneumobilia 5. Stable nonobstructing 3.7 mm left renal calculus 6. Stable 7.3 mm left renal cyst.
[2021-06-21 23:51] VITALS: RESP 16; O2SAT 98
[2021-06-21] MEDS: ondansetron 2 mg/ML SDV 2 mL 4 MG IVP (23:51)
[2021-06-21] MEDS: HYDROmorphone 1 mg/mL INJ 1 mL IVP (23:51)
[2021-06-21] MEDS: lactated ringers 1,000 ML 999 ML IV (23:52)
[2021-06-22] VITALS (14 sets, daily range): BP systolic 101–131; BP diastolic 61–81; PULSE 56–64; RESP 15–18; O2SAT 97–100
[2021-06-22 00:03] LABS: Alanine Aminotransferase 14 U/L (0-41); Alkaline Phosphatase 112 IU/L (40-130); Blood Urea Nitrogen 14 mg/dL (8-23); Calcium 8.9 mg/dL (8.5-10.5); Carbon Dioxide 29 mmol/L (22-29); Chloride 96 mmol/L (98-107); Globulin 3.6 g/dL (1.3-4.6); Glucose 225 mg/dL (65-115); Lipase 147 U/L (13-60); Osmolality Calculated 290 mOsm/kg (285-295); Sodium 136 mmol/L (136-145); Total Bilirubin 0.3 mg/dL (0.15-1.2); Total Protein 7.6 g/dL (6.6-8.7)
[2021-06-22 00:04] LABS: Anion Gap 15.4 (5-19); Aspartate Amino Transferase 12 U/L (0-40); Potassium 4.4 mmol/L (3.5-5.1)
[2021-06-22] MEDS: HYDROmorphone 1 mg/mL INJ 1 mL IVP (00:44)
--- NOTE | 2021-06-22 03:17 | PC.NURSE ---
Fluid challenge started per Dr Burton ord.
[2021-06-22] MEDS: ondansetron 2 mg/ML SDV 2 mL 4 MG IVP (04:02)
[2021-06-22] MEDS: HYDROmorphone 1 mg/mL INJ 1 mL 0.5 MG IVP (04:05)
--- NOTE | 2021-06-22 10:39 | W.PM.EVENTAC ---
Event Note Event Note: ER physician saw patient, wrote narcotic, did not sign script. No one to reissue script and physician on last night not available currently. I cancelled old Rx electronically and sent script as per ED physician intent last night with same me, quantity etc. I called and discussed with the patient his treatment, that he was still in pain, that he needed the prescription, and I discussed the risks and benefits including abuse with the patient in detail.
== END 2021-06-22 04:45 | disposition home or self-care (01) ==
PROVIDERS: Emergency Provider Emergency Medicine; PCP Internal Medicine
DX: K85.90 Acute pancreatitis without necrosis or infection, unspecified (principal); N20.0 Calculus of kidney; N28.1 Cyst of kidney, acquired; E11.9 Type 2 diabetes mellitus without complications; K21.9 Gastro-esophageal reflux disease without esophagitis; F17.210 Nicotine dependence, cigarettes, uncomplicated
CPT/HCPCS: 74177; 80053; 83690; 85025; 96374; 96375; 96376; 99284; J1170; J2405; Q9967

== ENCOUNTER → 2021-08-09 16:12 | Outpatient (BNVA) | payer MEDICARE, SELFPAY | PROVIDERS: PCP Internal Medicine; Visit Provider Internal Medicine | DX: E11.69 Type 2 diabetes mellitus with other specified complication (principal); K86.9 Disease of pancreas, unspecified; T85.528A Displacement of other gastrointestinal prosthetic devices, implants and grafts, initial encounter; K86.1 Other chronic pancreatitis | CPT/HCPCS: 82962 ==

== ENCOUNTER → 2021-09-06 08:59 | Outpatient (BNVA) | payer MEDICARE, SELFPAY | PROVIDERS: PCP Internal Medicine; Visit Provider Internal Medicine | DX: Z01.818 Encounter for other preprocedural examination (principal) | CPT/HCPCS: 87635 ==

== ENCOUNTER 2024-08-13 20:10 | Emergency (ER) | payer MEDICARE, SELFPAY ==
[2024-08-13 20:19] VITALS: BP 128/71; PULSE 81; RESP 18; TEMP 36.7; O2SAT 97; BMI 25.2
[2024-08-13 22:28] VITALS: BP 140/93; RESP 80; O2SAT 97
--- NOTE | 2024-08-13 22:29 | PC.NURSE ---
PT has upcoming appointment with Dr. Basurto on Friday.
--- NOTE | 2024-08-13 22:30 | XRR_ITS ---
PROCEDURE INFORMATION: Exam: XR Right Foot Exam date and time: 08/13/2024 10:48 PM Age: 64 years old Clinical indication: Swelling, leg or foot; Additional info: Concern for osteo in big toe TECHNIQUE: Imaging protocol: Radiologic exam of the right foot. Views: 3 or more views. COMPARISON: No relevant prior studies available. FINDINGS: Bones/joints: Small osteophytes of the tarsal bones. Insertional calcaneal enthesophyte. Negative for fractures. Unremarkable joint spaces. No aggressive osteolytic lesion is visualized. Soft tissues: Radiographically unremarkable. XR/XR foot RT min 3V* [id number] IMPRESSION: No specific plain film radiographic evidence of osteomyelitis.
--- NOTE | 2024-08-13 22:31 | W.ED.SKABFB ---
HPI - Skin/Abscess/Foreign Bdy General: Chief complaint: Skin/Abscess/Foreign Body Stated complaint: tick, infected bite red swollen, worse Time Seen by Provider: 08/13/24 22:04 History of Present Illness: Patient comes in with concerns for worsening infection of his right big toe. States that he was started on doxycycline a couple of days ago after he noticed a tick under his right big toe which he removed. States that the swelling and redness of that toe has gotten worse over the last couple of days. On physical exam he does have swelling and redness on the inner lateral aspect of his right big toe between his 1st and 2nd digits. He has a small blister developing. No significant erythema tracking up the foot but there is some swelling of that big toe as well. He denies fever. We will check labs, x-ray, and reassess. Differential diagnosis: Acute osteomyelitis, acute cellulitis, acute inflammatory response, acute tickborne illness, acute dermatitis Related Data Home Medications ?Medication ?Instructions ?Recorded ?Confirmed fluticasone propionate 50 1 spray intranasal BID PRN Allergy 04/01/19 08/12/24 mcg/actuation nasal Symptoms spray,suspension hydrocodone 10 mg-acetaminophen tab PO 08/12/24 08/12/24 325 mg tablet Previous Rx's ?Medication ?Instructions ?Recorded blood sugar diagnostic (FreeStyle #10 ea 04/27/20 Lite Strips) blood-glucose meter (FreeStyle #1 ea 04/27/20 [place] kit) lancets 28 gauge (FreeStyle #100 ea 05/21/21 Lancets) insulin glargine U-300 conc 300 60 unit (0.2 mL) SUBCUT DAILY #4.5 01/09/22 unit/mL (1.5 mL) subcutaneous pen mL (Toujeo SoloStar U-300 Insulin) [id number] See Rx Instructions .Route 01/09/22 24,000-76,000-120,000 unit .COMPLEX #100 caps capsule,delayed rel (Creon) lorazepam 1 mg tablet 1 mg PO DAILY #30 tabs 01/09/22 doxycycline hyclate 100 mg tablet 100 mg PO BID 10 days #20 tabs 08/12/24 fluconazole 150 mg tablet 150 mg PO Q3D 2 doses #2 tabs 08/12/24 Allergies Allergy/AdvReac Type Severity Reaction Status Date / Time nabumetone (From Relafen) Allergy Severe ALGY-Anaphy Verified 08/12/24 13:24 laxis Review of Systems Skin/Breast: Reports: erythema (Redness, swelling of the right big toe) [facility] ED PFSH: Medical History (Updated 08/14/24 @ 00:10 by Waldo Marin MD) Vikki onychomycosis Presence of pancreatic duct stent Diabetes Acute pancreatitis GERD (gastroesophageal reflux disease) PTSD (post-traumatic stress disorder) Hyperlipidemia Insomnia Idiopathic chronic pancreatitis Surgical History History of back surgery S/P cholecystectomy Social History Smoking and tobacco/nicotine status: current every day tobacco/nicotine user cigarettes Packs smoked per day: 1 Alcohol intake: never Physical Exam Const: COMMON NORMALS: healthy appearing HENMT: COMMON NORMALS: normocephalic and atraumatic HEAD & SCALP: normocephalic and atraumatic Resp: COMMON NORMALS: normal respiratory effort, No retractions and No use of accessory muscles Cardio: COMMON NORMALS: regular rate RATE: regular rate Extremity: NARRATIVE EXTREMITY EXAM: Swelling of the right big toe, erythema on the medial aspect of the right big toe with a small blister, tenderness to palpation and movement of the right big toe Procedures Abscess I/D Site: foot (Right great toe) Side (if applicable): right Sedation/analgesia: none Technique: incised with #11 blade Amount of fluid expressed (mL): 1 Packing used?: none Complications: other (None) Course Vital Signs: Vital signs: Vital Signs Temperature 98.0 F 08/13/24 20:19 Pulse Rate 81 08/13/24 20:19 Respiratory Rate 80 H 08/13/24 22:28 Blood Pressure 140/93 08/13/24 22:28 Pulse Oximetry 97 08/13/24 22:28 Oxygen Delivery Me thod Room Air 08/13/24 22:28 MDM - Skin/Abscess/Foreign Bdy Medicial Decision Making On reassessment I talked to the patient but his test results. His x-ray shows no signs of osteomyelitis. His white blood cell count was normal at 8.99. His ESR is also within normal limits. His lactic acid came back mildly elevated. Will give him a liter of normal saline. Will also give him a dose of 2 mg of IV morphine. The patient states he [place] less than a block away and walk home. Will discharge at this time with precautions return for worsening or changing symptoms. Lab Data 08/13/24 22:37 08/13/24 22:37 Radiology Impressions Foot X-Ray 08/13/24 22:30 IMPRESSION: No specific plain film radiographic evidence of osteomyelitis. Laboratory Results WBC 8.99 10^3/uL (3.29-11.43) 08/13/24 22:37 RBC 6.36 10^6/uL (3.85-5.65) H 08/13/24 22:37 Hgb 18.10 g/dL (11.27-16.99) H 08/13/24 22:37 Hct 56.7 % (37-53) H 08/13/24 22:37 MCV 89.2 fl (82-101) 08/13/24 22:37 MCH 28.5 pg (27-33) 08/13/24 22:37 MCHC 31.9 g/dL (30-55) 08/13/24 22:37 RDW 13.4 % (12.1-15.1) 08/13/24 22:37 Plt Count 148 10^3/cmm (157-399) L 08/13/24 22:37 MPV 11.5 fL (7.4-10.4) H 08/13/24 22:37 Neut % (Auto) 70.6 % 08/13/24 22:37 Lymph % (Auto) 16.7 % 08/13/24 22:37 Dare % (Auto) 7.1 % 08/13/24 22:37 Eos % (Auto) 3.8 % 08/13/24 22:37 Baso % (Auto) 1.0 % 08/13/24 22:37 Neut # (Auto) 6.35 10^3/uL (1.8-7.7) 08/13/24 22:37 Lymph # (Auto) 1.5 10^3/uL (0.8-4.8) 08/13/24 22:37 Dare # (Auto) 0.6 10^3/uL (0.2-0.9) 08/13/24 22:37 Eos # (Auto) 0.3 10^3/uL (0.0-0.8) 08/13/24 22:37 Baso # (Auto) 0.1 10^3/uL (0.0-0.1) 08/13/24 22:37 Nucleated RBC % (auto) 0 % 08/13/24 22:37 Nucleated RBCs # 0.0 /100WBC 08/13/24 22:37 ESR 3 mm/hr (0-10) 08/13/24 22:37 Sodium 141 mmol/L (136-145) 08/13/24 22:37 Potassium 3.8 mmol/L (3.5-5.1) 08/13/24 22:37 Chloride 101 mmol/L (98-107) 08/13/24 22:37 Carbon Dioxide 27 mmol/L (22-29) 08/13/24 22:37 Anion Gap 16.8 (5-19) 08/13/24 22:37 BUN 13 mg/dL (8-23) 08/13/24 22:37 Creatinine 0.8 mg/dL (0.7-1.2) 08/13/24 22:37 GFR Calculation 97.3 mL/min (90-130) 08/13/24 22:37 Glucose 325 mg/dL (65-115) H 08/13/24 22:37 Calculated Osmolality 305 mOsm/kg (285-295) H 08/13/24 22:37 Lactic Acid 4.0 mmol/L (0.5-2.2) H 08/13/24 22:37 Calcium 9.5 mg/dL (8.5-10.5) 08/13/24 22:37 C-Reactive Protein 6.3 mg/L (0.0-4.9) H 08/13/24 22:37 All radiology interpretation(s) finalized by discharge Discharge Plan Discharge Patient Disposition: Home Clinical Impression: Tick bite Condition: Stable Prescriptions: No Action fluticasone propionate 50 mcg/actuation spray,suspension 1 spray INTRANASAL BID PRN (Reason: Allergy Symptoms) (DME) FreeStyle Lite Strips Strip See Rx Instructions .ROUTE .MEDSUPPLY Qty: 10 11RF Rx Instructions: three times a day (DME) blood-glucose meter [FreeStyle [place]] Kit See Rx Instructions .ROUTE .MEDSUPPLY Qty: 1 0RF Rx Instructions: As directed (DME) lancets [FreeStyle Lancets] 28 gauge misc See Rx Instructions .Route Qty: 100 3RF Rx Instructions: As directed hydrocodone-acetaminophen 10-325 mg tablet PO fluconazole 150 mg tablet 150 mg PO Q3D 0 Days Qty: 2 1RF Rx Instructions: may repeat second dose 72 hrs after first dose if symptoms persist doxycycline hyclate 100 mg tablet 100 mg PO BID 10 Days Qty: 20 0RF Creon 24,000-76,000 -120,000 unit capsule,delayed release(DR/EC) See Rx Instructions .ROUTE .COMPLEX Qty: 100 3RF Dose Instruction: TAKE 1 TO 2 CAPSULES BY MOUTH THREE TIMES DAILY WITH MEALS OR A SNACK Rx Instructions: TAKE 1 TO 2 CAPSULES BY MOUTH THREE TIMES DAILY WITH MEALS OR A SNACK Toujemel[employer] SoloStar U-300 Insulin 300 unit/mL (1.5 mL) insulin pen 60 unit SUBCUT DAILY Qty: 4.5 3RF lorazepam 1 mg tablet 1 mg PO DAILY Qty: 30 3RF Discharge Orders: Discharge ED (Routine); Ordered 08/14/24 Ordered By: Waldo Marin Referrals: Polo Wilson MD [Primary Care Provider, Internal Medicine] Patient Instructions: Cellulitis Print Language: Luxembourgish Coding Level of Care Code ED Customer Support Specialist for Lilia Calvin
[2024-08-13 22:47] LABS: Basophils # 0.1 10^3/uL (0.0-0.1); Eosinophils # 0.3 10^3/uL (0.0-0.8); Eosinophils % 3.8 %; Hematocrit 56.7 % (37-53); Lymphocytes # 1.5 10^3/uL (0.8-4.8); Lymphocytes % 16.7 %; Mean Corpuscular HGB Conc 31.9 g/dL (30-55); Mean Corpuscular Hemoglobin 28.5 pg (27-33); Mean Corpuscular Volume 89.2 fl (82-101); Mean Platelet Volume 11.5 fL (7.4-10.4); Monocytes # 0.6 10^3/uL (0.2-0.9); Monocytes % 7.1 %; Neutrophils # 6.35 10^3/uL (1.8-7.7); Neutrophils % 70.6 %; Nucleated Red Blood Cells % 0 %; Platelet Count 148 10^3/cmm (157-399); Red Blood Count 6.36 10^6/uL (3.85-5.65); Red Cell Distribution Width 13.4 % (12.1-15.1); White Blood Count 8.99 10^3/uL (3.29-11.43)
[2024-08-13 22:48] LABS: Erythrocyte Sedimentation Rate 3 mm/hr (0-10)
[2024-08-13 23:11] LABS: Anion Gap 16.8 (5-19); Blood Urea Nitrogen 13 mg/dL (8-23); C Reactive Protein 6.3 mg/L (0.0-4.9); Calcium 9.5 mg/dL (8.5-10.5); Carbon Dioxide 27 mmol/L (22-29); Chloride 101 mmol/L (98-107); Creatinine Clr Calc Pharmacy 105.9609; Glomerular Filtration Rate 97.3 mL/min (90-130); Glucose 325 mg/dL (65-115); Osmolality Calculated 305 mOsm/kg (285-295); Potassium 3.8 mmol/L (3.5-5.1); Sodium 141 mmol/L (136-145)
[2024-08-13] MEDS: sodium chloride 0.9% 1,000 ML 999 ML IV (23:27)
[2024-08-13] MEDS: ketorolac 30 mg/mL INJ 15 MG IVP (23:35)
[2024-08-14 00:20] VITALS: RESP 18; O2SAT 98
[2024-08-14] MEDS: morphine 4 mg/mL SDV 1 mL 2 MG IVP (00:20)
[2024-08-14 00:27] LABS: Reflex Lactate Order REFLEX LACTIC ORDERD
[2024-08-14 00:30] VITALS: BP 139/70; PULSE 74; RESP 17; O2SAT 98
== END 2024-08-14 00:31 | disposition home or self-care (01) ==
PROVIDERS: Emergency Provider Emergency Medicine; PCP Internal Medicine
DX: L02.611 Cutaneous abscess of right foot (principal); W57.XXXA Bitten or stung by nonvenomous insect and other nonvenomous arthropods, initial encounter; F17.210 Nicotine dependence, cigarettes, uncomplicated; E11.9 Type 2 diabetes mellitus without complications; E78.5 Hyperlipidemia, unspecified
CPT/HCPCS: 10060; 36415; 73630; 80048; 83605; 85025; 85651; 86140; 96361; 96374; 96375; 99284; J1885; J2270; J7030

== ENCOUNTER → 2024-08-17 14:23 | Outpatient (BNVA) | payer MEDICARE, SELFPAY | PROVIDERS: PCP Internal Medicine; Visit Provider Podiatrist Foot & Ankle Surgery | DX: E11.40 Type 2 diabetes mellitus with diabetic neuropathy, unspecified (principal); L03.115 Cellulitis of right lower limb; Z79.4 Long term (current) use of insulin | CPT/HCPCS: 10160; 99204 ==